=== PATIENT | female | born 1950 | race African-American/Black ===

== ENCOUNTER 2022-06-21 07:24 | Inpatient (IN) | payer OTHER ==
[~2022-06-21] VITALS: Ht 170.2 cm; Wt 130.6 kg
[~2022-06-21 07:24] MED LIST: AMLO5TAB PO; ASPI-1822 PO; BACL10TA4 PO; FURO-572 PO; GABA100C PO; HYDR-1098 PO; LORA10TA19 PO; OLOP5DRO19 LEFT EYE; OLOP5DRO19 RIGHT EYE; PRED20TA5 PO
[2022-06-21 07:43] VITALS: BP 154/72
[2022-06-21] MEDS ORDERED: cefTRIAXone 2,000 MG in DEXTROSE 5% 100 ML IV ONE (07:45)
[2022-06-21] MEDS ORDERED: ACETAMINOPHEN EXTRA STRENGTH 500 MG TAB PO ONE (07:50)
--- NOTE | 2022-06-21 08:00 | NUR ---
PT TAKEN TO RADIOLOGY VIA KRAIG
--- NOTE | 2022-06-21 08:17 | NUR ---
PT BROUGHT BACK VIA KRAIG
--- NOTE | 2022-06-21 08:35 | NUR ---
71YO FEMALE PT BIBA DIALYSIS. PER [facility], 911 WAS CALLED 1HR INTO 4HR DIALYSIS SESSION AFTER PT WAS TACHY AND W/ TEMP OF 101.9. AT ARRIVAL PT AAOX1 TO NAME W/ DELAYED MUMBLED SPEECH- UNKNOWN BASELINE. RECEIVED ON 3L VIA NC AT 96%. CAMILLE WHEEZING NOTED. PORT IN R UPPER CHEST . DENIES PAIN, N/V/D OR SOB. ON NUTTER UP. BED AT LOWEST POSITION, BED RAILS UPX2. HX: HTN, CHF, ESRD, CATH R UPPER CHEST -DIALYSIS (M/W/F) NKA
--- NOTE | 2022-06-21 09:01 | NUR ---
IV INSERTION UNSUCCESSFUL BY [address] QUACH MADE AWARE. ULTRASOUND AT BEDSIDE FOR ULTRASOUND IV
[2022-06-21 09:38] LABS: BASOPHILS % (AUTO) 0.2 % (0.0-2.0); EOSINOPHILS % (AUTO) 0.1 % (0.0-4.0); HEMATOCRIT 30.6 % (36-48); HEMOGLOBIN 9.9 g/dL (12.0-16.0); LYMPHOCYTES # (AUTO) 1.8 K/uL (2.5-16.5); LYMPHOCYTES % (AUTO) 11.7 % (20.5-51.1); MEAN CORPUSCULAR HEMOGLOBIN 31 pg (27-31); MEAN CORPUSCULAR HGB CONC 32 g/dL (33-37); MEAN CORPUSCULAR VOLUME 95.4 fL (80-94); MONOCYTES # (AUTO) 1.4 K/uL (0.8-1.0); MONOCYTES % (AUTO) 9.4 % (1.7-9.3); NEUTROPHILS # (AUTO) 11.8 K/uL (1.8-7.7); NEUTROPHILS % (AUTO) 78.6 % (42.2-75.2); PLATELET COUNT (AUTO) 247 K/uL (140-450); WHITE BLOOD COUNT (AUTO) 15.1 K/uL (4.8-10.8)
[2022-06-21] MEDS ORDERED: cefTRIAXone 2,000 MG VIAL ONE (09:40)
--- NOTE | 2022-06-21 10:00 | NUR ---
# 8 FR Urinary catheter inserted utilizing sterile technique. Immediate return of 20 ml CLOUDY YELLOW urine noted. Urine sample collected and sent to lab. Pt tolerated procedure WELL.
[2022-06-21 10:03] LABS: ACETAMINOPHEN < 0.5 ug/ml (10-30); ALBUMIN 3.3 g/dL (3.4-5.0); ANION GAP 17.3 (8-16); ASPARTATE AMINOTRANSFERASE 23 U/L (15-37); CARBON DIOXIDE 29.6 mmol/L (21-32); CHLORIDE 95 mmol/L (98-107); GLUCOSE 123 mg/dL (74-106); POTASSIUM 3.9 mmol/L (3.5-5.1); SALICYLATE < 2.8 mg/dL (2.8-20.0); SODIUM SERUM 138 mmol/L (136-145); TOTAL BILIRUBIN 0.5 mg/dL (0.0-1.0); UREA NITROGEN, BLOOD 26 mg/dL (7-18)
[2022-06-21 10:04] LABS: CREATININE 4.7 mg/dL (0.6-1.3)
[2022-06-21 10:30] LABS: APPEARANCE,URINE CLOUDY (CLEAR); BILIRUBIN,URINE 1+ (NEGATIVE); BLOOD, URINE 2+ (NEGATIVE); COLOR,URINE AMBER (YELLOW); LEUKOCYTE ESTERASE ,URINE 2+ (NEGATIVE); NITRITE, URINE NEGATIVE (NEGATIVE); PH,URINE 5.5 (5.0-9.0); UGLUCOSE NEGATIVE (NEGATIVE)
--- NOTE | 2022-06-21 10:30 | NUR ---
MADE AWARE OF PT VITALS
[2022-06-21] MEDS ORDERED: ACET-8211 PO (10:32)
[2022-06-21] MEDS ORDERED: IBUPROFEN 600 MG TAB PO ONE (10:35)
[2022-06-21 10:51] LABS: RBC,URINE 20-50 /HPF (0-5); WBC,URINE 16-25 (MOD) /HPF (0-5)
[2022-06-21 10:52] LABS: OTHER CASTS, URINE None Seen /LPF (None Seen)
--- NOTE | 2022-06-21 12:05 | NUR ---
VERBAL ORDERS RECEIVED FROM MD BONE. ORDERS READ BACK, CONFIRMED AND CARRIED OUT.
[2022-06-21] MEDS ORDERED: NACL 0.9% 1,000 ML IV SCH ×2 (12:10→16:25)
[2022-06-21] MEDS ORDERED: VANCOMYCIN PER PHARMACY MC PRN (14:35)
[2022-06-21] MEDS ORDERED: ALBUTEROL HFA MDI 90 MCG/ACTUATION 8 GM INH PRN (14:35)
[2022-06-21] MEDS ORDERED: ALBUTEROL 0.083% 2.5 MG/3 ML NEBU INH PRN (14:45)
[2022-06-21] MEDS ORDERED: ALBUTEROL SULFATE/IPRATROPIU 3 ML SOL IH PRN (15:35)
[2022-06-21] MEDS ORDERED: NOREPINEPHRINE 4 MG/4 ML VIAL IV ONE (15:44)
--- NOTE | 2022-06-21 15:44 | NUR ---
MD BONE MADE AWARE OF PT BP.
[2022-06-21] MEDS: NOREPINEPHRINE 4 MG in DEXTROSE 5% 250 ML IV PRN (15:50)
[2022-06-21] MEDS ORDERED: VANCOMYCIN 1,500 MG in DEXTROSE 5% 500 ML IV SCH (16:00)
[2022-06-21] MEDS ORDERED: VANCOMYCIN 1,500 MG in NACL 0.9% 500 ML IV SCH (16:00)
[2022-06-21] MEDS ORDERED: HYDROcodone/APAP 7.5/325 MG 1 TAB PO PRN (16:25)
[2022-06-21] MEDS ORDERED: ONDANSETRON 4 MG/2 ML VIAL IVP PRN (16:25)
--- NOTE | 2022-06-21 16:45 | NUR ---
NOTED : BP AT 86/52, PT ON LEVAPHED AT 8MCG, PLACED PT ON TRENDE[place]G POSITION. WILL CONTINUE TO MONITOR
[2022-06-21 16:59] LABS: HEMATOCRIT 28.1 % (36-48); HEMOGLOBIN 9.3 g/dL (12.0-16.0); MEAN CORPUSCULAR HEMOGLOBIN 31 pg (27-31); MEAN CORPUSCULAR HGB CONC 33 g/dL (33-37); MEAN CORPUSCULAR VOLUME 92.8 fL (80-94); PLATELET COUNT (AUTO) 236 K/uL (140-450); RED BLOOD CELL COUNT(AUTO) 3.03 MIL/uL (4.20-5.40); RED CELL DISTRIBUTION WIDTH 14.7 % (11.6-13.7)
[2022-06-21 17:02] LABS: WHITE BLOOD COUNT (AUTO) 32.1 K/uL (4.8-10.8)
[2022-06-21] MEDS ORDERED: VANCOMYCIN 1,000 MG VIAL ONE (17:09)
[2022-06-21] MEDS ORDERED: VANCOMYCIN 500 MG VIAL ONE (17:10)
[2022-06-21 17:14] LABS: ANION GAP 14.5 (8-16); CARBON DIOXIDE 29.2 mmol/L (21-32); CHLORIDE 98 mmol/L (98-107); GLUCOSE 123 mg/dL (74-106); POTASSIUM 3.7 mmol/L (3.5-5.1); SODIUM SERUM 138 mmol/L (136-145); UREA NITROGEN, BLOOD 30 mg/dL (7-18)
[2022-06-21 17:19] LABS: PROTHROMBIN TIME 10.7 secs (10.8-13.4)
[2022-06-21 17:25] LABS: LYMPHOCYTES % (MANUAL) 6 % (20-46); METAMYELOCYTES % 1 % (0-0); MONOCYTES % (MANUAL) 1 % (5-12); PROMYELOCYTES % 1 % (0-0)
[2022-06-21 17:27] LABS: CREATININE 5.2 mg/dL (0.6-1.3)
[2022-06-21 17:30] LABS: CHOL/HDL RATIO 3.5 (1-4.5); FREE T4 (FREE THYROXINE) 1.19 ng/dL (0.76-1.46); MAGNESIUM 1.6 mg/dL (1.8-2.4); PHOSPHORUS 3.7 mg/dL (2.5-4.9); THYROID STIMULATING HORMONE 0.6 uIU/mL (0.34-3.74)
[2022-06-21 17:34] LABS: BARBITURATE, URINE NEGATIVE ng/ml (NEG <=200); BENZODIAZEPINE, URINE NEGATIVE ng/mL (NEG <=200); CANNABINOID, URINE NEGATIVE ng/mL (NEG <=50); COCAINE, URINE NEGATIVE ng/mL (NEG <=300); OPIATE, URINE NEGATIVE ng/mL (NEG <=2000); PHENCYCLIDINE SCREEN,URINE NEGATIVE ng/mL (NEG <=25)
[2022-06-21] MEDS: ALBUTEROL SULFATE/IPRATROPIU 3 ML SOL IH SCH (18:00)
--- NOTE | 2022-06-21 19:02 | NUR ---
TX NOT GIVEN. NO WHEEZING, NO C/O SOB, AND PT IN [place]G POSITION FOR THERAPEUTIC REASON
[2022-06-21] MEDS: DOCUSATE SODIUM 100 MG GELCAP PO SCH (21:00)
[2022-06-21] MEDS ORDERED: PIPERACILLIN/TAZOBACTAM 3.375 GM in DEXTROSE 5% 50 ML IV SCH (21:00)
[2022-06-21] MEDS: ZINC SULF 220 MG CAP PO SCH (21:00)
--- NOTE | 2022-06-21 21:44 | NUR ---
PT NEEDS SWALLOW EVAL PRIOR TO PO MEDICATIONS DUE TO LOC.
[2022-06-21] MEDS ORDERED: PIPERACILLIN/TAZOBACTAM 2.25 GM VIAL IV ONE (21:50)
[2022-06-21] MEDS: PIPERACILLIN/TAZOBACTAM 2.25 GM in DEXTROSE 5% 50 ML IV SCH (21:57)
--- NOTE | 2022-06-21 23:35 | NUR ---
PT MOVED TO BED #7
--- NOTE | 2022-06-21 23:40 | NUR ---
INCONTINENT OF LARGE SOFT STOOL. CLEANSED, ANGEL CARE GIVEN, PURWICK CHANGED. PT POSITIONED FOR COMFORT
--- NOTE | 2022-06-22 | NUR ---
REPORT TO SUKH AUSTIN
--- NOTE | 2022-06-22 02:00 | NUR ---
RESTING COMFORTABLY WITH EYES CLOSED, RESPIRATIONS REGULAR AND UNLABORED
[2022-06-22] MEDS: PIPERACILLIN/TAZOBACTAM 2.25 GM in DEXTROSE 5% 50 ML IV SCH ×3 (05:08→21:49)
[2022-06-22] MEDS ORDERED: PIPERACILLIN/TAZOBACTAM 2.25 GM VIAL IV ONE ×3 (05:10→21:41)
--- NOTE | 2022-06-22 06:00 | NUR ---
awake, calling out. ASSISTED WITH POSITIONING FOR COMFORT
--- NOTE | 2022-06-22 07:23 | NUR ---
REPORT TO GEOVANNA HESTER
--- NOTE | 2022-06-22 07:30 | NUR ---
RECEIVED REPORT FROM SUKH AUSTIN AND [facility]
[2022-06-22] MEDS: ALBUTEROL SULFATE/IPRATROPIU 3 ML SOL IH SCH ×3 (07:45→18:32)
--- NOTE | 2022-06-22 07:57 | NUR ---
LAB AT BEDSIDE
[2022-06-22 08:13] LABS: BASOPHILS # (AUTO) 0.1 K/uL (0.00-0.22); BASOPHILS % (AUTO) 0.2 % (0.0-2.0); EOSINOPHILS # (AUTO) 0.1 K/uL (0-0.4); EOSINOPHILS % (AUTO) 0.2 % (0.0-4.0); HEMATOCRIT 31.4 % (36-48); HEMOGLOBIN 10.3 g/dL (12.0-16.0); LYMPHOCYTES # (AUTO) 1.7 K/uL (2.5-16.5); LYMPHOCYTES % (AUTO) 5.9 % (20.5-51.1); MEAN CORPUSCULAR HEMOGLOBIN 31 pg (27-31); MEAN CORPUSCULAR HGB CONC 33 g/dL (33-37); MONOCYTES # (AUTO) 2.4 K/uL (0.8-1.0); MONOCYTES % (AUTO) 8.5 % (1.7-9.3); NEUTROPHILS # (AUTO) 23.9 K/uL (1.8-7.7); NEUTROPHILS % (AUTO) 85.2 % (42.2-75.2); PLATELET COUNT (AUTO) 202 K/uL (140-450); RED BLOOD CELL COUNT(AUTO) 3.34 MIL/uL (4.20-5.40); RED CELL DISTRIBUTION WIDTH 14.9 % (11.6-13.7)
[2022-06-22 08:24] LABS: WHITE BLOOD COUNT (AUTO) 28.1 K/uL (4.8-10.8)
[2022-06-22 08:31] LABS: ANION GAP 18.9 (8-16); CARBON DIOXIDE 22.7 mmol/L (21-32); CHLORIDE 96 mmol/L (98-107); GLUCOSE 121 mg/dL (74-106); POTASSIUM 4.6 mmol/L (3.5-5.1); SODIUM SERUM 133 mmol/L (136-145); UREA NITROGEN, BLOOD 36 mg/dL (7-18)
[2022-06-22 08:32] LABS: CREATININE 5.6 mg/dL (0.6-1.3)
[2022-06-22] MEDS: DOCUSATE SODIUM 100 MG GELCAP PO SCH ×2 (09:00→21:53)
--- NOTE | 2022-06-22 09:13 | NUR ---
PATIENT HAS BEEN SCREENED AND CATEGORIZED MODERATE NUTRITION RISK. PATIENT WILL BE SEEN WITHIN 3-5 DAYS OF ADMISSION. REVIEWED BY BRADEN COTTO RD
[2022-06-22 09:15] LABS: PHOSPHORUS 5.8 mg/dL (2.5-4.9)
[2022-06-22] MEDS: ZINC SULF 220 MG CAP PO SCH ×2 (09:19→21:53)
[2022-06-22] MEDS: PANTOPRAZOLE 40 MG INJ VIAL IVP SCH (09:20)
[2022-06-22] MEDS: ASCORBIC ACID 500 MG TAB PO SCH (09:20)
[2022-06-22] MEDS: VITAMIN D 400 IU TAB PO SCH (09:21)
--- NOTE | 2022-06-22 10:40 | NUR ---
# 18 FR Alejandro catheter with sterile technique. Immediate return of 100 ml CLOUDY urine noted. Bedside drainage bag placed below level of bladder. Urine sample collected and sent to lab. Pt tolerated procedure WELL.
--- NOTE | 2022-06-22 10:42 | NUR ---
PT HAD ONE EPISODE OF LOOSE STOOL
[2022-06-22] MEDS: EPOETIN ALFA-EPBX 4,000 UNITS/ML VIAL IV SCH (11:10)
[2022-06-22] MEDS: SEVELAMER CARBONATE 800 MG TAB PO SCH ×2 (12:00→17:00)
--- NOTE | 2022-06-22 12:15 | NUR ---
pT LAYING IN BED. ABLE TO MAKE NEEDS KNOWN. ALL VSS
[2022-06-22] MEDS: metroNIDAZOLE 500 MG TAB PO SCH ×2 (12:29→17:00)
--- NOTE | 2022-06-22 14:20 | NUR ---
PT LAYING IN BED. TALKING TO DAUGHTER ON PHONE. ABLE TO MAKE NEEDS KNOWN. NO CONFUSION AT THIS TIME
--- NOTE | 2022-06-22 16:47 | NUR ---
PT ASLEEP IN BED AT THIS TIME. ALL BED RAILS UP FOR SAFETY AND BED IN LOWEST POSITION. ALL VSS
--- NOTE | 2022-06-22 17:01 | NUR ---
DC PLANNING PER NOTES, PT ALERT AND ORIENTED X1, THEREFORE, SW OUTREACHED TO TO GATHER COLLATERAL INFORMATION. SPOKE WITH SOPHIA BOLAND WHO REPORTS PT IS IN LONG-TERM CARE WITH FACILITY, ADMISSION DATE; 09/12/21. KYA REPORTS PT'S EMERGENCY CONTACT, GABRIEL, SILVESTRE KAVON ADAMES,SISTER, / [phone]. PT IS REPORTED TO BE A&O X3 AT BASELINE AND IS ABLE TO MAKE NEEDS KNOWN. PT IS REPORTS TO BE PRIMARILY BEDBOUND AND REQUIRES ASSISTANCE WITH ALL ADL;'S THAT STAFF AIDS WITH. PT IS REPORTED TO BE COMPLIANT WITH CARE. KYA REPORTS PT'S SISTER, KAVON IS ACTIVE IN CARE AND IS AWARE PT HAS BEEN ADMITTED TO [facility]. KYA REPORTS PT RECEIVES DIALYSIS TX WITH [facility] ON AT 4:30AM, TRANSPORTATION ARRANGED BY FACILITY, TREATING NEPH. DR. PRABHU WALTER. KYA REPORTS DC PLAN IS FOR PT TO RETURN TO , WHEN MEDICALLY STABLE. Addendum: 06/22/22 at 1703 by Juwan MILLER Amended: Links added.
[2022-06-22] MEDS: NOREPINEPHRINE 4 MG in DEXTROSE 5% 250 ML IV PRN (17:19)
--- NOTE | 2022-06-22 17:29 | NUR ---
PT BP LOW, RESTARTED LEVO
--- NOTE | 2022-06-22 19:40 | NUR ---
ASSUMED CARE OF PT AT THIS TIME. PT UPDATED ON POC. PT IN POSITION OF COMFORT. DENIES ANY PAIN OR NEEDS AT THIS TIME. VSS. AWAITING BED ASSIGNMENT.
--- NOTE | 2022-06-22 20:30 | NUR ---
REPORT CALLED TO BALTAZAR AUSTIN WITH FULL RETURNED VERBAL UNDERSTANDING. PT GOING TO ICU BED 6
--- NOTE | 2022-06-22 20:45 | NUR ---
Patient will be admitted to care of DR. BONE. Admited to ICU. Will go to room 6. Belongings list completed. Report to BALTAZAR AUSTIN.
[2022-06-22 21:00] VITALS: BP 110/60
[2022-06-22 22:00] VITALS: BP 115/65
[2022-06-23] VITALS (10 sets, daily range): BP systolic 104–161; BP diastolic 55–80
[2022-06-23] MEDS ORDERED: PIPERACILLIN/TAZOBACTAM 2.25 GM VIAL IV ONE (05:39)
[2022-06-23] MEDS: PIPERACILLIN/TAZOBACTAM 2.25 GM in DEXTROSE 5% 50 ML IV SCH ×2 (05:45→12:00)
[2022-06-23] MEDS: ALBUTEROL SULFATE/IPRATROPIU 3 ML SOL IH SCH ×3 (06:00→18:00)
[2022-06-23] MEDS ORDERED: VANCOMYCIN PER PHARMACY MC PRN (08:25)
[2022-06-23] MEDS: PANTOPRAZOLE 40 MG INJ VIAL IVP SCH (08:41)
[2022-06-23] MEDS: SEVELAMER CARBONATE 800 MG TAB PO SCH ×3 (08:41→16:56)
[2022-06-23] MEDS: DOCUSATE SODIUM 100 MG GELCAP PO SCH ×2 (08:41→20:12)
[2022-06-23] MEDS: VITAMIN D 400 IU TAB PO SCH (08:41)
[2022-06-23] MEDS: ZINC SULF 220 MG CAP PO SCH ×2 (08:42→20:13)
[2022-06-23] MEDS: ASCORBIC ACID 500 MG TAB PO SCH (08:42)
--- NOTE | 2022-06-23 08:52 | NUR ---
PT. WITH LOW NABEEL SCALE AT MODERATE TO HIGH RISK, CONTINUE TO FOLLOW PRESSURE INJURY PREVENTION INTERVENTIONS. -POSITIONING: TURN AND REPOSITION PATIENT Q 2H OR SOONER USE PILLOWS TO KEEP BONY PROMINENCES FROM DIRECT CONTACT WITH SURFACES USE REPOSITIONING WEDGES TO PROVIDE 30-DEGREE ANGLE FOR SIDE LYING POSITIONS OFFLOADING OR FOAM DRESSING TO ALL TUBING TO PREVENT MEDICAL DEVICES RELATED PRESSURE INJURY -RE-EVALUATING AND MANAGING INCONTINENCE MONITOR SKIN CONDITION DURING POSITION CHANGE DO NOT MASSAGE REDNESS, BONY PROMINENCES FREQUENT ANGEL-CARE AND PROVIDE BARRIER CREAMS PRN IF SOILING MOISTURE CONTROL BY OFFER BED MOYER/URINAL /ABSORBENT PAD TO WICK AND HOLD MOISTURE KEEP SKIN DRY AND PROTECT FROM FRICTION -MANAGE FRICTION/SHEAR/MOBILITY KEEP HOB AT THE LOWEST LEVEL OF ELEVATION NO MORE THAN 30 DEGREE UNLESS OTHERWISE CONTRAINDICATED USE LIFT SHEET OR TRANSFER DEVICE TO MOVE PATIENT AND PREVENT LATERAL SHEER. PROTECT HEELS, ELBOWS BONY PROMINENCES WITH SKIN BERRIES OR FOAM DRESSING IF EXPOSED TO FRICTION OFFLOAD BILATERAL HEELS BY PLACING PILLOWS UNDER CALVES AT ALL TIMES, UNLESS OTHERWISE CONTRAINDICATED -PRESSURE REDISTRIBUTION SURFACE THERAPY MINE ISOFLEX MATTRESS -NUTRITION: PLEASE FOLLOW RD RECOMMENDATIONS AND OFFER NUTRITION SUPPLEMENTS IF ORDERED. PLEASE CONTACT WOUND CARE NURSE FOR ANY QUESTION AND CHANGE OF WOUND CONDITION.
--- NOTE | 2022-06-23 09:00 | NUR ---
SCHEDULED MEDICATIONS DUE GIVEN. WILL CONTINUE TO MONITOR.
[2022-06-23] MEDS: ACETAMINOPHEN 325 MG TAB PO PRN ×2 (09:55→16:55)
--- NOTE | 2022-06-23 09:55 | NUR ---
COMPLAINS OF MILD HEADACHES, TYLENOL PO PRN GIVEN.
[2022-06-23 11:26] LABS: CARBON DIOXIDE 28.4 mmol/L (21-32); CHLORIDE 92 mmol/L (98-107); GLUCOSE 116 mg/dL (74-106); POTASSIUM 4.4 mmol/L (3.5-5.1); SODIUM SERUM 132 mmol/L (136-145); UREA NITROGEN, BLOOD 55 mg/dL (7-18)
[2022-06-23 11:28] LABS: BASOPHILS % (AUTO) 0.1 % (0.0-2.0); HEMATOCRIT 24.6 % (36-48); HEMOGLOBIN 8.2 g/dL (12.0-16.0); LYMPHOCYTES # (AUTO) 1.6 K/uL (2.5-16.5); LYMPHOCYTES % (AUTO) 5.8 % (20.5-51.1); MEAN CORPUSCULAR HEMOGLOBIN 31 pg (27-31); MEAN CORPUSCULAR HGB CONC 33 g/dL (33-37); MEAN CORPUSCULAR VOLUME 91.3 fL (80-94); MONOCYTES # (AUTO) 1.4 K/uL (0.8-1.0); MONOCYTES % (AUTO) 4.8 % (1.7-9.3); NEUTROPHILS # (AUTO) 25.4 K/uL (1.8-7.7); NEUTROPHILS % (AUTO) 89.3 % (42.2-75.2); PLATELET COUNT (AUTO) 240 K/uL (140-450); RED BLOOD CELL COUNT(AUTO) 2.69 MIL/uL (4.20-5.40); RED CELL DISTRIBUTION WIDTH 14.6 % (11.6-13.7)
[2022-06-23 11:30] LABS: MAGNESIUM 2.2 mg/dL (1.8-2.4)
[2022-06-23 11:44] LABS: WHITE BLOOD COUNT (AUTO) 28.5 K/uL (4.8-10.8)
--- NOTE | 2022-06-23 12:00 | NUR ---
SCHEDULED MEDICATIONS DUE GIVEN.
--- NOTE | 2022-06-23 14:17 | NUR ---
PATIENT LYING DOWN IN BED SLEEPING AROUSABLE BY VOICE. NO DISTRESS NOTED. NO BM YET FOR CDIFF SAMPLE. WILL CONTINUE TO MONITOR.
[2022-06-23] MEDS: FLUCONAZOLE 200 MG/NS PREMIX 100 ML IV SCH (17:50)
--- NOTE | 2022-06-23 18:59 | NUR ---
NURSES NOTE PATIENT TRANSFER FROM ICU TO OUR FLOOR NOW , VSS , ON ROOM AIR , SKIN INTACT SALINE LOCKED , LOWER EXTREMITY EDEMA , MISSED HD YESTERDAY, A/OX3 , STILL UNDE5R V OBSERVE .
--- NOTE | 2022-06-23 19:09 | NUR ---
GAVE REPORT TO CARGO AND RAMP SERVICES MANAGER NURSE FOR CONTINUITY OF CARE.
--- NOTE | 2022-06-23 19:29 | NUR ---
REPORT GIVEN TO RUBEN , ALL HIS QUESTION ANSWERED .
--- NOTE | 2022-06-23 20:00 | NUR ---
RECEIVED REPORT FROM DAY RN FOR CONTINUITY OF CARE. PT AWAKE, ALERT AND ORIENTED X 4, ON ROOM AIR. BREATHING EVEN AND UNLABORED. NO S/SX OF DISTRESS NOTED. ALL PRECAUTIONS IN PLACE. CALL LIGHT WITHIN REACH. WILL CONTINUE TO MONITOR.
--- NOTE | 2022-06-23 20:47 | NUR ---
PATIENT AWAKE WATCHING TV, LYING SEMI FOWLERS POSITION. SCHEDULED MEDICATIONS GIVEN. NO SIGNS OF DISTRESS NOTED, WILL CONTINUE TO MONITOR.
[2022-06-24] VITALS: BP 123/80
--- NOTE | 2022-06-24 01:47 | NUR ---
PT ASLEEP. NO S/SX OF DISTRESS NOTED. ALL PRECAUTIONS IN PLACE. CALL LIGHT WITHIN REACH. WILL CONTINUE TO MONITOR.
[2022-06-24 04:00] VITALS: BP 116/66
[2022-06-24] MEDS: ALBUTEROL SULFATE/IPRATROPIU 3 ML SOL IH SCH ×3 (06:45→20:40)
[2022-06-24 06:58] LABS: HEMOGLOBIN 7.7 g/dL (12.0-16.0); MEAN CORPUSCULAR HEMOGLOBIN 30 pg (27-31); MEAN CORPUSCULAR HGB CONC 34 g/dL (33-37); MEAN CORPUSCULAR VOLUME 90.5 fL (80-94); PLATELET COUNT (AUTO) 249 K/uL (140-450); RED BLOOD CELL COUNT(AUTO) 2.54 MIL/uL (4.20-5.40); RED CELL DISTRIBUTION WIDTH 14.8 % (11.6-13.7)
--- NOTE | 2022-06-24 07:05 | NUR ---
PT IS STABLE. NO ACUTE EVENTS THROUGHOUT THE NIGHT. NO S/SX OF DISTRESS AT THIS MOMENT. ALL NEEDS ATTENDED. ALL PRECAUTIONS IN PLACE. CALL LIGHT WITHIN REACH. WILL CONTINUE TO MONITOR.
[2022-06-24 07:18] LABS: ANION GAP 19.4 (8-16); CARBON DIOXIDE 23.9 mmol/L (21-32); CHLORIDE 91 mmol/L (98-107); GLUCOSE 111 mg/dL (74-106); PHOSPHORUS 5.4 mg/dL (2.5-4.9); POTASSIUM 4.3 mmol/L (3.5-5.1); SODIUM SERUM 130 mmol/L (136-145)
[2022-06-24 07:37] LABS: CREATININE 7.1 mg/dL (0.6-1.3); UREA NITROGEN, BLOOD 77 mg/dL (7-18)
[2022-06-24 08:00] VITALS: BP 130/63
[2022-06-24] MEDS: SEVELAMER CARBONATE 800 MG TAB PO SCH ×3 (08:00→17:37)
[2022-06-24] MEDS: ZINC SULF 220 MG CAP PO SCH ×2 (09:00→20:25)
[2022-06-24] MEDS: PANTOPRAZOLE 40 MG INJ VIAL IVP SCH (09:00)
[2022-06-24] MEDS: ASCORBIC ACID 500 MG TAB PO SCH (09:00)
[2022-06-24] MEDS: DOCUSATE SODIUM 100 MG GELCAP PO SCH ×2 (09:00→20:26)
[2022-06-24] MEDS: VITAMIN D 400 IU TAB PO SCH (09:00)
[2022-06-24] MEDS: EPOETIN ALFA-EPBX 4,000 UNITS/ML VIAL IV SCH (09:00)
[2022-06-24 09:13] LABS: WHITE BLOOD COUNT (AUTO) 27.3 K/uL (4.8-10.8)
[2022-06-24 09:14] LABS: LYMPHOCYTES % (MANUAL) 4 % (20-46); MONOCYTES % (MANUAL) 3 % (5-12)
--- NOTE | 2022-06-24 11:10 | NUR ---
AT ROUGHLY 0920, DIALYSIS WAS STARTED. DIALYSIS NURSE SPOKE WITH DR FERGUSON AND AUTHORIZED PT TO GET THE DIALYSIS THROUGH CURRENT PORT.
--- NOTE | 2022-06-24 11:42 | NUR ---
DR FERGUSON AND DR GONZALEZ MADE AWARE OF DISCHARGE FROM RIGHT CHEST PERMA CATH.
[2022-06-24 12:00] VITALS: BP 116/67
[2022-06-24] MEDS ORDERED: VANCOMYCIN 1,000 MG in DEXTROSE 5% 250 ML IV SCH (15:00)
[2022-06-24 16:00] VITALS: BP 122/50
--- NOTE | 2022-06-24 18:43 | NUR ---
PT HD REMOVED AT ROUHGHLY 1330, NO BLEEDING NOTED. PENDING PROCEDURE FOR HD TUNNEL PLACEMENT 06/25/2022. ALL SAFETY MEASURES IN PLACE, CALL WITHIN REACH. WILL CONTINUE TO MONITOR.
--- NOTE | 2022-06-24 19:30 | NUR ---
RECEIVED REPORT FROM DAY SHIFT NURSE. PATIENT IS AWAKE, A&O X4. PT IS ON ROOM AIR. +1 EDEMA LOCATED IN LOWER EXTREMITIES, BUT OVERALL SKIN IS INTACT. PT HAS TWO IV'S IN THE RIGHT FOREARM, GAUGE 22 AND 18, BOTH PATENT, NO SIGNS OF INFECTION/INFILTRATION NOTED. PT PLACED IN HIGH FOWLERS POSITION, BED LOWERED TO LOWEST POINT AND CALL LIGHT WITHIN REACH. WILL CONTINUE TO MONITOR.
[2022-06-24 20:00] VITALS: BP 98/58
--- NOTE | 2022-06-24 20:30 | NUR ---
SCHEDULED MEDICATIONS GIVEN, NO SIGNS OF DISTRESS NOTED, WILL CONTINUE TO MONITOR.
[2022-06-24] MEDS: ACETAMINOPHEN 325 MG TAB PO PRN (21:22)
--- NOTE | 2022-06-24 21:25 | NUR ---
PATIENT REPORTED BACK PAIN ON A SCALE OF 4/10. TYLENOL WAS ADMINISTERED PRN, PER PHYSICIANS ORDER. NO OTHER SIGNS OF PAIN NOTED, WILL CONTINUE TO MONITOR.
[2022-06-25] VITALS: BP 112/52
--- NOTE | 2022-06-25 | NUR ---
PT S ASLEEP. NO SIGNS OR SYMPTOMS OF DISTRESS NOTED. ALL PRECAUTIONS IN PLACE. CALL LIGHT WITHIN REACH. WILL CONTINUE TO MONITOR.
--- NOTE | 2022-06-25 02:48 | NUR ---
AT AROUND 0145, PATIENT BEGAN EXPERIENCING AN UNCONTROLLABLE COUGH. PT EXPLAINED THE COUGH HAS BEEN ON AND OFF THROUGHOUT THE DAY AND NIGHT. REQUESTED AN ORDER FOR ROBITUSSIN TO HELP EASE SYMPTOMS. PT OTHERWISE STABLE. RAISED HOB, ALL SAFETY PRECAUTIONS IN PLACE AND CALL LIGHT WITHIN REACH, WILL CONTINUE TO MONITOR.
[2022-06-25 04:00] VITALS: BP 108/59
[2022-06-25] MEDS: ALBUTEROL SULFATE/IPRATROPIU 3 ML SOL IH SCH ×3 (06:00→20:11)
[2022-06-25 07:00] LABS: HEMATOCRIT 22.8 % (36-48); HEMOGLOBIN 7.6 g/dL (12.0-16.0); MEAN CORPUSCULAR HEMOGLOBIN 30 pg (27-31); MEAN CORPUSCULAR HGB CONC 33 g/dL (33-37); MEAN CORPUSCULAR VOLUME 90.5 fL (80-94); PLATELET COUNT (AUTO) 256 K/uL (140-450); RED BLOOD CELL COUNT(AUTO) 2.52 MIL/uL (4.20-5.40); RED CELL DISTRIBUTION WIDTH 14.7 % (11.6-13.7); WHITE BLOOD COUNT (AUTO) 19.3 K/uL (4.8-10.8)
--- NOTE | 2022-06-25 07:09 | NUR ---
ENDORSED PT TO DAY SHIFT RN FOR CONTINUITY OF CARE. PT IS STABLE.
[2022-06-25 07:19] LABS: ANION GAP 16.6 (8-16); CARBON DIOXIDE 25.9 mmol/L (21-32); CHLORIDE 97 mmol/L (98-107); GLUCOSE 143 mg/dL (74-106); POTASSIUM 3.5 mmol/L (3.5-5.1); SODIUM SERUM 136 mmol/L (136-145); UREA NITROGEN, BLOOD 47 mg/dL (7-18)
--- NOTE | 2022-06-25 07:30 | NUR ---
RECEIVED REPORT FROM US MARKETING DIRECTOR NURSE FOR CONTINUITY OF CARE, POC DISCUSSED. PT IS LAYING IN BED ON HER PHONE, CHEST RISING AND FALLING WITH AN INTERMITTENT COUGH NOTED. PT REPORTS SLEEPING DURING THE NIGHT. ALL SAFETY MEASURES IN PLACE, CALL LIGHT WITHIN REACH. WILL CONTINUE TO MONITOR.
--- NOTE | 2022-06-25 07:30 | NUR ---
PATIENT REFUSED SCHEDULED 0700 BREATHING TREATMENT. EXCLAIMED THEY ARE OK AND WILL NOT NEED IT. EXPLAINED BENEFITS FROM BREATHING TREATMENTS. EXPLAINED IF THE PATIENT NEEDED A BREATHING TREATMENT BEFORE NEXT SCHEDULED BREATHING TREATMENT, 1300, GIVE ME OR THE NURSE CALL.PATIENT AGREED.
[2022-06-25 07:37] LABS: MAGNESIUM 1.9 mg/dL (1.8-2.4); PHOSPHORUS 4.1 mg/dL (2.5-4.9)
[2022-06-25 07:57] LABS: CREATININE 5.1 mg/dL (0.6-1.3)
[2022-06-25 08:00] VITALS: BP 119/80
[2022-06-25] MEDS: SEVELAMER CARBONATE 800 MG TAB PO SCH ×3 (08:00→17:00)
[2022-06-25] MEDS: VITAMIN D 400 IU TAB PO SCH (09:00)
[2022-06-25] MEDS: ZINC SULF 220 MG CAP PO SCH ×2 (09:00→20:36)
[2022-06-25] MEDS: ASCORBIC ACID 500 MG TAB PO SCH (09:00)
[2022-06-25] MEDS: guaiFENesin 600 MG TABER PO SCH ×2 (09:00→20:36)
[2022-06-25] MEDS: DOCUSATE SODIUM 100 MG GELCAP PO SCH ×2 (09:00→20:36)
[2022-06-25] MEDS: PANTOPRAZOLE 40 MG INJ VIAL IVP SCH (09:00)
--- NOTE | 2022-06-25 09:00 | NUR ---
ALL MORNING MEDICATION HELD DUE TO NPO STATUS FOR HD PROCEDURE. PT REFUSED IVP PROTIX. BENEFITS EXPLAINED TO PT. PT ASKED REGARDING REFUSAL FOR BREATHING TREATMENT AND STATES IT CAUSES HER TO COUGH MORE. EDUCATION PROVIDED. VSS. ALL SAFETY MEASURES IN PLACE, CALL LIGHT WITHIN REACH WILL CONTINUE TO MONITOR
[2022-06-25 09:27] LABS: BASOPHILS # (AUTO) 0.1 K/uL (0.00-0.22); BASOPHILS % (AUTO) 0.4 % (0.0-2.0); EOSINOPHILS % (AUTO) 0.1 % (0.0-4.0); LYMPHOCYTES # (AUTO) 2.2 K/uL (2.5-16.5); LYMPHOCYTES % (AUTO) 11.2 % (20.5-51.1); LYMPHOCYTES % (MANUAL) 18 % (20-46); MONOCYTES # (AUTO) 1.7 K/uL (0.8-1.0); MONOCYTES % (AUTO) 8.6 % (1.7-9.3); MONOCYTES % (MANUAL) 4 % (5-12); NEUTROPHILS # (AUTO) 15.4 K/uL (1.8-7.7); NEUTROPHILS % (AUTO) 79.7 % (42.2-75.2); PLATELET COUNT,MANUAL 256 K/uL (150-450)
--- NOTE | 2022-06-25 10:15 | NUR ---
PAGED DR GONZALEZ REGARDING TIME OF HD PROCEDURE. PT SISTER AND PT EXPRESSING THEIR FRUSTRATION REGARDING NO ASSIGNED TIME. INFORMED THEM SOON DR GONZALEZ RESPONDS, RN WILL UPDATE THEM.
[2022-06-25 12:00] VITALS: BP 130/84
--- NOTE | 2022-06-25 12:48 | NUR ---
ROOF FITTER AT BEDSIDE. PT STABLE.
--- NOTE | 2022-06-25 13:53 | NUR ---
RIGHT FOREARM IV REMOVED, CATH IN PLACE. ALL SAFETY MEASURES IN PLACE. CALL LIGHT WITHIN REACH. WILL CONTINUE TO MONITOR.
--- NOTE | 2022-06-25 14:07 | NUR ---
CALLED PTS SISTER TO UPDATE HER ON STILL WAITING TO HEAR FROM DR GONZALEZ. PAGED ATTENDING FOR ANY UPDATES ON PROCEDURE AND DIET ORDER.
--- NOTE | 2022-06-25 14:51 | NUR ---
SPOKE TO DR GONZALEZ, DR GONZALEZ STATED PT CAN HAVE A DIET ORDER, NO URGENT NEED FOR DIALYSIS AT THIS TIME. GUILLERMINA CATHETER WILL BE INSERTED INSTEAD WHEN NEEDED, HOLIDAY FOR A FEW DAYS TO TREND LAB AND RESOLVE INFECTION. PT UPDATED, NEPHRO AT BEDSIDE EXPLAINING AND ANSWERING QUESTIONS. SISTER CALLED AND GIVEN AN UPDATE. LAB CURRENTLY AT BEDSIDE DRAWING BLOOD CULTURES. RAJA SANDWICH PROVIDED TO PT UPON REQUEST.
[2022-06-25 16:00] VITALS: BP 123/78
--- NOTE | 2022-06-25 16:46 | NUR ---
06/25/22 RD INITIAL ASSESSMENT COMPLETED PLEASE REFER TO NUTRITION ASSESSMENT UNDER CARE ACTIVITY FOR ESTIMATED NUTRITIONAL NEEDS. 1. CONTINUE RENAL DIET 2. RECOMMEND NEPRO 1XDAY. 3. MONITOR PO INTAKE, GI, AND LAB VALUES. 4. RD TO FOLLOW-UP 3-5 DAYS, MODERATE RISK REVIEWED BY BRADEN COTTO RD
--- NOTE | 2022-06-25 16:47 | NUR ---
SISTER AT BEDSIDE REPORTING PATIENT CHOKING, PT SAT UP AND ABLE TO STOP COUGHING. VITAL SIGNS TAKEN, 152/86, 109 HEART RATE, 94% O2, 26 RR. PT STATES SHE "TOOK TOO BIG OF A BITE AND IT WENT DOWN THE WRONG TUBE". SUCTION HAS BEEN SET UP AT BEDSIDE, RESP THERAPY CALLED DUE TO PT BEING AGREEABLE TO BREATHING TREATMENT.
[2022-06-25] MEDS: FLUCONAZOLE 200 MG/NS PREMIX 100 ML IV SCH (18:15)
--- NOTE | 2022-06-25 18:20 | NUR ---
KAREN MEDICATION ADMINISTERED PER MD ORDER, PT TOLERATED ADMINISTRATION. IV PATENT AND INTACT WITH NO S/S OF DISTRESS. ALL SAFETY MEASURES IN PLACE, CALL LIGHT WITHIN REACH. WILL CONTINUE TO MONITOR
--- NOTE | 2022-06-25 18:53 | NUR ---
ALL NEEDS HAVE BEEN MET THROUGHOUT THE SHIFT, ALL SAFETY MEASURES IN PLACE. CALL LIGHT WITHIN REACH. PT STABLE
--- NOTE | 2022-06-25 19:30 | NUR ---
RECEIVED REPORT FROM DAY SHIFT RN RAUL FOR CONTINUITY OF CARE. PT IS AWAKE AND ALERT. PT IS ON RA SATING 94%. PT HAS INTERMITTENT COUGH. PT HAS FC DRAINING TO GRAVITY. PT HAS RIGHT FOREARM 18 GAUGE SALINE LOCK. POC DISCUSSED. WILL CONTINUE TO MONITOR THE PT.
[2022-06-25 20:00] VITALS: BP 103/51
[2022-06-25] MEDS: ACETAMINOPHEN 325 MG TAB PO PRN (20:37)
--- NOTE | 2022-06-25 20:40 | NUR ---
SCHEDULE MEDICATIONS GIVEN. NO ADVERSE REACTION NOTED. NO COMPLAINS AT THIS TIME. WILL CONTINUE TO MONITOR THE PT.
[2022-06-26] VITALS: BP 127/68
--- NOTE | 2022-06-26 00:15 | NUR ---
VITAL SIGNS TAKEN AND STABLE. PT DENIES ANY PAIN AND HAS NO COMPLAINS. PT NOT IN ANY RESPIRATORY DISTRESS. PT STILL HAS INTERMITTENT COUGH.
--- NOTE | 2022-06-26 02:35 | NUR ---
PT S ASLEEP. NO SIGNS OR SYMPTOMS OF DISTRESS NOTED. ALL PRECAUTIONS IN PLACE. CALL LIGHT WITHIN REACH. WILL CONTINUE TO MONITOR.
[2022-06-26 04:00] VITALS: BP 131/79
--- NOTE | 2022-06-26 04:15 | NUR ---
VITAL SIGNS TAKEN AND STABLE. PT IS RESTING IN BED. PT IS CALM. DENIES ANY PAIN AND HAS NO COMPLAINS. WILL CONTINUE TO MONITOR THE PT.
[2022-06-26] MEDS: ALBUTEROL SULFATE/IPRATROPIU 3 ML SOL IH SCH ×3 (06:00→18:00)
--- NOTE | 2022-06-26 07:09 | NUR ---
ENDORSED PT TO DAY SHIFT RN TERRI FOR CONTINUITY OF CARE. PT IS STABLE.
--- NOTE | 2022-06-26 07:10 | NUR ---
RECEIVED REPORT FRON V BELT SKIVER NURSE FOR CONTINUITY OF ARE. PT IS STABLE.
[2022-06-26 07:24] LABS: BASOPHILS # (AUTO) 0.1 K/uL (0.00-0.22); BASOPHILS % (AUTO) 0.3 % (0.0-2.0); EOSINOPHILS # (AUTO) 0.4 K/uL (0-0.4); EOSINOPHILS % (AUTO) 2.2 % (0.0-4.0); HEMATOCRIT 23.2 % (36-48); HEMOGLOBIN 7.8 g/dL (12.0-16.0); LYMPHOCYTES # (AUTO) 3.7 K/uL (2.5-16.5); LYMPHOCYTES % (AUTO) 20.9 % (20.5-51.1); MEAN CORPUSCULAR HEMOGLOBIN 31 pg (27-31); MEAN CORPUSCULAR HGB CONC 34 g/dL (33-37); MEAN CORPUSCULAR VOLUME 91.4 fL (80-94); MONOCYTES # (AUTO) 2.3 K/uL (0.8-1.0); MONOCYTES % (AUTO) 12.7 % (1.7-9.3); NEUTROPHILS # (AUTO) 11.4 K/uL (1.8-7.7); NEUTROPHILS % (AUTO) 63.9 % (42.2-75.2); PLATELET COUNT (AUTO) 269 K/uL (140-450); RED BLOOD CELL COUNT(AUTO) 2.54 MIL/uL (4.20-5.40); RED CELL DISTRIBUTION WIDTH 15.2 % (11.6-13.7); WHITE BLOOD COUNT (AUTO) 17.9 K/uL (4.8-10.8)
--- NOTE | 2022-06-26 07:30 | NUR ---
BREATHING TREATMENT ON HOLD. PT WAS SLEEPING.
[2022-06-26 07:36] LABS: ANION GAP 16.2 (8-16); CARBON DIOXIDE 26.4 mmol/L (21-32); CHLORIDE 97 mmol/L (98-107); GLUCOSE 119 mg/dL (74-106); POTASSIUM 3.6 mmol/L (3.5-5.1); SODIUM SERUM 136 mmol/L (136-145); UREA NITROGEN, BLOOD 60 mg/dL (7-18)
[2022-06-26 07:51] LABS: CREATININE 5.9 mg/dL (0.6-1.3)
[2022-06-26 08:00] VITALS: BP 137/73
[2022-06-26 08:31] LABS: MAGNESIUM 1.6 mg/dL (1.8-2.4); PHOSPHORUS 4.4 mg/dL (2.5-4.9)
[2022-06-26] MEDS: SEVELAMER CARBONATE 800 MG TAB PO SCH ×3 (09:00→17:10)
[2022-06-26] MEDS ORDERED: FUROSEMIDE 40 MG TAB PO SCH (09:00)
[2022-06-26] MEDS: guaiFENesin 600 MG TABER PO SCH ×2 (09:01→20:14)
[2022-06-26] MEDS: PANTOPRAZOLE 40 MG INJ VIAL IVP SCH (09:01)
[2022-06-26] MEDS: EPOETIN ALFA-EPBX 4,000 UNITS/ML VIAL IV SCH (09:01)
[2022-06-26] MEDS: ZINC SULF 220 MG CAP PO SCH ×2 (09:02→20:16)
[2022-06-26] MEDS: DOCUSATE SODIUM 100 MG GELCAP PO SCH ×2 (09:02→20:16)
[2022-06-26] MEDS: VITAMIN D 400 IU TAB PO SCH (09:03)
[2022-06-26] MEDS: ASCORBIC ACID 500 MG TAB PO SCH (09:04)
[2022-06-26 12:00] VITALS: BP 123/57
[2022-06-26] MEDS ORDERED: MAG SULF 2000 MG/WATER PREMIX 50 ML IV PRN (12:20)
[2022-06-26 16:00] VITALS: BP 132/72
[2022-06-26] MEDS ORDERED: diphenhydrAMINE 50 MG/ML VIAL IVP PRN (17:20)
--- NOTE | 2022-06-26 17:51 | NUR ---
PT REPORTS BREATHING HAS BECOME EASIER AND THAT LUNGS FEEL MORE OPEN. NOT REALLY WORKING WITH THE IS. I HAD HER DO IT 8 TIMES. SHE IS NOT REALLY ABLE TO HOLD BREATH AT THE END AND HER MAX READING WAS 1000. I REMINDED HER THAT SHE NEEDS TO DO THIS 8-10 TIMES PER HOUR. I WENT BACK 2 HOURS LATER AND SHE HAD ONLY DONE IT TWICE. i REALLY EXPLAINED THE REASON THIS IS SO IMPORTANT. SHE IS COUGHING BUT IT IS NONPREDUCTIVE. TH IS WILL HELP LOOSEN AND MOVE THE SECRETIONS. sHE WAS MORE AMENABLE TO PERFORM THE TASK.
--- NOTE | 2022-06-26 19:10 | NUR ---
ENDORSED T TO FLANGE MACHINE OPERATOR FOR CONTINUITY OF CARE. PT IS STABLE.
--- NOTE | 2022-06-26 19:30 | NUR ---
RECEIVED REPORT FROM DAY SHIFT GEOVANNA MURRAY FOR CONTINUITY OF CARE. PT IS AWAKE AND ALERT. PT IS ON RA SATING 93%. . PT HAS FC DRAINING TO GRAVITY. PT HAS RIGHT FOREARM 122 GAUGE ON LEFT FOREARM SALINE LOCK. POC DISCUSSED. WILL CONTINUE TO MONITOR THE PT.
[2022-06-26 20:00] VITALS: BP 144/70
[2022-06-26] MEDS: ACETAMINOPHEN 325 MG TAB PO PRN (20:16)
--- NOTE | 2022-06-26 20:19 | NUR ---
SCHEDULE MEDICATION GIVEN. NO ADVERSE REACTION NOTED. WILL CONTINUE TO MONITOR THE PT.
[2022-06-27] VITALS: BP 136/72
--- NOTE | 2022-06-27 00:05 | NUR ---
OBSERVED PT. PT IS SLEEPING COMFORTABLY IN BED. PT NOT IN ANY ACUTE DISTRESS. BREATHING EVEN AND UNLABORED. VITAL SIGNS STABLE. IVF RUNNING PER MD ORDER. SAFETY PRECAUTIONS TAKEN. WILL CONTINUE TO MONITOR
[2022-06-27 04:00] VITALS: BP 142/77
--- NOTE | 2022-06-27 04:05 | NUR ---
VITAL SIGNS TAKEN AND STABLE. PT NOT IN ANY RESPIRATORY DISTRESS. PT HAS NO COMPLAINS AT THIS TIME. BED AT THE LOWEST POSITION. HEAD OF THE BED RAISED. WILL CONTINUE TO MONITOR THE PT.
[2022-06-27] MEDS: ALBUTEROL SULFATE/IPRATROPIU 3 ML SOL IH SCH ×3 (06:00→20:45)
--- NOTE | 2022-06-27 07:05 | NUR ---
RECEIVED REPORT FRON TRIMMER BUFFING WHEEL NURSE FOR CONTINUITY OF ARE. PT IS STABLE.
--- NOTE | 2022-06-27 07:06 | NUR ---
ENDORSED PT TO DAY SHIFT RN FOR CONTINUITY OF CARE. PT IS STABLE.
[2022-06-27 08:00] VITALS: BP 121/57
[2022-06-27] MEDS: SEVELAMER CARBONATE 800 MG TAB PO SCH ×3 (08:00→16:52)
[2022-06-27 09:01] LABS: BASOPHILS % (AUTO) 0.2 % (0.0-2.0); HEMATOCRIT 24.3 % (36-48); LYMPHOCYTES # (AUTO) 2.5 K/uL (2.5-16.5); LYMPHOCYTES % (AUTO) 11.5 % (20.5-51.1); MEAN CORPUSCULAR HEMOGLOBIN 30 pg (27-31); MEAN CORPUSCULAR HGB CONC 33 g/dL (33-37); MEAN CORPUSCULAR VOLUME 91.6 fL (80-94); MONOCYTES % (AUTO) 4.5 % (1.7-9.3); NEUTROPHILS # (AUTO) 18.5 K/uL (1.8-7.7); NEUTROPHILS % (AUTO) 83.8 % (42.2-75.2); PLATELET COUNT (AUTO) 291 K/uL (140-450); RED BLOOD CELL COUNT(AUTO) 2.65 MIL/uL (4.20-5.40); RED CELL DISTRIBUTION WIDTH 15.8 % (11.6-13.7); WHITE BLOOD COUNT (AUTO) 22.1 K/uL (4.8-10.8)
[2022-06-27 09:10] LABS: ANION GAP 19.9 (8-16); CARBON DIOXIDE 22.3 mmol/L (21-32); CHLORIDE 97 mmol/L (98-107); GLUCOSE 160 mg/dL (74-106); POTASSIUM 4.2 mmol/L (3.5-5.1); SODIUM SERUM 135 mmol/L (136-145)
[2022-06-27 09:14] LABS: UREA NITROGEN, BLOOD 85 mg/dL (7-18)
[2022-06-27 09:15] LABS: CREATININE 5.6 mg/dL (0.6-1.3)
[2022-06-27] MEDS: PANTOPRAZOLE 40 MG INJ VIAL IVP SCH (09:40)
[2022-06-27] MEDS: DOCUSATE SODIUM 100 MG GELCAP PO SCH ×2 (09:41→21:14)
[2022-06-27] MEDS: guaiFENesin 600 MG TABER PO SCH ×2 (09:41→21:14)
[2022-06-27] MEDS: VITAMIN D 400 IU TAB PO SCH (09:41)
[2022-06-27] MEDS: ASCORBIC ACID 500 MG TAB PO SCH (09:41)
[2022-06-27 12:00] VITALS: BP 152/67
[2022-06-27 16:00] VITALS: BP 134/76
[2022-06-27] MEDS: FLUCONAZOLE 200 MG/NS PREMIX 100 ML IV SCH (18:46)
--- NOTE | 2022-06-27 19:35 | NUR ---
ENDORSED PT TO TOOL GRINDER FOR CONTINUITY OF CARE. PT STABLE.
--- NOTE | 2022-06-27 19:35 | NUR ---
RECEIVED ENDORSEMENT FROM DAY SHIFT NURSE. PT IS AWAKE , ALERT AND VERBALLY RESPONSIVE. PT NON AMBULATORY. SHE IS AT ROOM AIR. NPO AT THIS TIME DUE TO DIALYSIS SHUNT PLACEMENT TOMORROW. IV SITE IS ON LEFT FOREARM 22G AND IS SALINE LOCK.
[2022-06-27 20:00] VITALS: BP 150/76
--- NOTE | 2022-06-27 21:00 | NUR ---
PT IS AWAKE AND WATCH TV, SHE IS STABLE, DENIES OF PAIN OR DISCOMFORT. NO SOB OR DISTRESS.
[2022-06-28] VITALS: BP 150/76
--- NOTE | 2022-06-28 00:20 | NUR ---
PT NOTED TO BE SLEEPY.
--- NOTE | 2022-06-28 03:30 | NUR ---
PT IS SLEEPING, NO SOB OR DISTRESS.
[2022-06-28 04:00] VITALS: BP 113/71
--- NOTE | 2022-06-28 07:25 | NUR ---
PT IS STABLE. ENDORSED TO DAY SHIFT NURSE FOR CONTINUITY OF CARE.
[2022-06-28 08:00] VITALS: BP 143/50
[2022-06-28] MEDS: SEVELAMER CARBONATE 800 MG TAB PO SCH ×3 (08:00→17:00)
[2022-06-28] MEDS: ALBUTEROL SULFATE/IPRATROPIU 3 ML SOL IH SCH ×2 (08:29→12:00)
[2022-06-28 09:27] LABS: ANION GAP 20.3 (8-16); CARBON DIOXIDE 23.6 mmol/L (21-32); CHLORIDE 94 mmol/L (98-107); GLUCOSE 112 mg/dL (74-106); POTASSIUM 3.9 mmol/L (3.5-5.1); SODIUM SERUM 134 mmol/L (136-145)
[2022-06-28 09:30] LABS: UREA NITROGEN, BLOOD 97 mg/dL (7-18)
[2022-06-28 09:31] LABS: CREATININE 5.4 mg/dL (0.6-1.3)
[2022-06-28 09:37] LABS: HEMATOCRIT 24.3 % (36-48); MEAN CORPUSCULAR HEMOGLOBIN 30 pg (27-31); MEAN CORPUSCULAR HGB CONC 33 g/dL (33-37); MEAN CORPUSCULAR VOLUME 90.9 fL (80-94); PLATELET COUNT (AUTO) 344 K/uL (140-450); RED BLOOD CELL COUNT(AUTO) 2.67 MIL/uL (4.20-5.40); RED CELL DISTRIBUTION WIDTH 15.7 % (11.6-13.7)
[2022-06-28] MEDS: guaiFENesin 600 MG TABER PO SCH ×2 (09:50→21:46)
[2022-06-28] MEDS: DOCUSATE SODIUM 100 MG GELCAP PO SCH ×2 (09:51→21:45)
[2022-06-28] MEDS: PANTOPRAZOLE 40 MG INJ VIAL IVP SCH (09:52)
[2022-06-28 10:18] LABS: LYMPHOCYTES % (MANUAL) 12 % (20-46); MONOCYTES % (MANUAL) 9 % (5-12); WHITE BLOOD COUNT (AUTO) 25.1 K/uL (4.8-10.8)
[2022-06-28 12:00] VITALS: BP 158/77
[2022-06-28] MEDS ORDERED: LIDOCAINE MPF 1% 10 ML ONE (13:34)
[2022-06-28] MEDS ORDERED: BUPIVACAINE-MPF/EPI 0.25% 10 ML VIAL INJ ONE (13:34)
--- NOTE | 2022-06-28 13:57 | NUR ---
PATIENT OUT OF ROOM - SURGERY WATERWAY TRAFFIC CHECKER TO ATTEMPT HHN THERAPY AT A LATER TIME
[2022-06-28] MEDS ORDERED: PROPOFOL 200 MG/20 ML VIAL IV ONE ×2 (14:03→14:15)
[2022-06-28] MEDS ORDERED: HYDROmorphone 1 MG/ML AMP IVP PRN (14:30)
[2022-06-28] MEDS ORDERED: hydrALAZINE 20 MG/ML VIAL IVP PRN (14:31)
--- NOTE | 2022-06-28 14:55 | NUR ---
RECEIVED PATIENT IN BED RESTING WELL. PATIENT REMINDED NOT TO EAT OR DRINK BEFORE HER DIALYSIS ACCESS PLACEMENT AND PATIENT VERBALIZED UNDER STANDING. PATIENT DENIENED ANY PAIN AT THIS TIME . WILL MONITOR.
--- NOTE | 2022-06-28 14:58 | NUR ---
PATIENT VIA BED AN HOUR AGO LEFT THE AREA VIA BED IN A STABLE CONDITION TO OR FOR DIALYSIS ACCESS PLACEMENT.
--- NOTE | 2022-06-28 15:29 | NUR ---
PATIENT JUST CAME BACK FROM OR WITH DIALYSIS CATHETER PLACED AT THE LEFT EJ. RADIOLOGIST CALLED TO SAY THAT THE CATHETER DON'T SEEM TO BE IN PLACE AND THAT A CT CHEST SHOULD BE ORDERED TO CONFIRM PLACEMENT OF THE HEMODIALYSIS CATHETER PLACED AND THAT THE PRIMARY CARE DOCTOR SHOULD BE NOTIFIED. Addendum: 06/28/22 at 1536 by Agency Nurse GEOVANNA Medina RN DR. VETO YI WAS THE RADIOLOGIST THAT CALLED AND SAID THAT THE NEWLY INSERTED DIALYSIS CATHETER LOOKED ABNORMAL ON THE CHEST X-RAY AND RECOMMENDS CT CHEST FOR THE PATIENT IN ORDER TO CONFIRM PROPER PLACEMENT OF THE DIALYSIS CATHETER.
[2022-06-28 16:00] VITALS: BP 153/82
--- NOTE | 2022-06-28 17:03 | NUR ---
PATIENT OUT OF ROOM - RADIOLOGY SHEET MANUFACTURING SUPERVISOR TO ENDORSE TO NOC SHIFT
--- NOTE | 2022-06-28 19:10 | NUR ---
PATIENT VIA BED, LEFT THE AREA IN A STABLE CONDITION TO RADIOLOGY DEPARTMENT FOR ORDERED CT CHEST TO VERIFY CATHETER PLACEMENT AND BACK . PATIENT MADE COMFORTABLE IN ROOM AND DINNER WAS SERVED PATIENT. RESULT OF THE CT STILL PENDING. INDUSTRIAL TRUCK OPERATOR STAFF TO FOLLOW UP. PATIENT RESTING WELL IN BED. NO CHANGE IN CONDITION.
[2022-06-28 20:00] VITALS: BP 153/82
--- NOTE | 2022-06-28 20:10 | NUR ---
RECEIVED PT ON BED, SITTING UP RELAX AND ABLE TO VERBALIZED NEEDS. DIALYSIS SITE PROCEDURE DONE TODAY ON LEFT IJ. PT IS ON STABLE CONDITION. CONTINUE MONITORING ON CONDITION. NO CHANGE OF CONDITION AT THIS TIME.
[2022-06-29] VITALS: BP 151/76
[2022-06-29 04:00] VITALS: BP 127/66
--- NOTE | 2022-06-29 05:30 | NUR ---
RENDERED PERSONAL HYGIENE AND CHANGE DIAPER. PT BM X 1 OF MODERATE AND SOFT STOOL. PT DENIES OF PAIN OR DISCOMFORT.
--- NOTE | 2022-06-29 06:38 | NUR ---
PT IS ON STABLE CONDITION. DIALYSIS SITE ON LEFT IJ INTACT, WRAPPED WITH CLEAN DRESSING AND DRY. PT TOLERATES WELL AND DENIES OF ANY PAIN OR DISCOMFORT. WILL ENDORSE TO DAY SHIFT NURSE FOR CONTINUITY OF CARE.
[2022-06-29 08:00] VITALS: BP 179/91
[2022-06-29] MEDS: SEVELAMER CARBONATE 800 MG TAB PO SCH ×3 (08:00→17:00)
[2022-06-29] MEDS: guaiFENesin 600 MG TABER PO SCH ×2 (09:28→21:53)
[2022-06-29] MEDS: DOCUSATE SODIUM 100 MG GELCAP PO SCH ×2 (09:28→21:53)
[2022-06-29] MEDS: PANTOPRAZOLE 40 MG INJ VIAL IVP SCH (09:28)
[2022-06-29] MEDS: EPOETIN ALFA-EPBX 4,000 UNITS/ML VIAL IV SCH (09:42)
[2022-06-29 12:00] VITALS: BP 141/79
[2022-06-29] MEDS ORDERED: VANCOMYCIN PER PHARMACY MC PRN (12:35)
[2022-06-29] MEDS ORDERED: ALTEPLASE 2 MG VIAL MC SCH (15:30)
--- NOTE | 2022-06-29 15:45 | NUR ---
HEMODIALYSIS STARTED AND LASTED FOR 45 MINUTES ONLY BECAUSE THE DIALYSIS ACCESS WAS NOT WORKING PER DIALYSIS NURSE.. brick and block mason AWARE AND ORDERED ACTVASE. sAME WAS GIVEN BY THE DIALYSIS NURSE. hEMODIALYSIS NURSE PULLED OUT 300CC OUT ONLY BEFORE THE ACTIVASE. tHE ACTIVASE IS EXPECTED TO BE IN THE CATHETER FOR ABOUT 1-3 HOURS. tHE DIALYSIS NURSE WILL HAVE TO COMS BACK LATER OR SOME OTHER PERSON FROM HER GROUP WILL BE HERE TO CHECK AND SEE IF THE CATHETER IS PATENT. PATIENT RESTING WELL IN BED. WILL CONTINUE TO MONITOR.
[2022-06-29 16:00] VITALS: BP 148/73
[2022-06-29] MEDS: ALBUTEROL SULFATE/IPRATROPIU 3 ML SOL IH SCH ×3 (17:47→18:00)
[2022-06-29] MEDS: FLUCONAZOLE 200 MG/NS PREMIX 100 ML IV SCH (18:23)
[2022-06-29 20:00] VITALS: BP 114/66
--- NOTE | 2022-06-29 20:04 | NUR ---
RECEIVED ENDORSEMENT FROM [facility] RN (REGISTRY), PATIENT WAS STABLE DURING SHIFT REPORT. PATIENT WAS NOTED AWAKE AND ORIENTED ON ROOM AIR. PATIENT WAS AWARE OF THE DIALYSIS HAVING DIFFICULTY WITH HER LEFT JUGULAR GUILLERMINA CATH. NURSING NOTED ON LEFT LATERAL FORE ARM IV WAS INFILTRATED NEW IV WILL BE STARTED LATER. HEAD OF WAS RAISED FOR RESPIRATORY PROMOTED BREATHING WITHOUT DISTRESS. NO S/S OF PAIN/DISCOMFORT AT THIS TIME. PATIENT LANGUAGE OF CHOICE IS ESTONIAN. PATIENT WAS KEPT CLEAN AND DRY AT THIS TIME. CALL LIGHT WITHIN REACH BED AT THE LOWEST LEVEL FOR SAFETY SIDE RAILS UP X 2 FOR ADJUSTMENTS AND SAFETY. [id number]
--- NOTE | 2022-06-29 20:36 | NUR ---
PATIENT'S CONDITION REMAIN THE SAME. REPORT WAS GIVEN TO THE ON COMING STAFF FOR A CONTINOUS EXPERT CARE.
--- NOTE | 2022-06-29 23:35 | NUR ---
PATIENT'S 02 SATURATION WAS SITTING AT 90% WHEN 2000 VITALS WERE TAKEN. PATIENT RECEIVED BREATHING TREATMENT WITH THE RESPIRATORY THERAPIST AT APPROXIMATELY 2130. NO SIGNS OF DISTRESS NOTED AT THIS TIME, WILL CONTINUE TO MONITOR.
--- NOTE | 2022-06-29 23:37 | NUR ---
PATIENT BEGAN DIALYSIS TREATMENT APPROXIMATELY 2134 AFTER BREATHING TREATMENT WAS COMPLETE. SCHEDULED MEDICATIONS OF COLACE AND MUCINEX WERE ADMINISTERED AND NO SIGNS OF DISTRESS WERE NOTED. DIALYSIS NURSE REQUESTED AN ORDER FOR 10,000 UNITS OF HEPARIN. CHARGE NURSE PLACED ORDER, MEDICATION WAS GIVEN. WILL CONTINUE TO MONITOR.
[2022-06-30] VITALS: BP 119/67
--- NOTE | 2022-06-30 00:33 | NUR ---
DIALYSIS WAS COMPLETED 2 LITERS OUTPUT. PATIENT WAS STABLE AND READY FOR SLEEP. NURSING WILL CONTINUE TO MONITOR. [email or web address]
--- NOTE | 2022-06-30 02:48 | NUR ---
PATIENT ASLEEP IN BED, SEMI FOWLERS POSITION. NO SIGNS OF DISTRESS OR SHORTNESS OF BREATH. WILL CONTINUE TO MONITOR.
[2022-06-30 04:00] VITALS: BP 114/67
--- NOTE | 2022-06-30 07:19 | NUR ---
ENDORSED PATIENT TO ALEC [place], PATIENT WAS STABLE DURING SHIFT REPORT. [id number] Addendum: 06/30/22 at 0724 by Dana Gonzáles LVN ENDORSED PATIENT TO LESLY [place], PATIENT WAS STABLE DURING SHIFT REPORT. [email or web address]
--- NOTE | 2022-06-30 07:20 | NUR ---
RECEIVED REPORT FROM ASSET PROTECTION MANAGER NURSE. PATIENT LYING DOWN IN BED WATCHING TV. NO DISTRESS NOTED. ON ROOM AIR, LEFT GUILLERMINA CATH IN PLACE. SILVA CATH IN PLACE, SKIN INTACT. IV SITE INTACT, PATENT, ON SALINE LOCK. REVIEWED PLAN OF CARE WITH PATIENT. VERBALIZED UNDERSTANDING. SAFETY MEASURES IN PLACE, CALL LIGHT WITHIN REACH. WILL CONTINUE TO MONITOR.
[2022-06-30 07:28] LABS: BASOPHILS % (AUTO) 0.1 % (0.0-2.0); EOSINOPHILS # (AUTO) 0.1 K/uL (0-0.4); EOSINOPHILS % (AUTO) 0.8 % (0.0-4.0); HEMATOCRIT 26.2 % (36-48); HEMOGLOBIN 8.5 g/dL (12.0-16.0); LYMPHOCYTES # (AUTO) 3.6 K/uL (2.5-16.5); MEAN CORPUSCULAR HEMOGLOBIN 30 pg (27-31); MEAN CORPUSCULAR HGB CONC 33 g/dL (33-37); MONOCYTES % (AUTO) 11.3 % (1.7-9.3); NEUTROPHILS # (AUTO) 12.2 K/uL (1.8-7.7); NEUTROPHILS % (AUTO) 67.8 % (42.2-75.2); PLATELET COUNT (AUTO) 273 K/uL (140-450); RED BLOOD CELL COUNT(AUTO) 2.82 MIL/uL (4.20-5.40); RED CELL DISTRIBUTION WIDTH 16.1 % (11.6-13.7)
[2022-06-30] MEDS: ALBUTEROL SULFATE/IPRATROPIU 3 ML SOL IH SCH ×3 (07:43→19:59)
[2022-06-30 08:00] VITALS: BP 128/70
[2022-06-30] MEDS: PANTOPRAZOLE 40 MG INJ VIAL IVP SCH (08:20)
[2022-06-30] MEDS: SEVELAMER CARBONATE 800 MG TAB PO SCH ×3 (08:20→17:00)
[2022-06-30] MEDS: DOCUSATE SODIUM 100 MG GELCAP PO SCH ×2 (08:21→20:27)
[2022-06-30] MEDS: guaiFENesin 600 MG TABER PO SCH ×2 (08:21→20:28)
--- NOTE | 2022-06-30 08:28 | NUR ---
SCHEDULED MEDICATIONS DUE GIVEN. WILL CONTINUE TO MONITOR.
[2022-06-30 09:13] LABS: ANION GAP 14.5 (8-16); CARBON DIOXIDE 27.1 mmol/L (21-32); CHLORIDE 102 mmol/L (98-107); CREATININE 2.7 mg/dL (0.6-1.3); GLUCOSE 82 mg/dL (74-106); POTASSIUM 3.6 mmol/L (3.5-5.1); SODIUM SERUM 140 mmol/L (136-145); UREA NITROGEN, BLOOD 56 mg/dL (7-18)
[2022-06-30 09:39] LABS: MAGNESIUM 2.1 mg/dL (1.8-2.4); PHOSPHORUS 3.8 mg/dL (2.5-4.9)
[2022-06-30] MEDS ORDERED: VANCOMYCIN 1,500 MG in DEXTROSE 5% 500 ML IV SCH (11:00)
[2022-06-30 12:00] VITALS: BP 126/69
--- NOTE | 2022-06-30 12:30 | NUR ---
SCHEDULED MEDICATIONS DUE GIVEN. WILL CONTINUE TO MONITOR.
[2022-06-30 16:00] VITALS: BP 102/57
--- NOTE | 2022-06-30 16:33 | NUR ---
06/30/22 RD FOLLOW UP COMPLETED PLEASE REFER TO NUTRITION ASSESSMENT UNDER CARE ACTIVITY FOR ESTIMATED NUTRITIONAL NEEDS. 1. CONTINUE RENAL DIET. 2. MONITOR PO INTAKE, LAB VALUES, AND GI. 3. RD TO FOLLOW-UP 3-5 DAYS, MODERATE RISK REVIEWED BY BRADEN COTTO RD
--- NOTE | 2022-06-30 17:30 | NUR ---
SCHEDULED MEDICATIONS DUE GIVEN. WILL CONTINUE TO MONITOR.
--- NOTE | 2022-06-30 19:12 | NUR ---
GAVE REPORT TO TOOL RADIAL DRILL PRESS SET UP OPERATOR NURSE FOR CONTINUITY OF CARE. PATIENT IN STABLE. CONDITION.
--- NOTE | 2022-06-30 19:19 | NUR ---
SCHEDULED MEDICATIONS DUE GIVEN. WILL CONTINUE TO MONITOR. Addendum: 06/30/22 at 1921 by Dionte Bettencourt RN DISREGARD NOTE ABOVE, ERROR. GAVE REPORT TO CABLE PLACER NURSE FOR CONTINUITY OF CARE.
--- NOTE | 2022-06-30 19:25 | NUR ---
RECEIVED PATIENT FROM MAYA FAGAN FOR CONTINUITY OF CARE. PT IS STABLE
[2022-06-30 20:00] VITALS: BP 122/70
[2022-07-01] VITALS: BP 110/65
--- NOTE | 2022-07-01 | NUR ---
PATIENT ASLEEP, NO S/SX OF DISTRESS NOTED
[2022-07-01 04:00] VITALS: BP 113/68
[2022-07-01 07:12] LABS: BASOPHILS % (AUTO) 0.2 % (0.0-2.0); EOSINOPHILS # (AUTO) 0.3 K/uL (0-0.4); EOSINOPHILS % (AUTO) 1.4 % (0.0-4.0); HEMATOCRIT 24.6 % (36-48); HEMOGLOBIN 7.9 g/dL (12.0-16.0); LYMPHOCYTES # (AUTO) 4.1 K/uL (2.5-16.5); LYMPHOCYTES % (AUTO) 21.7 % (20.5-51.1); MEAN CORPUSCULAR HEMOGLOBIN 30 pg (27-31); MEAN CORPUSCULAR HGB CONC 32 g/dL (33-37); MEAN CORPUSCULAR VOLUME 94.1 fL (80-94); MONOCYTES # (AUTO) 1.1 K/uL (0.8-1.0); MONOCYTES % (AUTO) 5.9 % (1.7-9.3); NEUTROPHILS # (AUTO) 13.5 K/uL (1.8-7.7); NEUTROPHILS % (AUTO) 70.8 % (42.2-75.2); PLATELET COUNT (AUTO) 250 K/uL (140-450); RED BLOOD CELL COUNT(AUTO) 2.62 MIL/uL (4.20-5.40); RED CELL DISTRIBUTION WIDTH 16.7 % (11.6-13.7)
[2022-07-01 07:17] LABS: ANION GAP 14.6 (8-16); CARBON DIOXIDE 27.2 mmol/L (21-32); CHLORIDE 99 mmol/L (98-107); CREATININE 3.6 mg/dL (0.6-1.3); GLUCOSE 107 mg/dL (74-106); POTASSIUM 3.8 mmol/L (3.5-5.1); SODIUM SERUM 137 mmol/L (136-145)
--- NOTE | 2022-07-01 07:20 | NUR ---
RECEIVED REPORT FROM SUPERVISOR CLAM BED NURSE GENIE FOR CONTINUITY OF CARE. PT STABLE AT THIS TIME.
[2022-07-01 07:21] LABS: PHOSPHORUS 5.8 mg/dL (2.5-4.9)
[2022-07-01 07:25] LABS: UREA NITROGEN, BLOOD 75 mg/dL (7-18)
[2022-07-01 08:00] VITALS: BP 99/65
[2022-07-01] MEDS: ALBUTEROL SULFATE/IPRATROPIU 3 ML SOL IH SCH ×3 (08:31→20:16)
[2022-07-01] MEDS: ATORVASTATIN 20 MG TAB PO SCH (09:00)
[2022-07-01] MEDS ORDERED: ATOR20TA40 PO (09:24)
[2022-07-01] MEDS ORDERED: Vancomycin Per Pharmacy MC (09:24)
[2022-07-01] MEDS: DOCUSATE SODIUM 100 MG GELCAP PO SCH ×2 (09:26→21:48)
[2022-07-01] MEDS: guaiFENesin 600 MG TABER PO SCH ×2 (09:26→21:49)
[2022-07-01] MEDS: SEVELAMER CARBONATE 800 MG TAB PO SCH ×3 (09:26→16:52)
[2022-07-01] MEDS: ECOTRIN 81 MG TABEC PO SCH (09:26)
[2022-07-01] MEDS: EPOETIN ALFA-EPBX 4,000 UNITS/ML VIAL IV SCH (09:26)
[2022-07-01] MEDS: PANTOPRAZOLE 40 MG INJ VIAL IVP SCH (09:26)
[2022-07-01 12:00] VITALS: BP 115/67
[2022-07-01 16:00] VITALS: BP 111/63
[2022-07-01] MEDS: ACETAMINOPHEN 325 MG TAB PO PRN (16:52)
--- NOTE | 2022-07-01 19:11 | NUR ---
ENDORSED PT TO DEVELOPING MACHINE OPERATOR NURSE GENIE FOR CONTINUITY OF CARE. PT STABLE AT THIS TIME.
--- NOTE | 2022-07-01 19:20 | NUR ---
RECEIVED PATIENT FROM AM NURSE FOR CONTINUITY OF CARE. PT IS STABLE
[2022-07-01 20:00] VITALS: BP 127/65
--- NOTE | 2022-07-02 01:21 | NUR ---
PATIENT IS ASLEEP, S/P DIALYSIS, NO DISTRESS NOTED
[2022-07-02 04:00] VITALS: BP 132/69
[2022-07-02] MEDS: ALBUTEROL SULFATE/IPRATROPIU 3 ML SOL IH SCH ×3 (07:00→20:41)
--- NOTE | 2022-07-02 07:00 | NUR ---
PT REFUSED MED NO DISTRESS NOTED. WILL CONTINUE TO MONITOR.
[2022-07-02 07:08] LABS: ANION GAP 13.3 (8-16); CARBON DIOXIDE 27.3 mmol/L (21-32); CHLORIDE 103 mmol/L (98-107); GLUCOSE 109 mg/dL (74-106); POTASSIUM 3.6 mmol/L (3.5-5.1); SODIUM SERUM 140 mmol/L (136-145); UREA NITROGEN, BLOOD 59 mg/dL (7-18)
[2022-07-02 07:22] LABS: BASOPHILS % (AUTO) 0.3 % (0.0-2.0); EOSINOPHILS # (AUTO) 0.3 K/uL (0-0.4); EOSINOPHILS % (AUTO) 1.9 % (0.0-4.0); HEMATOCRIT 23.2 % (36-48); HEMOGLOBIN 7.5 g/dL (12.0-16.0); LYMPHOCYTES # (AUTO) 3.2 K/uL (2.5-16.5); LYMPHOCYTES % (AUTO) 20.2 % (20.5-51.1); MEAN CORPUSCULAR HEMOGLOBIN 30 pg (27-31); MEAN CORPUSCULAR HGB CONC 32 g/dL (33-37); MEAN CORPUSCULAR VOLUME 93.8 fL (80-94); MONOCYTES # (AUTO) 0.8 K/uL (0.8-1.0); MONOCYTES % (AUTO) 5.3 % (1.7-9.3); NEUTROPHILS # (AUTO) 11.4 K/uL (1.8-7.7); NEUTROPHILS % (AUTO) 72.3 % (42.2-75.2); PLATELET COUNT (AUTO) 163 K/uL (140-450); RED BLOOD CELL COUNT(AUTO) 2.47 MIL/uL (4.20-5.40); RED CELL DISTRIBUTION WIDTH 16.7 % (11.6-13.7); WHITE BLOOD COUNT (AUTO) 15.8 K/uL (4.8-10.8)
--- NOTE | 2022-07-02 07:26 | NUR ---
RECEIVED REPORT FORM ROADMASTER NURSE GENIE FOR CONTINUITY OF CARE. PT AWAKE IN BED. RESPIRATIONS EVEN AND UNLABORED ON RA. NO DISTRESS NOTED. DIALYSIS SITE LIJ, INTACT. SILVA CATHETER, INTACT AND DRAINING WELL. IV SITE ON RFA, CLOGGED. REMOVED IV CATHETER TIP INTACT. WILL ATTEMPT TO INSERT A NEW IV LINE. CALL LIGHT WITHIN REACH. SAFETY PRECAUTIONS IN PLACE.
[2022-07-02 07:52] LABS: PHOSPHORUS 4.4 mg/dL (2.5-4.9)
[2022-07-02 08:00] VITALS: BP 135/70
--- NOTE | 2022-07-02 08:00 | NUR ---
Patient's Plan of Care was discussed and reviewed with JORGE: YOSEF
[2022-07-02] MEDS: ECOTRIN 81 MG TABEC PO SCH (09:37)
[2022-07-02] MEDS: DOCUSATE SODIUM 100 MG GELCAP PO SCH ×2 (09:37→20:16)
[2022-07-02] MEDS: SEVELAMER CARBONATE 800 MG TAB PO SCH ×3 (09:37→17:25)
[2022-07-02] MEDS: ATORVASTATIN 20 MG TAB PO SCH (09:38)
[2022-07-02] MEDS: guaiFENesin 600 MG TABER PO SCH ×2 (09:38→20:16)
--- NOTE | 2022-07-02 09:41 | NUR ---
SCHEDULED MEDICATIONS GIVEN. TOLERATING WELL.
[2022-07-02] MEDS: PANTOPRAZOLE 40 MG INJ VIAL IVP SCH (11:23)
--- NOTE | 2022-07-02 15:00 | NUR ---
DIALYSIS FOR TOMORROW CONFIRMED WITH DR. BOOTH, PER DIALYSIS NURSE JABARI.
[2022-07-02 16:00] VITALS: BP 116/65
--- NOTE | 2022-07-02 18:31 | NUR ---
ASSISTED FUR MACHINE OPERATOR FOR AFTERNOON CARE. PT TOLERATED WELL. PT REMAINED CLEAN AND DRY.
--- NOTE | 2022-07-02 19:10 | NUR ---
BEDSIDE REPORT GIVEN TO NIGHT NURSE ROBE FOR CONTINUITY OF CARE. REMAINS STABLE.
[2022-07-02 20:00] VITALS: BP 133/68
--- NOTE | 2022-07-03 00:14 | NUR ---
PATIENT IS ASLEEP. NO S/SX OF PAIN NOR DISCOMFORT. CALL LIGHT IN REACH.
--- NOTE | 2022-07-03 02:07 | NUR ---
PATIENT IS AWAKE, CURRENTLY ON HER PHONE. DENIES PAIN, PER PT SHE IS COMFORTABLE. CALL LIGHT IN REACH.
--- NOTE | 2022-07-03 02:12 | NUR ---
ROUNDING DONE. PT ASLEEP. BREATHING EVEN AND UNLABORED. CALL LIGHT IN REACH.
[2022-07-03 04:00] VITALS: BP 130/69
--- NOTE | 2022-07-03 04:45 | NUR ---
PATIENT HAD A MODERATE AMOUNT OF SOFT FORMED BROWN STOOL, PERINEAL CARE RENDERED. MADE COMFORTABLE IN BED. HEAD OF THE BED ELEVATED. CALL LIGHT PLACED WITHIN REACH.
--- NOTE | 2022-07-03 06:33 | NUR ---
PATIENT IS ASLEEP. ALL NEEDS ATTENDED TO. NO DISTRESS NOTED. SAFETY PRECAUTIONS MAINTIANED DURING THE SHIFT, CALL LIGHT REMAINS WITHIN REACH.
[2022-07-03 07:07] LABS: ANION GAP 13.5 (8-16); CARBON DIOXIDE 26.4 mmol/L (21-32); CHLORIDE 105 mmol/L (98-107); CREATININE 3.2 mg/dL (0.6-1.3); GLUCOSE 119 mg/dL (74-106); POTASSIUM 3.9 mmol/L (3.5-5.1); SODIUM SERUM 141 mmol/L (136-145)
[2022-07-03 07:10] LABS: MAGNESIUM 1.9 mg/dL (1.8-2.4); PHOSPHORUS 4.4 mg/dL (2.5-4.9)
[2022-07-03 07:12] LABS: BASOPHILS # (AUTO) 0.1 K/uL (0.00-0.22); BASOPHILS % (AUTO) 0.7 % (0.0-2.0); EOSINOPHILS # (AUTO) 0.3 K/uL (0-0.4); EOSINOPHILS % (AUTO) 1.8 % (0.0-4.0); HEMATOCRIT 24.3 % (36-48); HEMOGLOBIN 7.9 g/dL (12.0-16.0); LYMPHOCYTES # (AUTO) 3.1 K/uL (2.5-16.5); LYMPHOCYTES % (AUTO) 18.7 % (20.5-51.1); MEAN CORPUSCULAR HEMOGLOBIN 30 pg (27-31); MEAN CORPUSCULAR HGB CONC 33 g/dL (33-37); MONOCYTES # (AUTO) 0.8 K/uL (0.8-1.0); MONOCYTES % (AUTO) 4.6 % (1.7-9.3); NEUTROPHILS # (AUTO) 12.3 K/uL (1.8-7.7); NEUTROPHILS % (AUTO) 74.2 % (42.2-75.2); PLATELET COUNT (AUTO) 180 K/uL (140-450); RED BLOOD CELL COUNT(AUTO) 2.61 MIL/uL (4.20-5.40); RED CELL DISTRIBUTION WIDTH 16.5 % (11.6-13.7); WHITE BLOOD COUNT (AUTO) 16.6 K/uL (4.8-10.8)
--- NOTE | 2022-07-03 07:19 | NUR ---
RECEIVED REPORT FROM INTERACTIVE MEDIA SPECIALIST NURSE ROBE FOR CONTINUITY OF CARE. PT SLEEPING, EASILY AROUSABLE BY VERBAL STIMULI. RESPIRATIONS EVEN AND UNLABORED ON RA. LIJ, INTACT. SILVA CATHETER DRAINING TO GRAVITY. PT FOR HD TODAY. CALL LIGHT WITHIN REACH. SAFETY PRECAUTIONS IN PLACE.
[2022-07-03] MEDS: ALBUTEROL SULFATE/IPRATROPIU 3 ML SOL IH SCH ×3 (07:32→20:29)
[2022-07-03 07:44] LABS: UREA NITROGEN, BLOOD 65 mg/dL (7-18)
[2022-07-03 08:00] VITALS: BP 160/79
[2022-07-03] MEDS: EPOETIN ALFA-EPBX 4,000 UNITS/ML VIAL IV SCH (09:00)
[2022-07-03] MEDS: ECOTRIN 81 MG TABEC PO SCH (09:37)
[2022-07-03] MEDS: ATORVASTATIN 20 MG TAB PO SCH (09:38)
[2022-07-03] MEDS: DOCUSATE SODIUM 100 MG GELCAP PO SCH ×2 (09:38→20:42)
[2022-07-03] MEDS: guaiFENesin 600 MG TABER PO SCH ×2 (09:38→20:42)
[2022-07-03] MEDS: SEVELAMER CARBONATE 800 MG TAB PO SCH ×3 (09:40→17:01)
[2022-07-03] MEDS: PANTOPRAZOLE 40 MG INJ VIAL IVP SCH (09:44)
--- NOTE | 2022-07-03 09:45 | NUR ---
ADMINISTERED DUE MEDS. GEOVANNA CARTER ADMINISTERED IV MED. PT TOLERATED WELL.
--- NOTE | 2022-07-03 10:36 | NUR ---
STARTED HEMODIALYSIS. PT IN STABLE CONDITION.
--- NOTE | 2022-07-03 13:36 | NUR ---
HD DONE. 2.5L OUT PER DIALYSIS NURSE.
--- NOTE | 2022-07-03 13:50 | NUR ---
5000U HEPARIN GIVEN TO DIALYSIS NURSE FOR ADMINISTRATION. USED FOR HD. Addendum: 07/03/22 at 1703 by Tejas Christie LVN GIVEN TO DIALYSIS NURSE 1250.
--- NOTE | 2022-07-03 14:00 | NUR ---
PATIENT WITH LUNCH TRAY AT THIS TIME HEMODIALYSIS IN PROGRESS NO DISTRESS NOTED BOAT BUILDER AND REPAIRER TO ATTEMPT HHN THERAPY AT A LATER TIME
[2022-07-03 16:00] VITALS: BP 131/67
--- NOTE | 2022-07-03 17:03 | NUR ---
PT SITTING IN BED, WATCHING TV. ADMINISTERED DUE MED. PT NO C/O OF PAIN, SOB. PT STATED "I FEEL GOOD", WHEN ASKED HOW IS SHE FEELING.
--- NOTE | 2022-07-03 19:11 | NUR ---
ENDORSED PT TO WORKSITE WELLNESS PRACTITIONER NURSE ROBE FOR CONTINUITY OF CARE. ALL NEEDS MET THROUGHOUT SHIFT. PT IS IN STABLE CONDITION.
--- NOTE | 2022-07-03 19:15 | NUR ---
RECEIVED PATIENT IN BED AWAKE, ALERT AND ORIENTED. DENIES PAIN AT THIS TIME. NO ACUTE RESPIRATORY DISTRESS NOTED. SKIN WARM AND DRY TO TOUCH. BED IN THE LOWEST AND LOCKED POSITION FOR SAFETY, CALL LIGHT IN REACH, ENCOURAGED TO CALL IF ASSISTANCE IS NEEDED, PT VERBALLY ACKNOWLEDGED.
--- NOTE | 2022-07-04 00:04 | NUR ---
PATIENT WATCHING TV AT THIS TIME. PER PT SHE IS COMFORTABLE IN BED. CALL LIGHT REMAINED WITHIN REACH.
[2022-07-04 04:00] VITALS: BP 105/67
--- NOTE | 2022-07-04 04:09 | NUR ---
PATIENT IS AWAKE, WATCHING TV. OFFERED PT TO BE CLEANED, PT REFUSED, PER PT: "I AM CLEAN AND COMFORTABLE.". CALL LIGHT IN REACH, ENCOURAGED TO CALL IF ASSISTANCE IS NEEDED, PT VERBALLY AGREED.
--- NOTE | 2022-07-04 06:43 | NUR ---
PATIENT IS ASLEEP. ALL NEEDS ATTENDED TO. NO DISTRESS NOTED. SAFETY PRECAUTIONS MAINTAINED DURING THE SHIFT, CALL LIGHT REMAINS WITHIN REACH.
[2022-07-04] MEDS: ALBUTEROL SULFATE/IPRATROPIU 3 ML SOL IH SCH ×3 (07:20→18:00)
[2022-07-04 07:28] LABS: BASOPHILS # (AUTO) 0.1 K/uL (0.00-0.22); BASOPHILS % (AUTO) 0.9 % (0.0-2.0); EOSINOPHILS # (AUTO) 0.2 K/uL (0-0.4); EOSINOPHILS % (AUTO) 1.8 % (0.0-4.0); HEMATOCRIT 23.2 % (36-48); HEMOGLOBIN 7.5 g/dL (12.0-16.0); LYMPHOCYTES # (AUTO) 2.8 K/uL (2.5-16.5); LYMPHOCYTES % (AUTO) 20.6 % (20.5-51.1); MEAN CORPUSCULAR HEMOGLOBIN 30 pg (27-31); MEAN CORPUSCULAR HGB CONC 32 g/dL (33-37); MEAN CORPUSCULAR VOLUME 94.7 fL (80-94); MONOCYTES # (AUTO) 0.9 K/uL (0.8-1.0); MONOCYTES % (AUTO) 6.7 % (1.7-9.3); NEUTROPHILS # (AUTO) 9.4 K/uL (1.8-7.7); PLATELET COUNT (AUTO) 162 K/uL (140-450); RED BLOOD CELL COUNT(AUTO) 2.45 MIL/uL (4.20-5.40); RED CELL DISTRIBUTION WIDTH 16.8 % (11.6-13.7); WHITE BLOOD COUNT (AUTO) 13.4 K/uL (4.8-10.8)
[2022-07-04 07:29] LABS: ANION GAP 12.1 (8-16); CARBON DIOXIDE 29.7 mmol/L (21-32); CHLORIDE 103 mmol/L (98-107); CREATININE 2.9 mg/dL (0.6-1.3); GLUCOSE 115 mg/dL (74-106); POTASSIUM 3.8 mmol/L (3.5-5.1); SODIUM SERUM 141 mmol/L (136-145); UREA NITROGEN, BLOOD 47 mg/dL (7-18)
[2022-07-04 07:35] LABS: MAGNESIUM 1.8 mg/dL (1.8-2.4); PHOSPHORUS 4.1 mg/dL (2.5-4.9)
[2022-07-04 08:00] VITALS: BP 131/82
[2022-07-04] MEDS: PANTOPRAZOLE 40 MG INJ VIAL IVP SCH (09:01)
[2022-07-04] MEDS: ECOTRIN 81 MG TABEC PO SCH (09:01)
[2022-07-04] MEDS: guaiFENesin 600 MG TABER PO SCH ×2 (09:01→20:47)
[2022-07-04] MEDS: SEVELAMER CARBONATE 800 MG TAB PO SCH ×3 (09:01→17:04)
[2022-07-04] MEDS: DOCUSATE SODIUM 100 MG GELCAP PO SCH ×2 (09:01→20:47)
[2022-07-04] MEDS: ATORVASTATIN 20 MG TAB PO SCH (09:02)
[2022-07-04] MEDS ORDERED: VANCOMYCIN 1,500 MG in DEXTROSE 5% 500 ML IV SCH (14:00)
[2022-07-04 16:00] VITALS: BP 115/70
--- NOTE | 2022-07-04 16:06 | NUR ---
07/04/22 RD FOLLOW UP COMPLETED PLEASE REFER TO NUTRITION ASSESSMENT UNDER CARE ACTIVITY FOR ESTIMATED NUTRITIONAL NEEDS. 1. CONTINUE RENAL DIET TOLERATED 2. RD WILL CONTINUE TO MONITOR PO INTAKE, GI SYMPTOMS, AND NUTRITION RELATED LAB VALUES 3. RD TO FOLLOW-UP 7 DAYS, LOW RISK D/T PT TOLERATING CURRENT DIET AND ABOUT 80% PO INTAKE REVIEWED BY BRADEN COTTO RD
--- NOTE | 2022-07-04 19:18 | NUR ---
RECEIVED REPORT FROM DAY SHIFT NURSE THOR FOR CONTINUITY OF CARE. PT AWAKE, SITTING IN BED, WATCHING TV. RESPIRATIONS EVEN AND UNLABORED ON RA. LIJ, INTACT. SILVA CATHETER DRAINING TO GRAVITY. CALL LIGHT WITHIN REACH. SAFETY PRECAUTIONS IN PLACE. Addendum: 07/05/22 at 0219 by Tejas Christie LVN RECEIVED PT WITH NO IV SITE. ENDORSED BY AM NURSE THAT AWARE, NO NEED FOR PICC OR MIDLINE PER DR DUNN.
[2022-07-04] MEDS ORDERED: ALBUTEROL 0.083% 2.5 MG/3 ML NEBU INH ONE (19:33)
[2022-07-04] MEDS ORDERED: IPRATROPIUM 0.02% 0.5 MG/2.5 ML NEBU INH ONE (19:33)
[2022-07-04 20:00] VITALS: BP 114/72
--- NOTE | 2022-07-04 20:49 | NUR ---
ADMINISTERED DUE MEDS. PT TOLERATED WELL.
[2022-07-04] MEDS ORDERED: ALBUTEROL 0.083% 2.5 MG/3 ML NEBU INH PRN (21:00)
--- NOTE | 2022-07-04 21:48 | NUR ---
PER DR GONZALEZ, PLACEMENT OF TUNNELED HD PERMACATH MOST LIKELY ON , 07/06. DR SHIRLEY ORDERED TO RESUME RENAL DIET.
[2022-07-04] MEDS: ACETAMINOPHEN 325 MG TAB PO PRN (22:23)
[2022-07-05 04:00] VITALS: BP 142/83
--- NOTE | 2022-07-05 04:48 | NUR ---
PT SLEEPING. NO DISTRESS NOTED. SAFETY PRECAUTIONS IN PLACE.
[2022-07-05] MEDS ORDERED: ALBUTEROL 0.083% 2.5 MG/3 ML NEBU INH SCH (07:00)
--- NOTE | 2022-07-05 07:30 | NUR ---
ENDORSED PT TO DAY SHIFT NURSE GERARDO FOR CONTINUITY OF CARE. ALL NEEDS MET THROUGHOUT SHIFT. PT IS IN STABLE CONDITION.
[2022-07-05] MEDS: IPRATROPIUM 0.02% 0.5 MG/2.5 ML NEBU INH SCH ×3 (07:49→18:53)
[2022-07-05] MEDS: ALBUTEROL 0.083% 2.5 MG/3 ML NEBU INH SCH ×3 (07:51→18:53)
[2022-07-05 08:00] VITALS: BP 146/67
--- NOTE | 2022-07-05 08:00 | NUR ---
Patient's Plan of Care was discussed and reviewed with JORGE: YOSEF
[2022-07-05] MEDS: DOCUSATE SODIUM 100 MG GELCAP PO SCH ×2 (09:14→21:09)
[2022-07-05] MEDS: ECOTRIN 81 MG TABEC PO SCH (09:14)
[2022-07-05] MEDS: ATORVASTATIN 20 MG TAB PO SCH (09:15)
[2022-07-05] MEDS: SEVELAMER CARBONATE 800 MG TAB PO SCH ×3 (09:15→19:20)
[2022-07-05] MEDS: guaiFENesin 600 MG TABER PO SCH ×2 (09:16→21:09)
[2022-07-05 09:49] LABS: BASOPHILS # (AUTO) 0.1 K/uL (0.00-0.22); BASOPHILS % (AUTO) 0.6 % (0.0-2.0); HEMOGLOBIN 7.5 g/dL (12.0-16.0); LYMPHOCYTES # (AUTO) 3.7 K/uL (2.5-16.5); MEAN CORPUSCULAR HEMOGLOBIN 30 pg (27-31); MEAN CORPUSCULAR HGB CONC 32 g/dL (33-37); PLATELET COUNT (AUTO) 191 K/uL (140-450); RED CELL DISTRIBUTION WIDTH 16.8 % (11.6-13.7)
[2022-07-05 09:58] LABS: EOSINOPHILS # (AUTO) 0.2 K/uL (0-0.4); EOSINOPHILS % (AUTO) 1.7 % (0.0-4.0); HEMATOCRIT 23.6 % (36-48); LYMPHOCYTES % (AUTO) 26.3 % (20.5-51.1); MEAN CORPUSCULAR VOLUME 94.9 fL (80-94); MONOCYTES # (AUTO) 0.8 K/uL (0.8-1.0); MONOCYTES % (AUTO) 5.9 % (1.7-9.3); NEUTROPHILS # (AUTO) 9.2 K/uL (1.8-7.7); NEUTROPHILS % (AUTO) 65.5 % (42.2-75.2); RED BLOOD CELL COUNT(AUTO) 2.49 MIL/uL (4.20-5.40); WHITE BLOOD COUNT (AUTO) 14.1 K/uL (4.8-10.8)
[2022-07-05 10:05] LABS: ANION GAP 13.2 (8-16); CARBON DIOXIDE 28.5 mmol/L (21-32); CHLORIDE 104 mmol/L (98-107); CREATININE 3.7 mg/dL (0.6-1.3); GLUCOSE 139 mg/dL (74-106); POTASSIUM 3.7 mmol/L (3.5-5.1); SODIUM SERUM 142 mmol/L (136-145)
[2022-07-05 10:10] LABS: UREA NITROGEN, BLOOD 61 mg/dL (7-18)
[2022-07-05 16:00] VITALS: BP 98/53
--- NOTE | 2022-07-05 19:30 | NUR ---
RECEIVED REPORT FROM DAY SHIFT NURSE GERARDO FOR CONTINUITY OF CARE. PT IN BED, WATCHING TV WITH NO DISTRESS NOTED. INITIAL ASSESSMENT DONE. PT NO IV LINE, MD AWARE. LIJ INTACT. SILVA CATHETER IN PLACE DRAINING TO GRAVITY. DIALYSIS SCHEDULED IVON. PLACEMENT OF TUNNELED HD PERMACATH IVON. PT NPO AFTER MD. PT AWARE. NPO SIGN IN PLACE. CALL LIGHT WITHIN REACH. SAFETY PRECAUTIONS IN PLACE.
[2022-07-05 20:00] VITALS: BP 109/54
--- NOTE | 2022-07-05 21:09 | NUR ---
ADMINISTERED DUE MEDS. PT TOLERATED WELL.
--- NOTE | 2022-07-05 22:56 | NUR ---
CONSENT FORM FOR BLOOD TRANSFUSION NOT SIGNED. DR GONZALEZ MADE AWARE. AWAITING FOR RESPONSE.
[2022-07-06] MEDS: ACETAMINOPHEN 325 MG TAB PO PRN ×2 (01:20→23:32)
--- NOTE | 2022-07-06 03:50 | NUR ---
DID ROUNDS. PT SLEEPING. BREATHING EVEN AND UNLABORED. NO DISTRESS NOTED. SAFETY PRECAUTIONS IN PLACE.
[2022-07-06 04:00] VITALS: BP 112/60
[2022-07-06 05:40] LABS: BASOPHILS # (AUTO) 0.1 K/uL (0.00-0.22); BASOPHILS % (AUTO) 0.9 % (0.0-2.0); EOSINOPHILS # (AUTO) 0.3 K/uL (0-0.4); EOSINOPHILS % (AUTO) 2.7 % (0.0-4.0); HEMATOCRIT 21.1 % (36-48); LYMPHOCYTES # (AUTO) 2.6 K/uL (2.5-16.5); LYMPHOCYTES % (AUTO) 22.4 % (20.5-51.1); MEAN CORPUSCULAR HEMOGLOBIN 30 pg (27-31); MEAN CORPUSCULAR HGB CONC 33 g/dL (33-37); MEAN CORPUSCULAR VOLUME 92.4 fL (80-94); MONOCYTES # (AUTO) 0.7 K/uL (0.8-1.0); MONOCYTES % (AUTO) 6.3 % (1.7-9.3); NEUTROPHILS # (AUTO) 7.9 K/uL (1.8-7.7); NEUTROPHILS % (AUTO) 67.7 % (42.2-75.2); PLATELET COUNT (AUTO) 193 K/uL (140-450); RED BLOOD CELL COUNT(AUTO) 2.28 MIL/uL (4.20-5.40); RED CELL DISTRIBUTION WIDTH 16.6 % (11.6-13.7); WHITE BLOOD COUNT (AUTO) 11.7 K/uL (4.8-10.8)
[2022-07-06 05:49] LABS: ANION GAP 13.6 (8-16); CARBON DIOXIDE 27.3 mmol/L (21-32); CHLORIDE 103 mmol/L (98-107); GLUCOSE 115 mg/dL (74-106); POTASSIUM 3.9 mmol/L (3.5-5.1); SODIUM SERUM 140 mmol/L (136-145)
--- NOTE | 2022-07-06 06:10 | NUR ---
RECEIVED CRITICAL LAB VALUE FROM LAB. HEMOGLOBIN 6.9; HEMATOCRIT 21.1. DR GONZALEZ MADE AWARE, PROCEDURE WAS CANCELLED.
[2022-07-06 06:12] LABS: HEMOGLOBIN 6.9 g/dL (12.0-16.0)
--- NOTE | 2022-07-06 06:30 | NUR ---
INFORMED DR SHIRLEY OF THE CRITICAL LAB VALUE. RECEIVED ORDER TO TRANSFUSE 1 PRBC.
[2022-07-06 06:50] LABS: UREA NITROGEN, BLOOD 70 mg/dL (7-18)
--- NOTE | 2022-07-06 06:52 | NUR ---
RECEIVED CRITICAL LAB. BUN 70. FOR HD DIALYSIS TODAY, FOLLOWED UP TIME OF HD WITH DIALYSIS NURSE, AWAITING FOR RESPONSE. AWARE.
--- NOTE | 2022-07-06 07:26 | NUR ---
ENDORSED PT TO DAY SHIFT NURSE MAURI FOR CONTINUITY OF CARE. ALL NEEDS MET THROUGHOUT SHIFT. PT IS IN STABLE CONDITION.
[2022-07-06] MEDS: SEVELAMER CARBONATE 800 MG TAB PO SCH ×3 (08:00→18:34)
[2022-07-06] MEDS: IPRATROPIUM 0.02% 0.5 MG/2.5 ML NEBU INH SCH ×3 (08:15→19:00)
[2022-07-06] MEDS: ALBUTEROL 0.083% 2.5 MG/3 ML NEBU INH SCH ×3 (08:16→19:00)
[2022-07-06 08:27] VITALS: BP 108/69
[2022-07-06] MEDS: DOCUSATE SODIUM 100 MG GELCAP PO SCH ×2 (09:00→21:52)
[2022-07-06] MEDS: guaiFENesin 600 MG TABER PO SCH ×2 (09:00→21:52)
[2022-07-06] MEDS: PANTOPRAZOLE 40 MG TABEC PO SCH (09:00)
[2022-07-06] MEDS: ATORVASTATIN 20 MG TAB PO SCH (09:00)
[2022-07-06 11:30] VITALS: BP 134/74
[2022-07-06 16:00] VITALS: BP 122/66
[2022-07-06] MEDS: EPOETIN ALFA-EPBX 4,000 UNITS/ML VIAL IV SCH (18:34)
[2022-07-06 22:54] LABS: HEMATOCRIT 25.5 % (36-48); HEMOGLOBIN 8.3 g/dL (12.0-16.0)
--- NOTE | 2022-07-07 01:08 | NUR ---
PATIENT STABLE SLEEPING AT THIS TIME VITALS SIGNS IN NORMAL LIMITS NOT PAIN AT THIS TIME
--- NOTE | 2022-07-07 06:27 | NUR ---
PATIENT STABLE NOT COMPLAINING OF PAIN AT THIS TIME VITAL SIGNS IN NORMAL LIMITS
[2022-07-07] MEDS: IPRATROPIUM 0.02% 0.5 MG/2.5 ML NEBU INH SCH ×3 (07:06→19:30)
[2022-07-07] MEDS: ALBUTEROL 0.083% 2.5 MG/3 ML NEBU INH SCH ×3 (07:06→19:30)
[2022-07-07 07:22] LABS: ANION GAP 13.7 (8-16); CARBON DIOXIDE 26.3 mmol/L (21-32); CHLORIDE 105 mmol/L (98-107); CREATININE 3.4 mg/dL (0.6-1.3); GLUCOSE 107 mg/dL (74-106); SODIUM SERUM 141 mmol/L (136-145); UREA NITROGEN, BLOOD 59 mg/dL (7-18)
[2022-07-07 07:32] LABS: BASOPHILS # (AUTO) 0.1 K/uL (0.00-0.22); BASOPHILS % (AUTO) 0.7 % (0.0-2.0); EOSINOPHILS # (AUTO) 0.3 K/uL (0-0.4); EOSINOPHILS % (AUTO) 2.3 % (0.0-4.0); HEMATOCRIT 25.1 % (36-48); HEMOGLOBIN 8.1 g/dL (12.0-16.0); LYMPHOCYTES # (AUTO) 2.4 K/uL (2.5-16.5); LYMPHOCYTES % (AUTO) 21.2 % (20.5-51.1); MEAN CORPUSCULAR HEMOGLOBIN 30 pg (27-31); MEAN CORPUSCULAR HGB CONC 32 g/dL (33-37); MEAN CORPUSCULAR VOLUME 93.8 fL (80-94); MONOCYTES # (AUTO) 0.9 K/uL (0.8-1.0); MONOCYTES % (AUTO) 7.9 % (1.7-9.3); NEUTROPHILS # (AUTO) 7.6 K/uL (1.8-7.7); NEUTROPHILS % (AUTO) 67.9 % (42.2-75.2); PLATELET COUNT (AUTO) 187 K/uL (140-450); RED BLOOD CELL COUNT(AUTO) 2.68 MIL/uL (4.20-5.40); RED CELL DISTRIBUTION WIDTH 16.2 % (11.6-13.7); WHITE BLOOD COUNT (AUTO) 11.2 K/uL (4.8-10.8)
--- NOTE | 2022-07-07 07:32 | NUR ---
NO ENDORSEMENT REPORT GIVEN BY REGISTRY NURSE, REE. PT IN BED RESTING AT THIS TIME. RESPIRATIONS ARE EVEN AND UNLABORED. NO SIGNS OF DISTRESS NOTED. NO COMPLAINTS OF PAIN OR DISCOMFORT AT THIS TIME. CALL LIGHT WITHIN REACH. ALL SAFETY MEASURES IN PLACE. WILL CONTINUE TO MONITOR.
[2022-07-07 08:00] VITALS: BP 114/65
[2022-07-07] MEDS: SEVELAMER CARBONATE 800 MG TAB PO SCH ×3 (08:47→17:12)
[2022-07-07] MEDS: PANTOPRAZOLE 40 MG TABEC PO SCH (09:06)
[2022-07-07] MEDS: DOCUSATE SODIUM 100 MG GELCAP PO SCH ×2 (09:06→20:39)
[2022-07-07] MEDS: guaiFENesin 600 MG TABER PO SCH ×2 (09:07→20:39)
[2022-07-07] MEDS: ATORVASTATIN 20 MG TAB PO SCH (09:07)
[2022-07-07] MEDS ORDERED: VANCOMYCIN 1,500 MG in NACL 0.9% 500 ML IV SCH (10:00)
--- NOTE | 2022-07-07 10:19 | NUR ---
DR. GONZALEZ CALLED, PER , WILL DO TUNNELED CATHETER PLACEMENT TOMORROW. OKAY TO FEED TODAY. NPO MIDNIGHT
--- NOTE | 2022-07-07 11:26 | NUR ---
SPOKE WITH PT SISTER/POA. GAVE UPDATE. ANSWERED ALL QUESTIONS.
--- NOTE | 2022-07-07 14:56 | NUR ---
ASSISTED WITH CHANGING AND REPOSITIONING PT. PT TOLERATED WELL.
[2022-07-07 16:00] VITALS: BP 119/68
--- NOTE | 2022-07-07 16:39 | NUR ---
WENT TO DO ROUNDS ON PT. PT SLEEPING AT THIS TIME. RESPIRATIONS ARE EVEN AND UNLABORED ON ROOM AIR. NO SIGNS OF DISTRESS NOTED.
--- NOTE | 2022-07-07 19:08 | NUR ---
ENDORSED PT TO REGISTERED NURSE BEHAVIORAL HEALTH NURSE, RONNY, FOR CONTINUITY OF CARE. PT IS STABLE.
--- NOTE | 2022-07-07 19:30 | NUR ---
RECEIVED REPORT FROM DAY SHIFT NURSE MILDRED FOR CONTINUITY OF CARE. PATIENT IS A&O X3. PATIENT IS ON ROOM AIR, BREATHING IS NORMAL WITH SYMMETRICAL RISE AND FALL OF CHEST. IV IS A L HAND 22G; NO FLUIDS RUNNING (SALINE LOCKED). PATIENT HAS L GUILLERMINA CATH FOR DIALYSIS; WAS INFORMED BY DAY SHIFT NURSE PATIENT HAD DIALYSIS YESTERDAY BUT DIALYSIS WAS NOT COMPLETED DUE TO PATIENT HAVING ANXIETY. PATIENT IS SCHEDULED TO HAVE SURGERY TO REPLACE GUILLERMINA CATH TOMORROW. PATIENT IS AWAKE IN BED, LYING SEMI-FOWLERS POSITION. WILL CONTINUE TO OBSERVE PATIENT.
[2022-07-07 20:00] VITALS: BP 113/50
--- NOTE | 2022-07-08 | NUR ---
DIALYSIS NURSE JABARI CALLED AT 2346 TO INQUIRE ABOUT PATIENT HAVING DIALYSIS TOMORROW AND WHEN THEIR SURGERY WAS. LOOKED UP THE INFO AND INFORMED DIALYSIS NURSE THAT SURGERY WAS SCHEDULED FOR 1345. DIALYSIS NURSE ASKED ABOUT PREVIOUS DIALYSIS; I INFORMED NURSE THAT I WAS TOLD THAT DIALYSIS WAS STARTED ON THE PREVIOUS DAY, BUT NOT COMPLETED BECAUSE PATIENT STARTED HAVING ANXIETY. NURSE BARBOZA SAID SHE WOULD CALL BACK IN THE MORNING TO SEE IF DIALYSIS CAN BE DONE GIVEN PATIENT'S PROCEDURE.
[2022-07-08 04:00] VITALS: BP 142/71
[2022-07-08 06:46] LABS: ANION GAP 13.9 (8-16); CARBON DIOXIDE 25.1 mmol/L (21-32); CHLORIDE 106 mmol/L (98-107); CREATININE 3.4 mg/dL (0.6-1.3); GLUCOSE 105 mg/dL (74-106); SODIUM SERUM 141 mmol/L (136-145)
[2022-07-08 07:17] LABS: UREA NITROGEN, BLOOD 66 mg/dL (7-18)
[2022-07-08 07:19] LABS: BASOPHILS # (AUTO) 0.1 K/uL (0.00-0.22); BASOPHILS % (AUTO) 0.7 % (0.0-2.0); EOSINOPHILS # (AUTO) 0.3 K/uL (0-0.4); EOSINOPHILS % (AUTO) 2.8 % (0.0-4.0); HEMATOCRIT 24.9 % (36-48); HEMOGLOBIN 8.2 g/dL (12.0-16.0); LYMPHOCYTES # (AUTO) 1.9 K/uL (2.5-16.5); LYMPHOCYTES % (AUTO) 18.2 % (20.5-51.1); MEAN CORPUSCULAR HEMOGLOBIN 31 pg (27-31); MEAN CORPUSCULAR HGB CONC 33 g/dL (33-37); MEAN CORPUSCULAR VOLUME 94.2 fL (80-94); MONOCYTES # (AUTO) 0.9 K/uL (0.8-1.0); NEUTROPHILS # (AUTO) 7.2 K/uL (1.8-7.7); NEUTROPHILS % (AUTO) 69.3 % (42.2-75.2); PLATELET COUNT (AUTO) 187 K/uL (140-450); RED BLOOD CELL COUNT(AUTO) 2.65 MIL/uL (4.20-5.40); RED CELL DISTRIBUTION WIDTH 15.9 % (11.6-13.7); WHITE BLOOD COUNT (AUTO) 10.4 K/uL (4.8-10.8)
--- NOTE | 2022-07-08 07:20 | NUR ---
RECEIVED BEDSIDE REPORT BY RONNY FOR CONTINUITY OF CARE. INITIAL ASSESSMENT DONE. IVF SITE INTACT. NO C/O PAIN. CALL LIGHT KEPT WITHIN REACH.
[2022-07-08] MEDS: ALBUTEROL 0.083% 2.5 MG/3 ML NEBU INH SCH ×2 (07:39→13:00)
[2022-07-08] MEDS: IPRATROPIUM 0.02% 0.5 MG/2.5 ML NEBU INH SCH ×2 (07:39→13:00)
--- NOTE | 2022-07-08 07:41 | NUR ---
ENDORSED TO DAY SHIFT NURSE JESÚS FOR CONTINUITY OF CARE. PATIENT IS STABLE.
--- NOTE | 2022-07-08 07:44 | NUR ---
RECEIVED CRITICAL LAB VALUE FROM LAB SPOKE TO KACIE. BUN 66. DR. SHIRLEY NOTIFIED WITH NO NEW ORDER.
[2022-07-08 08:00] VITALS: BP 144/62
[2022-07-08] MEDS: SEVELAMER CARBONATE 800 MG TAB PO SCH ×2 (08:00→14:41)
--- NOTE | 2022-07-08 08:00 | NUR ---
REVIEWED AND DISCUSSED PT PLAN OF CARE WITH JORGE ESPINOSA. PT IN STABLE CONDITION.
[2022-07-08] MEDS: EPOETIN ALFA-EPBX 4,000 UNITS/ML VIAL IV SCH (09:00)
[2022-07-08] MEDS: ATORVASTATIN 20 MG TAB PO SCH (09:00)
[2022-07-08] MEDS: guaiFENesin 600 MG TABER PO SCH (09:00)
[2022-07-08] MEDS: PANTOPRAZOLE 40 MG TABEC PO SCH (09:00)
[2022-07-08] MEDS: DOCUSATE SODIUM 100 MG GELCAP PO SCH (09:00)
--- NOTE | 2022-07-08 09:10 | NUR ---
PT IS SCHEDULED FOR RETACRIT 4000 UNIT, DR. BOOTH NOTIFIED, PT CAN RECEIVED 10,00 WEEKLY. PT MADE AWARE.
--- NOTE | 2022-07-08 10:38 | NUR ---
DR. GONZALEZ IN TO SEE PT, PER DR. GONZALEZ, PERMACATH PLACEMENT WILL PROCEED FOR TODAY AT 1045. PT TO BE KEPT NPO.
[2022-07-08] MEDS ORDERED: PROPOFOL 200 MG/20 ML VIAL IV ONE ×3 (10:57→11:03)
[2022-07-08] MEDS ORDERED: BUPIVACAINE-MPF 0.25% 30 ML VIAL INJ ONE (11:06)
[2022-07-08] MEDS ORDERED: LIDOCAINE 1% 500 MG/50 ML VIAL ONE (11:06)
--- NOTE | 2022-07-08 11:37 | NUR ---
DC PLANNING: PATIENT SCHEDULED TO HAVE TUNNEL CATH TODAY AFTER HEMODIALYSIS PATIENT WILL BE GOING TO [facility] ROOM 20 # TO GIVE REPORT [phone] WILL ARRANGED TRANSPORT WITH [facility] TRANSPORT. CM TO FOLLOW
[2022-07-08] MEDS ORDERED: HYDROmorphone 1 MG/ML AMP IVP PRN (12:05)
[2022-07-08] MEDS ORDERED: MORPHINE SULFATE 4 MG/ML SYR IV PRN (12:05)
[2022-07-08] MEDS ORDERED: HYDROcodone/APAP 5/325 MG 1 TAB TAB PO PRN (12:05)
[2022-07-08] MEDS ORDERED: ONDANSETRON 4 MG/2 ML VIAL IV PRN (12:05)
[2022-07-08] MEDS ORDERED: MORPHINE SULFATE 2 MG/ML SYR IVP PRN (12:05)
--- NOTE | 2022-07-08 13:00 | NUR ---
PT RETURN FROM SURGERY. S/P LT IJ TUNNELED HD PERMACATHETER IN PLACE. WITH MINIMAL BLEEDING NOTED. DRESSING INTACT AND PATENT. NO C/O PAIN OR DISCOMFORT. Addendum: 07/08/22 at 1939 by JESÚS ULLOA LVN ADDENDUM: PER OR NURSE, XRAY DONE, DIALYSIS CATHETER READY TO BE USE.
--- NOTE | 2022-07-08 13:50 | NUR ---
PT REFUSED MED, VITALS 98% 87HR, PT WAS IN NO SIGNS OF RESP. DISTRESS
--- NOTE | 2022-07-08 14:00 | NUR ---
PT REFUSED DIALYSIS PER DIALYSIS NURSE. EXPLAINED RISK AND BENEFITS BUT STILL REFUSED. DR. SHETTY NOTIFIED AND STATED TO NOTIFIED DR. BOOTH IF CLEARED FOR D/C, AWAITING FOR RESPONSE.
--- NOTE | 2022-07-08 15:50 | NUR ---
DC PLANNING SW OUTREACHED TO CALL THE CAR, TO ARRANGE TRANSPORTATION BACK TO [facility]. SPOKE WITH SYBIL W/ CALL THE CAR, TRANSPORTATION ARRANGED FOR 8PM P/UP. CONFIRMATION # [id number]. SW ENDORSED TO PT NURSE AND REQUESTED FOR NURSE TO CALL AND CANCEL IF DC ORDER WAS CANCELLED. NURSE VERBALIZED UNDERSTANDING.
--- NOTE | 2022-07-08 16:17 | NUR ---
RECEIVED CALLED BACK BY DR. BOOTH, CLEARED PATIENT TO BE DISCHARGED BACK TO SNF. DR. SHIRLEY NOTIFIED AND AGREED. RP SISTER MADE AWARE.
[2022-07-08 17:16] VITALS: BP 142/68
--- NOTE | 2022-07-08 17:16 | NUR ---
RECEIVED NEW ORDER BY DR. SHIRLEY TO D/C F/C.
--- NOTE | 2022-07-08 17:20 | NUR ---
CALLED [facility] REPORT WAS GIVEN SPOKE TO RONALDO AUSTIN.
--- NOTE | 2022-07-08 18:45 | NUR ---
PT LEFT DISCHARGE BACK TO [facility]. TRANSPORTED BY NON MEDICAL TRANSPORT, ACCOMPANIED BY 2 MALE TRANSPORTER PER KRAIG. ID BAND AND IV REMOVED. DIALYSIS CATHETER INTACT WITH MINIMAL BLEEDING. NO C/O PAIN. DISCHARGE PAPERWORKS GIVEN. ALL PERSONAL BELONGINGS WAS TAKEN. REMAINS STABLE. Addendum: 07/08/22 at 1853 by JESÚS ULLOA LVN ADDENDUM: F/C D/C. TOLERATING WELL.
== END 2022-07-08 18:45 | DRG 314 ==
LOC: MED 07:24 → MTU 11:47 → MIC 06-22 20:08 → MTU 06-23 19:06
PROC: 5A1D70Z Performance of Urinary Filtration, Intermittent, Less than 6 Hours Per Day (ICD-10-PCS; 2022-06-22)
PROC: 0JPT3XZ Removal of Tunneled Vascular Access Device from Trunk Subcutaneous Tissue and Fascia, Percutaneous Approach (ICD-10-PCS; principal; 2022-06-24)
PROC: 5A1D70Z Performance of Urinary Filtration, Intermittent, Less than 6 Hours Per Day (ICD-10-PCS; 2022-06-24)
PROC: 02HV33Z Insertion of Infusion Device into Superior Vena Cava, Percutaneous Approach (ICD-10-PCS; 2022-06-28)
PROC: B548ZZA Ultrasonography of Superior Vena Cava, Guidance (ICD-10-PCS; 2022-06-28)
PROC: 5A1D70Z Performance of Urinary Filtration, Intermittent, Less than 6 Hours Per Day (ICD-10-PCS; 2022-06-28)
PROC: 5A1D70Z Performance of Urinary Filtration, Intermittent, Less than 6 Hours Per Day (ICD-10-PCS; 2022-07-02)
PROC: 02HV33Z Insertion of Infusion Device into Superior Vena Cava, Percutaneous Approach (ICD-10-PCS; 2022-07-03)
PROC: B548ZZA Ultrasonography of Superior Vena Cava, Guidance (ICD-10-PCS; 2022-07-03)
PROC: 5A1D70Z Performance of Urinary Filtration, Intermittent, Less than 6 Hours Per Day (ICD-10-PCS; 2022-07-05)
PROC: 02PYX3Z Removal of Infusion Device from Great Vessel, External Approach (ICD-10-PCS; 2022-07-08)
PROC: 0JH60XZ Insertion of Tunneled Vascular Access Device into Chest Subcutaneous Tissue and Fascia, Open Approach (ICD-10-PCS; 2022-07-08)
PROC: 05HY33Z Insertion of Infusion Device into Upper Vein, Percutaneous Approach (ICD-10-PCS; 2022-07-08)
PROC: B54NZZA Ultrasonography of Left Upper Extremity Veins, Guidance (ICD-10-PCS; 2022-07-08)
PROC: 5A1D70Z Performance of Urinary Filtration, Intermittent, Less than 6 Hours Per Day (ICD-10-PCS; 2022-07-08)
DX: T80.211A Bloodstream infection due to central venous catheter, initial encounter (principal); A41.02 Sepsis due to Methicillin resistant Staphylococcus aureus; J18.9 Pneumonia, unspecified organism; J96.01 Acute respiratory failure with hypoxia; N17.0 Acute kidney failure with tubular necrosis; R65.21 Severe sepsis with septic shock; N18.6 End stage renal disease; J45.901 Unspecified asthma with (acute) exacerbation; N39.0 Urinary tract infection, site not specified; Z68.42 Body mass index [BMI] 45.0-49.9, adult; G82.20 Paraplegia, unspecified; E46 Unspecified protein-calorie malnutrition; I13.2 Hypertensive heart and chronic kidney disease with heart failure and with stage 5 chronic kidney disease, or end stage renal disease; Y83.8 Other surgical procedures as the cause of abnormal reaction of the patient, or of later complication, without mention of misadventure at the time of the procedure; M10.9 Gout, unspecified; J45.909 Unspecified asthma, uncomplicated; K80.20 Calculus of gallbladder without cholecystitis without obstruction; E87.8 Other disorders of electrolyte and fluid balance, not elsewhere classified; E83.52 Hypercalcemia; E86.0 Dehydration; D63.8 Anemia in other chronic diseases classified elsewhere; E66.01 Morbid (severe) obesity due to excess calories; E83.39 Other disorders of phosphorus metabolism; I50.9 Heart failure, unspecified; E11.22 Type 2 diabetes mellitus with diabetic chronic kidney disease; Z96.653 Presence of artificial knee joint, bilateral; Z20.822 Contact with and (suspected) exposure to COVID-19; Y92.89 Other specified places as the place of occurrence of the external cause; Z79.82 Long term (current) use of aspirin; Z79.1 Long term (current) use of non-steroidal anti-inflammatories (NSAID); Z86.73 Personal history of transient ischemic attack (TIA), and cerebral infarction without residual deficits; Z99.2 Dependence on renal dialysis
CPT/HCPCS: 36415; 70450; 71045; 71250; 76770; 80048; 80053; 80202; 80305; 81001; 82140; 82150; 83036; 83605; 83615; 83690; 83735; 83880; 84100; 84439; 84443; 84484; 85018; 85025; 85379; 85610; 85651; 85730; 86140; 86886; 86900; 86901; 86920; 87040; 87081; 87086; 87186; 87635-QW; 93005; 94640; 96365; 96367; 99291; C1894; C9113; G0480; J0696; J1450; J1644; J2001; J2405; J2543; J2704; J2997; J3370; J3475; J3490; J7030; J7060; J7613; J7644; Q0092; Q5106

== ENCOUNTER 2022-07-28 17:28 | Inpatient (IN) | payer OTHER ==
[~2022-07-28] VITALS: Ht 162.6 cm; Wt 134.7 kg
[~2022-07-28 17:28] MED LIST changes: +ACET-8211 PO; +ATOR20TA40 PO; -PRED20TA5 PO
--- NOTE | 2022-07-28 17:29 | NUR ---
PT BIBA TO BED 9.
[2022-07-28] MEDS ORDERED: cefTRIAXone 1,000 MG in DEXT 5% MINI-BAG PLUS 50 ML IV ONE (17:40)
--- NOTE | 2022-07-28 17:40 | NUR ---
ASSUMED PATIENT CARE, NURSING ASSESSMENT COMPLETED.
[2022-07-28 17:44] VITALS: BP 95/53
[2022-07-28] MEDS ORDERED: NACL 0.9% 1,000 ML IV ONE ×2 (17:50→19:40)
[2022-07-28 17:59] LABS: BASOPHILS % (AUTO) 0.4 % (0.0-2.0); EOSINOPHILS # (AUTO) 0.1 K/uL (0-0.4); EOSINOPHILS % (AUTO) 0.7 % (0.0-4.0); HEMATOCRIT 33.4 % (36-48); HEMOGLOBIN 10.7 g/dL (12.0-16.0); LYMPHOCYTES # (AUTO) 1.3 K/uL (2.5-16.5); MEAN CORPUSCULAR HEMOGLOBIN 31 pg (27-31); MEAN CORPUSCULAR HGB CONC 32 g/dL (33-37); MEAN CORPUSCULAR VOLUME 95.7 fL (80-94); MONOCYTES # (AUTO) 1.1 K/uL (0.8-1.0); MONOCYTES % (AUTO) 9.7 % (1.7-9.3); NEUTROPHILS # (AUTO) 8.5 K/uL (1.8-7.7); NEUTROPHILS % (AUTO) 77.2 % (42.2-75.2); PLATELET COUNT (AUTO) 222 K/uL (140-450); RED BLOOD CELL COUNT(AUTO) 3.49 MIL/uL (4.20-5.40); RED CELL DISTRIBUTION WIDTH 18.7 % (11.6-13.7)
--- NOTE | 2022-07-28 18:07 | NUR ---
TO CT VIA [facility].
[2022-07-28] MEDS ORDERED: cefTRIAXone 1,000 MG VIAL ONE (18:19)
[2022-07-28 18:20] LABS: ALBUMIN 3.7 g/dL (3.4-5.0); CARBON DIOXIDE 33.5 mmol/L (21-32); CHLORIDE 99 mmol/L (98-107); GLUCOSE 118 mg/dL (74-106); POTASSIUM 4.5 mmol/L (3.5-5.1); SODIUM SERUM 138 mmol/L (136-145); TOTAL BILIRUBIN 0.5 mg/dL (0.0-1.0); UREA NITROGEN, BLOOD 33 mg/dL (7-18)
[2022-07-28 18:25] LABS: CREATININE 7.2 mg/dL (0.6-1.3)
[2022-07-28 18:36] LABS: ASPARTATE AMINOTRANSFERASE 16 U/L (15-37)
--- NOTE | 2022-07-28 19:14 | NUR ---
FR 16 FC INSERTED VIA ASCEPTIC TECHNIQUE. CLOUDY, MINIMAL URINE OUPUT NOTED.
[2022-07-28] MEDS ORDERED: ONDA-188 SL (19:23)
--- NOTE | 2022-07-28 19:32 | NUR ---
PT IS RESTING ON THE BED. HE HAS NASAL CANULA 2L. WAITING FOR URINE
[2022-07-28 20:06] LABS: APPEARANCE,URINE CLEAR (CLEAR); BILIRUBIN,URINE 2+ (NEGATIVE); BLOOD, URINE 2+ (NEGATIVE); COLOR,URINE YELLOW (YELLOW); LEUKOCYTE ESTERASE ,URINE 2+ (NEGATIVE); NITRITE, URINE NEGATIVE (NEGATIVE); UGLUCOSE NEGATIVE (NEGATIVE)
[2022-07-28 20:20] LABS: RBC,URINE 20-50 /HPF (0-5); WBC,URINE 20-60 /HPF (0-5)
--- NOTE | 2022-07-28 20:29 | NUR ---
SISTER KAVON CALLED REQUESTING UPDATE, REQUESTING CALL BACK
--- NOTE | 2022-07-28 20:30 | NUR ---
SISTER KAVON CELL [phone]
[2022-07-28 22:45] VITALS: BP 106/49
--- NOTE | 2022-07-28 22:45 | NUR ---
RECEIVED PT FROM ER NURSE RAF. PT ARRIVED VIA GURNEY, PT AWAKE, ALERT AND ORIENTED X 3, ON 2L O2 VIA NC. BREATHING EVEN AND UNLABORED. NO RESPIRATORY DISTRESS NOTED. DENIES PAIN. IV ON L HAND ,G20, PATENT AND INTACT. SKIN WARM, DRY AND INTACT. SILVA IN PLACE. ALL PRECAUTIONS IN PLACE. CALL LIGHT WITHIN REACH. WILL CONTINUE TO MONITOR.
--- NOTE | 2022-07-28 23:23 | NUR ---
Patient will be admitted to care of [facility]i fever aloc. Admited to . Will go to room. Belongings list completed. Report to phiplips.
[2022-07-29] MEDS ORDERED: ACETAMINOPHEN EXTRA STRENGTH 500 MG TAB PO PRN (02:00)
--- NOTE | 2022-07-29 02:30 | NUR ---
PT COMPLAINED OF L SHOULDER PAIN. INFORMED DOCTOR AND RECEIVED ORDER [id number] PRN.
--- NOTE | 2022-07-29 03:11 | NUR ---
PT CLEANED AND REPOSITIONED. PT TOLERATED WELL. WILL CONTINUE TO MONITOR.
[2022-07-29 04:00] VITALS: BP 99/53
--- NOTE | 2022-07-29 04:14 | NUR ---
PT ALSEEP. NO S/SX OF DISTRESS NOTED.ALL PRECAUTIONS IN PLACE. CALL LIGHT WITHIN REACH. WILL CONTINUE TO MONITOR.
[2022-07-29 06:45] LABS: BASOPHILS % (AUTO) 0.2 % (0.0-2.0); EOSINOPHILS # (AUTO) 0.1 K/uL (0-0.4); EOSINOPHILS % (AUTO) 1.1 % (0.0-4.0); HEMATOCRIT 30.2 % (36-48); HEMOGLOBIN 9.4 g/dL (12.0-16.0); LYMPHOCYTES % (AUTO) 10.9 % (20.5-51.1); MEAN CORPUSCULAR HEMOGLOBIN 30 pg (27-31); MEAN CORPUSCULAR HGB CONC 31 g/dL (33-37); MEAN CORPUSCULAR VOLUME 97.4 fL (80-94); MONOCYTES # (AUTO) 0.9 K/uL (0.8-1.0); MONOCYTES % (AUTO) 10.6 % (1.7-9.3); NEUTROPHILS # (AUTO) 6.8 K/uL (1.8-7.7); NEUTROPHILS % (AUTO) 77.2 % (42.2-75.2); PLATELET COUNT (AUTO) 194 K/uL (140-450); WHITE BLOOD COUNT (AUTO) 8.9 K/uL (4.8-10.8)
[2022-07-29 06:49] LABS: ANION GAP 11.8 (8-16); CARBON DIOXIDE 29.4 mmol/L (21-32); CHLORIDE 102 mmol/L (98-107); GLUCOSE 99 mg/dL (74-106); POTASSIUM 4.2 mmol/L (3.5-5.1); SODIUM SERUM 139 mmol/L (136-145); UREA NITROGEN, BLOOD 36 mg/dL (7-18)
[2022-07-29 06:51] LABS: CREATININE 7.8 mg/dL (0.6-1.3)
--- NOTE | 2022-07-29 07:30 | NUR ---
PT IS AWAKE YET SLEEPY NOT WANT TO TALK TO NURSE JUST ONE WORD [id number] ON , CALLED TALKED THE DIALYSIS .[id number]
[2022-07-29 08:00] VITALS: BP 127/93
--- NOTE | 2022-07-29 09:24 | NUR ---
PATIENT HAS BEEN SCREENED AND CATEGORIZED MODERATE NUTRITION RISK. PATIENT WILL BE SEEN WITHIN 3-5 DAYS OF ADMISSION. REVIEWED BY BRADEN COTTO RD
[2022-07-29] MEDS ORDERED: BACLOFEN 10 MG TAB PO PRN (09:30)
[2022-07-29] MEDS ORDERED: ONDANSETRON 4 MG ODT SL PRN (09:30)
[2022-07-29] MEDS ORDERED: HYDROcodone/APAP 7.5/325 MG 1 TAB PO PRN (09:30)
[2022-07-29] MEDS ORDERED: ONDANSETRON 4 MG/2 ML VIAL IVP PRN (09:30)
[2022-07-29] MEDS ORDERED: ACETAMINOPHEN 325 MG TAB PO SCH (09:30)
[2022-07-29] MEDS ORDERED: ACETAMINOPHEN 325 MG TAB PO PRN (09:30)
[2022-07-29] MEDS ORDERED: ALTEPLASE 100 MG VIAL IV ONE (10:00)
[2022-07-29] MEDS ORDERED: ALTEPLASE 2 MG VIAL MC SCH (10:05)
[2022-07-29 11:52] LABS: PROTHROMBIN TIME 10.9 secs (10.8-13.4)
[2022-07-29 11:55] LABS: CHOL/HDL RATIO 2.8 (1-4.5); FREE T4 (FREE THYROXINE) 0.92 ng/dL (0.76-1.46); THYROID STIMULATING HORMONE 0.71 uIU/mL (0.34-3.74)
[2022-07-29 12:00] VITALS: BP 127/93
[2022-07-29] MEDS: GABAPENTIN 100 MG CAP PO SCH ×2 (12:07→17:00)
[2022-07-29] MEDS: hydrALAZINE 25 MG TAB PO SCH ×2 (12:08→17:00)
[2022-07-29] MEDS ORDERED: ALBUMIN HUMAN 25% 100 ML IV ONE (13:43)
[2022-07-29] MEDS ORDERED: LACTULOSE 20 GM/30 ML UDC PO SCH (14:00)
[2022-07-29 16:00] VITALS: BP 107/55
--- NOTE | 2022-07-29 18:08 | NUR ---
DIALYSIS OUT PUT 1.4JC MORALES
[2022-07-29 20:00] VITALS: BP 116/87
--- NOTE | 2022-07-29 20:00 | NUR ---
RECEIVED PT FROM DAY RN FOR CONTINUITY OF CARE . PT AWAKE, ALERT AND ORIENTED X 3, ON 2L O2 VIA NC. BREATHING EVEN AND UNLABORED. NO RESPIRATORY DISTRESS NOTED. DENIES PAIN. IV ON L HAND ,G20, PATENT AND INTACT. SKIN WARM, DRY AND INTACT. SILVA IN PLACE. ALL PRECAUTIONS IN PLACE. CALL LIGHT WITHIN REACH. WILL CONTINUE TO MONITOR.
[2022-07-29] MEDS: LACTULOSE 20 GM/30 ML UDC PO SCH (20:36)
[2022-07-29] MEDS: DOCUSATE SODIUM 100 MG GELCAP PO SCH (20:36)
--- NOTE | 2022-07-29 21:30 | NUR ---
SCHEDULED MEDICATIONS GIVEN. PT TOLERATED WELL. WILL CONTINUE TO MONITOR.
--- NOTE | 2022-07-29 22:00 | NUR ---
PT HAD A BOWEL MOVEMENT,PT CLEANED AND REPOSITIONED. PT TOLERATED WELL. WILL CONTINUE TO MONITOR.
[2022-07-29 22:17] LABS: BARBITURATE, URINE NEGATIVE ng/ml (NEG <=200); BENZODIAZEPINE, URINE NEGATIVE ng/mL (NEG <=200); CANNABINOID, URINE NEGATIVE ng/mL (NEG <=50); COCAINE, URINE NEGATIVE ng/mL (NEG <=300); OPIATE, URINE NEGATIVE ng/mL (NEG <=2000); PHENCYCLIDINE SCREEN,URINE NEGATIVE ng/mL (NEG <=25)
--- NOTE | 2022-07-29 23:15 | NUR ---
PT HAD A BOWEL MOVEMENT,PT CLEANED AND REPOSITIONED. PT TOLERATED WELL. WILL CONTINUE TO MONITOR.
--- NOTE | 2022-07-30 02:42 | NUR ---
PT ASLEEP. VISIBLE CHEST RISE AND FALL NOTED. NO S/SX OF DISTRESS. ALL PRECAUTIONS IN PLACE. CALL LIGHT WITHIN REACH. WILL CONTINUE TO MONITOR.
[2022-07-30 06:52] LABS: BASOPHILS % (AUTO) 0.3 % (0.0-2.0); EOSINOPHILS # (AUTO) 0.3 K/uL (0-0.4); EOSINOPHILS % (AUTO) 3.7 % (0.0-4.0); HEMATOCRIT 28.5 % (36-48); LYMPHOCYTES # (AUTO) 2.1 K/uL (2.5-16.5); LYMPHOCYTES % (AUTO) 23.9 % (20.5-51.1); MEAN CORPUSCULAR HEMOGLOBIN 31 pg (27-31); MEAN CORPUSCULAR HGB CONC 32 g/dL (33-37); MEAN CORPUSCULAR VOLUME 97.4 fL (80-94); MONOCYTES # (AUTO) 1.4 K/uL (0.8-1.0); MONOCYTES % (AUTO) 15.3 % (1.7-9.3); NEUTROPHILS # (AUTO) 5.1 K/uL (1.8-7.7); NEUTROPHILS % (AUTO) 56.8 % (42.2-75.2); PLATELET COUNT (AUTO) 147 K/uL (140-450); RED BLOOD CELL COUNT(AUTO) 2.92 MIL/uL (4.20-5.40); RED CELL DISTRIBUTION WIDTH 17.9 % (11.6-13.7)
--- NOTE | 2022-07-30 06:52 | NUR ---
PT IS STABLE. NO ACUTE EVENTS THROUGHOUT THE NIGHT.NO S/SX OF DISTRESS AT THIS MOMENT.ALL NEEDS ATTENDED. ALL PRECAUTIONS IN PLACE. CALL LIGHT WITHIN REACH.WILL ENDORSE TO DAY SHIFT NURSE.
[2022-07-30 07:08] LABS: ANION GAP 13.2 (8-16); CARBON DIOXIDE 26.9 mmol/L (21-32); CHLORIDE 103 mmol/L (98-107); GLUCOSE 100 mg/dL (74-106); POTASSIUM 4.1 mmol/L (3.5-5.1); SODIUM SERUM 139 mmol/L (136-145); UREA NITROGEN, BLOOD 28 mg/dL (7-18)
[2022-07-30 07:50] LABS: CREATININE 6.3 mg/dL (0.6-1.3)
[2022-07-30 08:00] VITALS: BP 111/60
[2022-07-30 08:47] LABS: MAGNESIUM 2.2 mg/dL (1.8-2.4); PHOSPHORUS 4.6 mg/dL (2.5-4.9)
[2022-07-30] MEDS: amLODIPine 5 MG TAB PO SCH (09:00)
[2022-07-30] MEDS: hydrALAZINE 25 MG TAB PO SCH ×3 (09:00→17:00)
[2022-07-30] MEDS: GABAPENTIN 100 MG CAP PO SCH ×4 (09:00→17:00)
[2022-07-30] MEDS: LACTULOSE 20 GM/30 ML UDC PO SCH ×2 (09:05→20:46)
[2022-07-30] MEDS: FUROSEMIDE 20 MG TAB PO SCH (09:06)
[2022-07-30] MEDS: DOCUSATE SODIUM 100 MG GELCAP PO SCH ×2 (09:06→20:46)
[2022-07-30] MEDS: PANTOPRAZOLE 40 MG INJ VIAL IVP SCH (09:06)
[2022-07-30] MEDS: ASPIRIN 81 MG TAB.CHEW PO SCH (09:07)
[2022-07-30] MEDS: LORATADINE 10 MG TAB PO SCH (09:07)
[2022-07-30] MEDS: ATORVASTATIN 20 MG TAB PO SCH (09:07)
[2022-07-30 12:07] LABS: FOLIC ACID 8.1 ng/mL (>3.0)
[2022-07-30 16:00] VITALS: BP 114/42
--- NOTE | 2022-07-30 16:16 | NUR ---
DC PLANNING PER NOTES, PT CONFUSED, THEREFORE, SW OUTREACHED TO TO GATHER COLLATERAL INFORMATION. SPOKE WITH SOPHIA BOLAND WHO REPORTS PT IS IN [facility] CARE WITH FACILITY, ADMISSION DATE; 09/12/21. KYA REPORTS PT'S EMERGENCY CONTACT, SILVESTRE RIOS KAVON ADAMES,SISTER, / [phone]. KYA TO E-MAIL COPY OF POA. PT IS REPORTED TO BE A&O X3 AT BASELINE AND IS ABLE TO MAKE NEEDS KNOWN. PT IS REPORTS TO BE PRIMARILY BEDBOUND AND REQUIRES ASSISTANCE WITH ALL ADL;'S THAT STAFF AIDS WITH. PT IS REPORTED TO BE COMPLIANT WITH CARE. KYA REPORTS PT'S SISTER, KAVON IS ACTIVE IN CARE AND IS AWARE PT HAS BEEN ADMITTED TO [facility]. KYA REPORTS PT RECEIVES DIALYSIS TX WITH [facility] ON AT 4:30AM, TRANSPORTATION ARRANGED BY FACILITY, TREATING NEPH. DR. PRABHU WALTER. KYA REPORTS DC PLAN IS FOR PT TO RETURN TO , WHEN MEDICALLY STABLE. Addendum: 07/30/22 at 1616 by Juwan MILLER Amended: Links added.
--- NOTE | 2022-07-30 19:43 | NUR ---
RECEIVED FROM LEA RN (REGISTRY), PATIENT WAS FATIGUE FROM MULTIPLE LARGE BOWEL. PATIENT ALERT AND ORIENT X 4. PATIENT KEPT CLEAN AND DRY. NEEDS WERE MET. NO NOTED PAIN/DISCOMFORT. NO NOTED RESPIRATORY DISTRESS. SIDE RAILS UP X 3 FOR SAFETY AND ADJUSTMENT. CALL LIGHT IN REACH FOR ASSISTANCE. [email or web address]
--- NOTE | 2022-07-30 23:15 | NUR ---
PATIENT REFUSED HER LACTULOSE AND COLACE DUE TO MULTIPLE BOWEL MOVEMENTS DURING DAY SHIFT. 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 PATIENT WAS ABLE TO EAT ALL OF HER DINNER. SIDE RAILS UP X 3 FOR COMFORT AND SAFETY. MNURPH1
[2022-07-31 00:13] VITALS: BP 145/89
--- NOTE | 2022-07-31 01:21 | NUR ---
PATIENT KEPT CLEAN AND DRY. ALL NEEDS MET. CALL LIGHT WITHIN RE4ACH. [email or web address]
--- NOTE | 2022-07-31 03:41 | NUR ---
PATIENT OBSERVED SLEEPING OFF AND ON. KEPT CLEAN AND DRY. NO COMPLAINTS OF PAIN AND NO RESPIRATORY DISTRESS. [email or web address]
[2022-07-31 04:00] VITALS: BP 129/61
--- NOTE | 2022-07-31 05:30 | NUR ---
PATIENT WAS KEPT CLEAN AND DRY. PATIENT WAS ABLE VERBALIZE NEEDS AND ASSISTANCE NEEDED. CALL LIGHT WITHIN REACH [email or web address]
--- NOTE | 2022-07-31 07:07 | NUR ---
ENDORSED PATIENT TO GILLES RN (REGISTRY), PATIENT WAS STABLE AT THIS TIME. [email or web address]
[2022-07-31 07:19] LABS: MAGNESIUM 2.2 mg/dL (1.8-2.4); PHOSPHORUS 5.3 mg/dL (2.5-4.9)
[2022-07-31 07:20] LABS: ANION GAP 16.4 (8-16); CHLORIDE 99 mmol/L (98-107); GLUCOSE 101 mg/dL (74-106); POTASSIUM 4.4 mmol/L (3.5-5.1); SODIUM SERUM 136 mmol/L (136-145); UREA NITROGEN, BLOOD 44 mg/dL (7-18)
--- NOTE | 2022-07-31 07:21 | NUR ---
receive the patient from the health promotion educator rn in rm [id number] . aox4 admitting diagnosis of unrinary tract infection , altered level of consciousness . will continue to monitor . schedule for hemodialysis today . will continue to monitor
[2022-07-31 07:37] LABS: CREATININE 8.5 mg/dL (0.6-1.3)
[2022-07-31 08:03] LABS: BASOPHILS % (AUTO) 0.3 % (0.0-2.0); EOSINOPHILS # (AUTO) 0.3 K/uL (0-0.4); EOSINOPHILS % (AUTO) 3.1 % (0.0-4.0); HEMATOCRIT 29.2 % (36-48); HEMOGLOBIN 9.2 g/dL (12.0-16.0); LYMPHOCYTES # (AUTO) 2.5 K/uL (2.5-16.5); LYMPHOCYTES % (AUTO) 23.9 % (20.5-51.1); MEAN CORPUSCULAR HEMOGLOBIN 31 pg (27-31); MEAN CORPUSCULAR HGB CONC 32 g/dL (33-37); MEAN CORPUSCULAR VOLUME 96.8 fL (80-94); MONOCYTES # (AUTO) 1.3 K/uL (0.8-1.0); MONOCYTES % (AUTO) 12.6 % (1.7-9.3); NEUTROPHILS # (AUTO) 6.3 K/uL (1.8-7.7); NEUTROPHILS % (AUTO) 60.1 % (42.2-75.2); PLATELET COUNT (AUTO) 189 K/uL (140-450); RED BLOOD CELL COUNT(AUTO) 3.02 MIL/uL (4.20-5.40); RED CELL DISTRIBUTION WIDTH 17.8 % (11.6-13.7); WHITE BLOOD COUNT (AUTO) 10.5 K/uL (4.8-10.8)
[2022-07-31] MEDS: LORATADINE 10 MG TAB PO SCH (09:39)
[2022-07-31] MEDS: ASPIRIN 81 MG TAB.CHEW PO SCH (09:39)
[2022-07-31] MEDS: amLODIPine 5 MG TAB PO SCH (09:39)
[2022-07-31] MEDS: hydrALAZINE 25 MG TAB PO SCH ×3 (09:39→17:36)
[2022-07-31] MEDS: LACTULOSE 20 GM/30 ML UDC PO SCH ×2 (09:40→20:58)
[2022-07-31] MEDS: GABAPENTIN 100 MG CAP PO SCH ×3 (09:40→17:36)
[2022-07-31] MEDS: FUROSEMIDE 20 MG TAB PO SCH (09:40)
[2022-07-31] MEDS: DOCUSATE SODIUM 100 MG GELCAP PO SCH ×2 (09:40→20:58)
[2022-07-31] MEDS: ATORVASTATIN 20 MG TAB PO SCH (09:40)
[2022-07-31] MEDS: PANTOPRAZOLE 40 MG INJ VIAL IVP SCH (09:42)
[2022-07-31] MEDS ORDERED: IV Rocephin (12:38)
--- NOTE | 2022-07-31 12:45 | NUR ---
patient started on hemodialysis until 1545 output of 1.5 liters . albumin of 25% in 100 ml was also given . will continue to monitor
[2022-07-31] MEDS ORDERED: ALBUMIN HUMAN 25% 100 ML IV ONE ×2 (13:06→15:30)
[2022-07-31] MEDS ORDERED: MEROPENEM 1,000 MG in NACL 0.9% 50 ML IV SCH (14:15)
[2022-07-31] MEDS ORDERED: MEROPENEM 500 MG VIAL IV ONE (16:57)
[2022-07-31] MEDS: MEROPENEM 500 MG in NACL 0.9% 50 ML IV SCH (17:05)
--- NOTE | 2022-07-31 18:26 | NUR ---
will endorse to shift supervisor rn rn for continuity of care
--- NOTE | 2022-07-31 19:35 | NUR ---
RECEIVED PATIENT IN BED WATCHING TV. NO SOB NOTED. IV SITE ON THE RIGHT AC SALINE LOCK. DIALYSIS ACCESS ON THE LEFT UPPER CHEST DRESSING DRY AND INTACT. NO COMPLAINTS OF PAIN AT THIS TIME. CALL LIGHT IN REACH. SAFETY MEASURES IN PLACE.
--- NOTE | 2022-07-31 20:58 | NUR ---
PATIENT REFUSED LACTULOSE.
[2022-08-01] VITALS: BP 110/65
--- NOTE | 2022-08-01 04:45 | NUR ---
PATIENT SLEEPING, BREATHING NORMAL WITH SYMMETRICAL RISE AND FALL OF THE CHEST.
[2022-08-01 07:26] LABS: BASOPHILS % (AUTO) 0.3 % (0.0-2.0); EOSINOPHILS # (AUTO) 0.3 K/uL (0-0.4); HEMATOCRIT 27.1 % (36-48); HEMOGLOBIN 8.5 g/dL (12.0-16.0); LYMPHOCYTES # (AUTO) 2.5 K/uL (2.5-16.5); LYMPHOCYTES % (AUTO) 28.7 % (20.5-51.1); MEAN CORPUSCULAR HEMOGLOBIN 30 pg (27-31); MEAN CORPUSCULAR HGB CONC 32 g/dL (33-37); MEAN CORPUSCULAR VOLUME 94.9 fL (80-94); MONOCYTES # (AUTO) 1.3 K/uL (0.8-1.0); MONOCYTES % (AUTO) 14.8 % (1.7-9.3); NEUTROPHILS # (AUTO) 4.5 K/uL (1.8-7.7); NEUTROPHILS % (AUTO) 52.2 % (42.2-75.2); PLATELET COUNT (AUTO) 154 K/uL (140-450); RED BLOOD CELL COUNT(AUTO) 2.85 MIL/uL (4.20-5.40); RED CELL DISTRIBUTION WIDTH 17.7 % (11.6-13.7); WHITE BLOOD COUNT (AUTO) 8.6 K/uL (4.8-10.8)
[2022-08-01 07:28] LABS: ANION GAP 15.6 (8-16); CARBON DIOXIDE 24.6 mmol/L (21-32); CHLORIDE 102 mmol/L (98-107); GLUCOSE 92 mg/dL (74-106); POTASSIUM 4.2 mmol/L (3.5-5.1); SODIUM SERUM 138 mmol/L (136-145); UREA NITROGEN, BLOOD 28 mg/dL (7-18)
--- NOTE | 2022-08-01 07:32 | NUR ---
ENDORSED PATIENT TO DAY SHIFT NURSE FOR CONTINUITY OF CARE.
[2022-08-01 07:36] LABS: CREATININE 6.8 mg/dL (0.6-1.3)
[2022-08-01 07:38] LABS: MAGNESIUM 2.2 mg/dL (1.8-2.4); PHOSPHORUS 4.5 mg/dL (2.5-4.9)
[2022-08-01 08:00] VITALS: BP 108/55
[2022-08-01] MEDS: LACTULOSE 20 GM/30 ML UDC PO SCH ×2 (09:56→21:16)
[2022-08-01] MEDS: DOCUSATE SODIUM 100 MG GELCAP PO SCH ×2 (09:56→21:16)
[2022-08-01] MEDS: ASPIRIN 81 MG TAB.CHEW PO SCH (09:57)
[2022-08-01] MEDS: ATORVASTATIN 20 MG TAB PO SCH (09:57)
[2022-08-01] MEDS: amLODIPine 5 MG TAB PO SCH (09:58)
[2022-08-01] MEDS: hydrALAZINE 25 MG TAB PO SCH ×3 (09:58→17:52)
[2022-08-01] MEDS: LORATADINE 10 MG TAB PO SCH (09:59)
[2022-08-01] MEDS: GABAPENTIN 100 MG CAP PO SCH ×3 (09:59→17:52)
[2022-08-01] MEDS: FUROSEMIDE 20 MG TAB PO SCH (09:59)
[2022-08-01] MEDS: PANTOPRAZOLE 40 MG INJ VIAL IVP SCH (10:00)
[2022-08-01 16:00] VITALS: BP 93/55
[2022-08-01] MEDS: MEROPENEM 500 MG in NACL 0.9% 50 ML IV SCH (16:02)
[2022-08-01] MEDS ORDERED: hydrALAZINE 25 MG TAB PO PRN (18:20)
--- NOTE | 2022-08-01 21:16 | NUR ---
ADMINISTERED SCHEDULED DUE MEDICATIONS.
--- NOTE | 2022-08-01 21:42 | NUR ---
PATIENT IS RESTING IN BED AWAKE. NO SOB NOTED ON ROOM AIR. NO COMPLAINTS OF PAIN. SILVA CATHETER IN PLACE. PT IS ANURIC. IV SITE ON THE RIGHT AC SALINE LOCK. DIALYSIS ACCESS ON THE LEFT UPPER CHEST. CALL LIGHT WITHIN REACH. SAFETY MEASURES IN PLACE.
[2022-08-02] VITALS: BP 104/57
--- NOTE | 2022-08-02 07:10 | NUR ---
RECEIVED REPORT FROM UTILITY LINEMAN NURSE FOR CONTINUITY OF CARE. PT IS STABLE AT THIS TIME.
[2022-08-02 07:24] LABS: BASOPHILS % (AUTO) 0.3 % (0.0-2.0); EOSINOPHILS # (AUTO) 0.4 K/uL (0-0.4); EOSINOPHILS % (AUTO) 4.4 % (0.0-4.0); HEMATOCRIT 29.4 % (36-48); HEMOGLOBIN 9.2 g/dL (12.0-16.0); LYMPHOCYTES # (AUTO) 2.9 K/uL (2.5-16.5); LYMPHOCYTES % (AUTO) 32.6 % (20.5-51.1); MEAN CORPUSCULAR HEMOGLOBIN 30 pg (27-31); MEAN CORPUSCULAR HGB CONC 31 g/dL (33-37); MEAN CORPUSCULAR VOLUME 96.2 fL (80-94); MONOCYTES % (AUTO) 11.8 % (1.7-9.3); NEUTROPHILS # (AUTO) 4.5 K/uL (1.8-7.7); NEUTROPHILS % (AUTO) 50.9 % (42.2-75.2); PLATELET COUNT (AUTO) 190 K/uL (140-450); RED BLOOD CELL COUNT(AUTO) 3.05 MIL/uL (4.20-5.40); RED CELL DISTRIBUTION WIDTH 17.6 % (11.6-13.7); WHITE BLOOD COUNT (AUTO) 8.8 K/uL (4.8-10.8)
--- NOTE | 2022-08-02 07:25 | NUR ---
GAVE REPORT TO MORNING SHIFT NURSE FOR CONTINUITY OF CARE.
[2022-08-02 07:34] LABS: ANION GAP 18.5 (8-16); CARBON DIOXIDE 22.7 mmol/L (21-32); CHLORIDE 101 mmol/L (98-107); GLUCOSE 110 mg/dL (74-106); POTASSIUM 4.2 mmol/L (3.5-5.1); SODIUM SERUM 138 mmol/L (136-145); UREA NITROGEN, BLOOD 43 mg/dL (7-18)
[2022-08-02 07:38] LABS: CREATININE 8.6 mg/dL (0.6-1.3)
[2022-08-02 07:42] LABS: MAGNESIUM 2.1 mg/dL (1.8-2.4); PHOSPHORUS 5.9 mg/dL (2.5-4.9)
[2022-08-02 08:00] VITALS: BP 106/56
[2022-08-02] MEDS: LACTULOSE 20 GM/30 ML UDC PO SCH (09:00)
[2022-08-02] MEDS: ASPIRIN 81 MG TAB.CHEW PO SCH (09:50)
[2022-08-02] MEDS: PANTOPRAZOLE 40 MG INJ VIAL IVP SCH (09:50)
[2022-08-02] MEDS: DOCUSATE SODIUM 100 MG GELCAP PO SCH (09:51)
[2022-08-02] MEDS: GABAPENTIN 100 MG CAP PO SCH ×3 (09:51→16:44)
[2022-08-02] MEDS: FUROSEMIDE 20 MG TAB PO SCH (09:51)
[2022-08-02] MEDS: LORATADINE 10 MG TAB PO SCH (09:51)
[2022-08-02] MEDS: ATORVASTATIN 20 MG TAB PO SCH (09:51)
[2022-08-02] MEDS ORDERED: MERO500V16 IV (13:04)
[2022-08-02] MEDS ORDERED: ALBUMIN HUMAN 25% 100 ML IV ONE (13:38)
[2022-08-02] MEDS ORDERED: ALBUMIN HUMAN 25% 100 ML IV SCH (14:00)
--- NOTE | 2022-08-02 14:18 | NUR ---
JOHAN EDMOND: REFERRAL PACKET SENT TO [facility] Addendum: 08/02/22 at 1522 by ASIF MURPHY CM PT WAS ACCEPTED BACK TO [facility],RM NUMBER [id number], ACCEPTING DOCTOR IS DR Candelaria GARNER. CALLED [facility] AND SPOKE WITH PRAVEENA TO CONFIRM DIALYSIS WILL CONTINUE TUESDAY, TUESDAY, TUESDAY, AND TUESDAY AT 04:30 AM STARTING TOMORROW 08/03/22 Addendum: 08/02/22 at 1523 by ASIF MURPHY CM CALL FOR REPORT NUMBER Addendum: 08/02/22 at 1548 by ASIF MURPHY CM JOHAN CRIMPING MACHINE OPERATOR: FAXED [facility] THE TRANSPORTATION REQUEST FORM. CALLED NURSE TO INFORM THAT PT TRANSPORTATION IS SET UP FOR 18:00 TODAY 08/02/22. SPOKE WITH PTS SISTER KAVON TO INFORM THAT PT WILL BE DISCHARGED TODAY TO [facility]. Addendum: 08/02/22 at 1720 by Juwan MILLER OUTREACHED TO CALL THE CAR [phone] FOR UPDATE ON TRANSPORT. TRANSPORTATION ARRANGED WITH JASBIR AT CALL THE CAR FOR A 6PM CONFIRMATION# [id number]. ENDORSED TO PT NURSE
--- NOTE | 2022-08-02 15:12 | NUR ---
DC PLANNING: PER [facility], THEY ARE ABLE TO TAKE THE PATIENT BACK.
--- NOTE | 2022-08-02 15:22 | NUR ---
PER [facility], PATIENT WILL GO TO ROOM 6B UNDER DR. GARNER.
--- NOTE | 2022-08-02 15:23 | NUR ---
08/02/22 RD INITIAL ASSESSMENT COMPLETED PLEASE REFER TO NUTRITION ASSESSMENT UNDER CARE ACTIVITY FOR ESTIMATED NUTRITIONAL NEEDS. 1. CONTINUE RENAL DIET TOLERATED 2. RECOMMEND NEPRO BID. 3. MONITOR PO INTAKE, GI, LAB VALUES. 4. RD TO FOLLOW-UP 3-5 DAYS, MODERATE RISK REVIEWED BY BRADEN COTTO RD
[2022-08-02 16:00] VITALS: BP 99/48
[2022-08-02] MEDS: MEROPENEM 500 MG in NACL 0.9% 50 ML IV SCH (16:44)
[2022-08-02 17:46] VITALS: BP 106/56
[2022-08-03] MEDS ORDERED: EPOETIN ALFA-EPBX 4,000 UNITS/ML VIAL IV SCH (09:00)
== END 2022-08-02 17:52 | disposition home or self-care (01) | DRG 70 ==
LOC: MED 17:28 → MTU 20:21
PROC: 5A1D70Z Performance of Urinary Filtration, Intermittent, Less than 6 Hours Per Day (ICD-10-PCS; principal; 2022-07-29)
PROC: 5A1D70Z Performance of Urinary Filtration, Intermittent, Less than 6 Hours Per Day (ICD-10-PCS; 2022-07-31)
PROC: 5A1D70Z Performance of Urinary Filtration, Intermittent, Less than 6 Hours Per Day (ICD-10-PCS; 2022-08-02)
DX: G93.41 Metabolic encephalopathy (principal); N17.0 Acute kidney failure with tubular necrosis; N18.6 End stage renal disease; N39.0 Urinary tract infection, site not specified; Z68.43 Body mass index [BMI] 50.0-59.9, adult; Z16.12 Extended spectrum beta lactamase (ESBL) resistance; I13.2 Hypertensive heart and chronic kidney disease with heart failure and with stage 5 chronic kidney disease, or end stage renal disease; J45.909 Unspecified asthma, uncomplicated; K80.20 Calculus of gallbladder without cholecystitis without obstruction; M10.9 Gout, unspecified; K76.82 Hepatic encephalopathy; D63.8 Anemia in other chronic diseases classified elsewhere; M19.011 Primary osteoarthritis, right shoulder; E66.01 Morbid (severe) obesity due to excess calories; J32.0 Chronic maxillary sinusitis; B96.20 Unspecified Escherichia coli [E. coli] as the cause of diseases classified elsewhere; Z96.653 Presence of artificial knee joint, bilateral; I50.9 Heart failure, unspecified; Z20.822 Contact with and (suspected) exposure to COVID-19; Z79.82 Long term (current) use of aspirin; Z79.899 Other long term (current) drug therapy; Z86.73 Personal history of transient ischemic attack (TIA), and cerebral infarction without residual deficits; Z88.6 Allergy status to analgesic agent; Z99.2 Dependence on renal dialysis
CPT/HCPCS: 36415; 70450; 71045; 73030; 80048; 80053; 80305; 81001; 82140; 82150; 82607; 82728; 82746; 83036; 83540; 83605; 83690; 83735; 83880; 84100; 84439; 84443; 84484; 85025; 85045; 85610; 85730; 87040; 87081; 87086; 93005; 96365; 99285; C9113; J0696; J1644; J2185; J2997; J7060; P9046; Q0092

== ENCOUNTER 2022-08-22 20:15 | Inpatient (IN) | payer OTHER ==
[~2022-08-22] VITALS: Ht 167.6 cm; Wt 127.0 kg
[2022-08-22 20:15] VITALS: BP 132/72
[~2022-08-22 20:15] MED LIST changes: +MERO500V16 IV; +ONDA-188 SL
--- NOTE | 2022-08-22 20:27 | NUR ---
[facility]B, X 1 DAY, SAO2 95%ON RA, SHES DIALYSIS PATIENT WITH ASTHMA TOO.
--- NOTE | 2022-08-22 20:27 | NUR ---
LUIS TELLEZ TO BED #8
[2022-08-22] MEDS ORDERED: NACL 0.9% 1,000 ML IV ONE (21:20)
[2022-08-22 21:47] LABS: BASOPHILS # (AUTO) 0.1 K/uL (0.00-0.22); BASOPHILS % (AUTO) 0.8 % (0.0-2.0); EOSINOPHILS # (AUTO) 0.3 K/uL (0-0.4); HEMATOCRIT 31.7 % (36-48); HEMOGLOBIN 10.2 g/dL (12.0-16.0); LYMPHOCYTES # (AUTO) 2.6 K/uL (2.5-16.5); LYMPHOCYTES % (AUTO) 33.5 % (20.5-51.1); MEAN CORPUSCULAR HEMOGLOBIN 30 pg (27-31); MEAN CORPUSCULAR HGB CONC 32 g/dL (33-37); MEAN CORPUSCULAR VOLUME 92.9 fL (80-94); MONOCYTES # (AUTO) 0.7 K/uL (0.8-1.0); MONOCYTES % (AUTO) 8.5 % (1.7-9.3); NEUTROPHILS # (AUTO) 4.1 K/uL (1.8-7.7); NEUTROPHILS % (AUTO) 53.2 % (42.2-75.2); PLATELET COUNT (AUTO) 244 K/uL (140-450); RED BLOOD CELL COUNT(AUTO) 3.42 MIL/uL (4.20-5.40); RED CELL DISTRIBUTION WIDTH 19.5 % (11.6-13.7); WHITE BLOOD COUNT (AUTO) 7.7 K/uL (4.8-10.8)
[2022-08-22 22:01] LABS: ALBUMIN 3.7 g/dL (3.4-5.0); ANION GAP 13.9 (8-16); ASPARTATE AMINOTRANSFERASE 18 U/L (15-37); CARBON DIOXIDE 33.3 mmol/L (21-32); CHLORIDE 98 mmol/L (98-107); GLUCOSE 131 mg/dL (74-106); POTASSIUM 4.2 mmol/L (3.5-5.1); SODIUM SERUM 141 mmol/L (136-145); TOTAL BILIRUBIN 0.5 mg/dL (0.0-1.0); UREA NITROGEN, BLOOD 41 mg/dL (7-18)
[2022-08-22 22:03] LABS: CREATININE 8.2 mg/dL (0.6-1.3)
--- NOTE | 2022-08-22 22:06 | NUR ---
URINE AND COVID SWAB COLLECTED AND SENT TO LAB
[2022-08-22 22:22] LABS: APPEARANCE,URINE CLEAR (CLEAR); BILIRUBIN,URINE NEGATIVE (NEGATIVE); BLOOD, URINE 2+ (NEGATIVE); COLOR,URINE YELLOW (YELLOW); LEUKOCYTE ESTERASE ,URINE 3+ (NEGATIVE); NITRITE, URINE NEGATIVE (NEGATIVE); UGLUCOSE NEGATIVE (NEGATIVE)
[2022-08-22 22:43] LABS: RBC,URINE 0-5 /HPF (0-5); WBC,URINE TOO MANY TO COUNT /HPF (0-5)
[2022-08-22] MEDS ORDERED: cefTRIAXone 1,000 MG VIAL ONE (23:10)
[2022-08-23 00:20] VITALS: BP 127/76
--- NOTE | 2022-08-23 00:20 | NUR ---
RECEIVED REPORT FROM ER NURSE RAF FOR CONTINUITY OF CARE. PATIENT IS A&O X1. PATIENT WAS ABLE TO STATE HER NAME; BUT WASN'T SURE WHERE SHE WAS, WHY SHE WAS HERE, OR WHAT TIME OF DAY IT WAS. PATIENT IS ON 2L NC, BREATHING IS NORMAL WITH SYMMETRICAL RISE AND FALL OF CHEST. IV IS A 20G LFA, NO FLUIDS RUNNING AT THIS TIME (SALINE LOCKED). PATIENT IS VERY LETHARGIC AND DROWSY; LYING IN SEMI-FOWLERS POSITION. BED IS IN LOWEST POSITION, WHEELS LOCKED, CALL LIGHT IN PLACE. WILL CONTINUE TO OBSERVE PATIENT.
--- NOTE | 2022-08-23 00:46 | NUR ---
Patient will be admitted to care of UTI. Admited to TELEMETRY. Will go to room 114 . Belongings list completed. Report to RONNY Burch
[2022-08-23 04:00] VITALS: BP 114/57
--- NOTE | 2022-08-23 05:00 | NUR ---
PATIENT HAS SLEPT THROUGHOUT THE NIGHT. BREATHING IS NORMAL WITH SYMMETRICAL RISE AND FALL OF CHEST. PATIENT WAS CHECKED FOR STOOL, AND HAD NOT HAD A BM. PATIENT'S CATHETER BAG WAS EMPTY OF URINE. WILL CONTINUE TO OBSERVE PATIENT.
--- NOTE | 2022-08-23 07:30 | NUR ---
REPORT RECEIVED FROM NIGHTSHIFT NURSE, RONNY. PT A/O X2. PT STATES SHE IS AT "[facility]" REORIENTED AND EXPLANED SHE IS AT [facility]. SPEECH DELAYED. HOB ELEVATED. ON 2L NC WITH O2 SATURATION @ 98%. PT NOTED WITH TREMORS THROUGHOUT. WILL FOLLOW-UP WITH MD REGARDING BUN/CREATININE LEVEL WELL NEPHRO CONSULT. PT ON RENAL DIET. LFA #20 SL. SKIN'S INTACT. NEEDS ALL MET AT THIS TIME. ALL SAFETY MEASURES IN PLACE.
--- NOTE | 2022-08-23 07:31 | NUR ---
ENDORSED TO DAY SHIFT NURSE SANDRA FOR CONTINUITY OF CARE. PATIENT IS STABLE.
[2022-08-23 07:55] LABS: BASOPHILS % (AUTO) 0.5 % (0.0-2.0); EOSINOPHILS # (AUTO) 0.3 K/uL (0-0.4); EOSINOPHILS % (AUTO) 3.3 % (0.0-4.0); HEMATOCRIT 31.3 % (36-48); HEMOGLOBIN 9.5 g/dL (12.0-16.0); LYMPHOCYTES # (AUTO) 2.2 K/uL (2.5-16.5); LYMPHOCYTES % (AUTO) 25.4 % (20.5-51.1); MEAN CORPUSCULAR HEMOGLOBIN 29 pg (27-31); MEAN CORPUSCULAR HGB CONC 31 g/dL (33-37); MEAN CORPUSCULAR VOLUME 96.2 fL (80-94); MONOCYTES # (AUTO) 0.8 K/uL (0.8-1.0); MONOCYTES % (AUTO) 9.8 % (1.7-9.3); NEUTROPHILS # (AUTO) 5.2 K/uL (1.8-7.7); PLATELET COUNT (AUTO) 216 K/uL (140-450); RED BLOOD CELL COUNT(AUTO) 3.25 MIL/uL (4.20-5.40); RED CELL DISTRIBUTION WIDTH 19.2 % (11.6-13.7); WHITE BLOOD COUNT (AUTO) 8.5 K/uL (4.8-10.8)
[2022-08-23 08:00] VITALS: BP 167/67
--- NOTE | 2022-08-23 08:00 | NUR ---
CONTACTED DR. BONE FOR NEPHRO CONSULT AND DR. BONE ORDER FOR DR. DUNN TO BE CONSULTED STAT. CONTACTED DR. DUNN AND RELAYED LABS TO HIM.
[2022-08-23 08:08] LABS: ANION GAP 16.1 (8-16); CARBON DIOXIDE 31.7 mmol/L (21-32); CHLORIDE 101 mmol/L (98-107); GLUCOSE 110 mg/dL (74-106); POTASSIUM 4.8 mmol/L (3.5-5.1); SODIUM SERUM 144 mmol/L (136-145); UREA NITROGEN, BLOOD 44 mg/dL (7-18)
[2022-08-23 08:33] LABS: CREATININE 8.7 mg/dL (0.6-1.3)
--- NOTE | 2022-08-23 09:00 | NUR ---
AM LABS SENT TO DR. DUNN. AWAITING HD ORDERS.
--- NOTE | 2022-08-23 09:17 | NUR ---
PATIENT HAS BEEN SCREENED AND CATEGORIZED MODERATE NUTRITION RISK. PATIENT WILL BE SEEN WITHIN 3-5 DAYS OF ADMISSION. REVIEWED BY BRADEN COTTO RD
--- NOTE | 2022-08-23 09:30 | NUR ---
DIALYSIS NURSE NOTIFIED OF DIALYSIS
[2022-08-23] MEDS ORDERED: POTASSIUM CHLORIDE 10 MEQ TABER PO PRN (10:55)
[2022-08-23] MEDS ORDERED: MAG SULF 2000 MG/WATER PREMIX 50 ML IV PRN (10:55)
[2022-08-23] MEDS ORDERED: ONDANSETRON 4 MG ODT SL PRN (10:55)
[2022-08-23] MEDS ORDERED: ACETAMINOPHEN 325 MG TAB PO SCH (10:55)
[2022-08-23] MEDS ORDERED: ONDANSETRON 4 MG/2 ML VIAL IVP PRN (10:55)
[2022-08-23] MEDS ORDERED: ACETAMINOPHEN 325 MG TAB PO PRN (10:55)
[2022-08-23] MEDS ORDERED: BACLOFEN 10 MG TAB PO PRN (10:55)
--- NOTE | 2022-08-23 11:40 | NUR ---
SCREEN FOR LOW NABEEL SCALE AT RISK, CONTINUE TO FOLLOW PRESSURE ULCER PREVENTION INTERVENTIONS. -TURN AND REPOSITION PATIENT Q 2H, ASSIST IF NEEDED -ASSESS AND MONITOR SKIN CONDITION DURING POSITION CHANGES -OFFLOAD BILATERAL HEELS BY PLACING PILLOWS UNDER CALVES AT ALL TIMES, UNLESS OTHERWISE CONTRAINDICATED -PRESSURE REDISTRIBUTION BY PLACING PILLOWS AND OFFLOADING SACRALCOCCYX -KEEP SKIN CLEAN AND DRY AT ALL TIMES.
[2022-08-23] MEDS ORDERED: EPOETIN ALFA EPBX IV SCH ×2 (11:50→12:13)
[2022-08-23 12:00] VITALS: BP 125/72
[2022-08-23] MEDS: hydrALAZINE 25 MG TAB PO SCH ×2 (12:10→16:44)
[2022-08-23] MEDS: GABAPENTIN 100 MG CAP PO SCH ×2 (12:10→16:44)
[2022-08-23] MEDS: EPOETIN IV SCH (12:19)
[2022-08-23 14:28] LABS: PROTHROMBIN TIME 10.1 secs (10.8-13.4)
[2022-08-23 14:58] LABS: FREE T4 (FREE THYROXINE) 0.98 ng/dL (0.76-1.46); PHOSPHORUS 4.7 mg/dL (2.5-4.9); THYROID STIMULATING HORMONE 1.05 uIU/mL (0.34-3.74)
--- NOTE | 2022-08-23 15:25 | NUR ---
DIALYSIS NURSE CONTACTED DR. DUNN FOR CATH ASHUTOSH.
--- NOTE | 2022-08-23 15:45 | NUR ---
HD COMPLETED WITH 1L OUT. PT STILL WITH BODY TREMORS. LESS BODY TREMORS SEEN THAN IN THE AM. PT'S VERBAL RESPONSE STILL WITH DELAYED RESPONSE. MORE AWAKE THAN THIS AM. PT VOMITED X1 WITH 100 ML EMESIS. HYGIENIC CARE PROVIDED. NEEDS ALL MET AT THIS TIME. ALL SAFETY MEASURES IN PLACE.
--- NOTE | 2022-08-23 15:56 | NUR ---
PHYSICAL THERAPY NOTE: ATTEMPTED TO SEE PATIENT FOR PHYSICAL THERAPY EVALUATION HOWEVER PATIENT UNDERGOING DIALYSIS. VERY DROWSY WITH EYE CLOSURE THROUGHOUT WITH INTRODUCTION. WILL FOLLOW UP TOMORROW IF APPROPRIATE; RN AWARE.
[2022-08-23 16:00] VITALS: BP 115/51
[2022-08-23] MEDS ORDERED: ALTEPLASE 2 MG VIAL MC SCH (16:00)
[2022-08-23 16:36] LABS: CHOL/HDL RATIO 2.4 (1-4.5)
--- NOTE | 2022-08-23 18:20 | NUR ---
PT BACK FROM CT HEAD. DINNER AT BEDSIDE.
--- NOTE | 2022-08-23 18:45 | NUR ---
OFFERED DINNER HOWEVER, PT REFUSED DINNER.
--- NOTE | 2022-08-23 19:20 | NUR ---
REPORT GIVEN TO NIGHTSHIFT NURSERONNY FOR CONTINUITY OF CARE.
--- NOTE | 2022-08-23 19:30 | NUR ---
RECEIVED REPORT FROM DAY SHIFT NURSE SANDRA FOR CONTINUITY OF CARE. PATIENT IS A&O X1. PATIENT IS ON 2L NC, BREATHING IS NORMAL WITH SYMMETRICAL RISE AND FALL OF CHEST. IV IS A 20G LFA, NO FLUIDS RUNNING AT THIS TIME (SALINE LOCKED). PATIENT IS VERY LETHARGIC AND DROWSY; LYING IN SEMI-FOWLERS POSITION. BED IS IN LOWEST POSITION, WHEELS LOCKED, CALL LIGHT IN PLACE. WILL CONTINUE TO OBSERVE PATIENT.
[2022-08-23 20:00] VITALS: BP 116/66
[2022-08-23] MEDS ORDERED: OLOPATADINE HCL RIGHT EYE SCH (21:00)
[2022-08-23] MEDS ORDERED: OLOPATADINE HCL LEFT EYE SCH (21:00)
[2022-08-23] MEDS: DOCUSATE SODIUM 100 MG GELCAP PO SCH (21:00)
[2022-08-23 21:11] LABS: BARBITURATE, URINE NEGATIVE ng/ml (NEG <=200); BENZODIAZEPINE, URINE NEGATIVE ng/mL (NEG <=200); CANNABINOID, URINE NEGATIVE ng/mL (NEG <=50); COCAINE, URINE NEGATIVE ng/mL (NEG <=300); PHENCYCLIDINE SCREEN,URINE NEGATIVE ng/mL (NEG <=25)
[2022-08-23 21:12] LABS: OPIATE, URINE NEGATIVE ng/mL (NEG <=2000)
--- NOTE | 2022-08-23 22:00 | NUR ---
WOKE PATIENT UP TO ADMINISTER 2100 COLACE AND HEPARIN. PATIENT SEEMED CONFUSED ABOUT WHERE SHE WAS; I REORIENTED PATIENT BY REMINDING HER THAT SHE WAS IN THE HOSPITAL. I INFORMED PATIENT THAT I HAD TWO MEDICATIONS FOR HER; I TOLD HER THE FIRST IS A STOOL SOFTENER TO HELP HER POOP; PATIENT REFUSED THE MEDICATION SAYING, "I DON'T WANT THAT". PATIENT WAS STILL LETHARGIC SO I RE-EXPLAINED THE MEDICATION. PATIENT STILL REFUSED. I THEN TOLD PATIENT ABOUT THE HEPARIN INJECTION AND EXPLAINED THAT IT WILL HELP PREVENT ANY BLOOD CLOTS FROM GETTING BIGGER IF SHE'S FORMED ANY. PATIENT STATED "NO, I DON'T WANT THAT." I RE-EXPLAINED THE MEDICATION, BUT PATIENT STILL REFUSED. 2100 MEDICATIONS WERE REFUSED BY PATIENT. PATIENT IS STILL LETHARGIC. WILL CONTINUE TO OBSERVE PATIENT.
[2022-08-24] VITALS: BP 95/48
[2022-08-24 04:00] VITALS: BP 98/71
--- NOTE | 2022-08-24 05:30 | NUR ---
PATIENT HAS SLEPT THROUGHOUT THE NIGHT. PATIENT HAD ONE BM AND 50ML OF URINE IN CATHETER. PATIENT WAS CLEANED, AND NEW VARUN'S WAS APPLIED. WILL CONTINUE TO OBSERVE PATIENT.
[2022-08-24 07:07] LABS: BASOPHILS % (AUTO) 0.4 % (0.0-2.0); EOSINOPHILS # (AUTO) 0.2 K/uL (0-0.4); EOSINOPHILS % (AUTO) 1.7 % (0.0-4.0); HEMATOCRIT 30.8 % (36-48); HEMOGLOBIN 9.4 g/dL (12.0-16.0); LYMPHOCYTES # (AUTO) 2.1 K/uL (2.5-16.5); LYMPHOCYTES % (AUTO) 18.4 % (20.5-51.1); MEAN CORPUSCULAR HEMOGLOBIN 29 pg (27-31); MEAN CORPUSCULAR HGB CONC 31 g/dL (33-37); MEAN CORPUSCULAR VOLUME 95.9 fL (80-94); MONOCYTES % (AUTO) 8.4 % (1.7-9.3); NEUTROPHILS # (AUTO) 8.2 K/uL (1.8-7.7); NEUTROPHILS % (AUTO) 71.1 % (42.2-75.2); PLATELET COUNT (AUTO) 176 K/uL (140-450); RED BLOOD CELL COUNT(AUTO) 3.21 MIL/uL (4.20-5.40); RED CELL DISTRIBUTION WIDTH 20.3 % (11.6-13.7); WHITE BLOOD COUNT (AUTO) 11.5 K/uL (4.8-10.8)
[2022-08-24 07:16] LABS: ANION GAP 17.9 (8-16); CARBON DIOXIDE 28.2 mmol/L (21-32); CHLORIDE 95 mmol/L (98-107); GLUCOSE 88 mg/dL (74-106); POTASSIUM 4.1 mmol/L (3.5-5.1); SODIUM SERUM 137 mmol/L (136-145); UREA NITROGEN, BLOOD 35 mg/dL (7-18)
[2022-08-24 07:26] LABS: PHOSPHORUS 6.2 mg/dL (2.5-4.9)
--- NOTE | 2022-08-24 07:44 | NUR ---
ENDORSED TO DAY SHIFT NURSE MEMBRENO FOR CONTINUITY OF CARE. PATIENT IS STABLE. Addendum: 08/24/22 at 0745 by Bc Woodard RN ENDORSED TO DAY SHIFT NURSE SANDRA FOR CONTINUITY OF CARE. PATIENT IS STABLE.
--- NOTE | 2022-08-24 07:45 | NUR ---
REPORT RECEIVED FROM [facility] NURSERONNY. PT ASLEEP. RR EVEN & UNLABORED. HOB ELEVATED. ON 2L NC WITH O2 SAT @ 96%. TELE, SR. RENAL DIET. SILVA VIA GRAVITY. LFA #20 SL. NEEDS ALL MET AT THIS TIME. ALL SAFETY MEASURES IN PLACE.
[2022-08-24 08:00] VITALS: BP 106/60
--- NOTE | 2022-08-24 08:17 | NUR ---
FAMILY AT BEDSIDE. Addendum: 08/24/22 at 0910 by Agency Nurse 19, GEOVANNA RN FAMILY AT BEDSIDE. PT AWAKE AND ALERT, EATING BREAKFAST. O2 SATURATION @ 100% ON 2L NC. DENIES PAIN AT THIS TIME. MILD BODY TREMORS. CONTACTED SOLAR PROJECT ENGINEER FOR POSSIBLE DIALYSIS TODAY.
[2022-08-24] MEDS: amLODIPine 5 MG TAB PO SCH (09:00)
[2022-08-24] MEDS: GABAPENTIN 100 MG CAP PO SCH ×3 (09:00→17:28)
[2022-08-24] MEDS: LORATADINE 10 MG TAB PO SCH (09:00)
[2022-08-24] MEDS: DOCUSATE SODIUM 100 MG GELCAP PO SCH ×2 (09:00→21:17)
[2022-08-24] MEDS: hydrALAZINE 25 MG TAB PO SCH ×3 (09:00→17:28)
[2022-08-24] MEDS: ATORVASTATIN 20 MG TAB PO SCH (09:00)
[2022-08-24] MEDS: ASPIRIN 81 MG TAB.CHEW PO SCH (09:00)
[2022-08-24] MEDS: PANTOPRAZOLE 40 MG INJ VIAL IVP SCH (09:00)
--- NOTE | 2022-08-24 09:43 | NUR ---
PATIENT RECEIVING DIALYSIS. FAMILY WITH PATIENT AT BEDSIDE
[2022-08-24] MEDS ORDERED: ALBUMIN HUMAN 25% 50 ML IV ONE (11:10)
[2022-08-24] MEDS ORDERED: ALBUMIN HUMAN 25% 100 ML IV ONE (11:11)
--- NOTE | 2022-08-24 11:24 | NUR ---
DR. DUNN ORDER FOR HEPARIN FOR HD. 2 VIALS OF 5000UNITS/1ML HEPARIN GIVEN TO DIALYSIS NURSE AND ADMINISTERED BY DIALYSIS NURSE.
--- NOTE | 2022-08-24 11:45 | NUR ---
FOUND PATIENT ON NASAL CANNULA GETTING HER HD, HD NURSE REQUESTED OXYGEN PLACEMENT FOR SAFETY.
--- NOTE | 2022-08-24 13:00 | NUR ---
PT DONE WITH DIALYSIS, DIALYSIS NURSE REPORTS 500CC REMOVED. PT IS STABLE AND RESTING. WILL CONTINUE WITH CARE.
[2022-08-24 16:00] VITALS: BP 133/77
[2022-08-24] MEDS ORDERED: Z-GUARD PASTE TP PRN (17:35)
[2022-08-24 20:00] VITALS: BP 100/60
--- NOTE | 2022-08-24 20:00 | NUR ---
ROUNDS , PT SLEEPING BUT EASILY AROUSABLE BY SOUNDS AND TOUCH , NO COMPLAIN MADE , I INFORM HER SHE HAS MED FOR DRY EYES SHE NEEDED , BUT SHE DENIES ANY EYES DISCOMFORT AT THIS TIME , WILL CONT. TO MONITOR . CALL LIGHT WITHIN REACH . BED ALARM ON .
[2022-08-24] MEDS: [UNRECOGNIZED DRUG - OTHER] OP SCH (21:00)
[2022-08-25] VITALS: BP 101/62
--- NOTE | 2022-08-25 01:40 | NUR ---
HIT THE CALL LIGHT , PT C/O NAUSEA AND VOMITING , BP 109/60 , HR 80 , RR 20 , O2 SAT 98 % - WILL MEDICATE AND WILL CONT. TO MONITOR .CALL LIGHT WITHIN REACH .
--- NOTE | 2022-08-25 02:30 | NUR ---
ROUNDS , NO COMPLAIN OF NAUSEA AND VOMITING AT THIS TIME , O2 SAT 98 % , PT WATCHING TV , DENIES ANY PAIN , WILL CONT. TO MONITOR
[2022-08-25 04:00] VITALS: BP 104/60
--- NOTE | 2022-08-25 04:00 | NUR ---
NO PROGRESS O0F NAUSEA AND VOMITING . NO COMPLAIN MADE . , CALL LIGHT WITHIN REACH .
--- NOTE | 2022-08-25 06:00 | NUR ---
OFFER NEW GOWN BUT PT SAID AFTER BREAKFAST . CLEAN GOWN LEFT AT BEDSIDE . WILL ENDORSE .
--- NOTE | 2022-08-25 07:25 | NUR ---
ASSUMED CONTINUITY OF CARE. INITIAL ASSESSMENT DONE. KEEP COMFORTABLE ON BED. FALL PRECAUTION APPLIED. CALL LIGHT WITHIN REACH.
--- NOTE | 2022-08-25 07:28 | NUR ---
ENDORSED PT FOR CONT. OF CARE .
[2022-08-25 07:29] LABS: BASOPHILS % (AUTO) 0.4 % (0.0-2.0); EOSINOPHILS # (AUTO) 0.3 K/uL (0-0.4); HEMATOCRIT 28.7 % (36-48); HEMOGLOBIN 8.9 g/dL (12.0-16.0); LYMPHOCYTES # (AUTO) 2.8 K/uL (2.5-16.5); LYMPHOCYTES % (AUTO) 28.2 % (20.5-51.1); MEAN CORPUSCULAR HEMOGLOBIN 30 pg (27-31); MEAN CORPUSCULAR HGB CONC 31 g/dL (33-37); MEAN CORPUSCULAR VOLUME 94.7 fL (80-94); MONOCYTES # (AUTO) 1.1 K/uL (0.8-1.0); MONOCYTES % (AUTO) 11.3 % (1.7-9.3); NEUTROPHILS # (AUTO) 5.7 K/uL (1.8-7.7); NEUTROPHILS % (AUTO) 57.1 % (42.2-75.2); PLATELET COUNT (AUTO) 172 K/uL (140-450); RED BLOOD CELL COUNT(AUTO) 3.03 MIL/uL (4.20-5.40); RED CELL DISTRIBUTION WIDTH 19.8 % (11.6-13.7)
[2022-08-25 07:35] LABS: ANION GAP 13.6 (8-16); CARBON DIOXIDE 29.1 mmol/L (21-32); CHLORIDE 95 mmol/L (98-107); GLUCOSE 97 mg/dL (74-106); POTASSIUM 3.7 mmol/L (3.5-5.1); SODIUM SERUM 134 mmol/L (136-145); UREA NITROGEN, BLOOD 31 mg/dL (7-18)
[2022-08-25 07:52] LABS: MAGNESIUM 1.9 mg/dL (1.8-2.4); PHOSPHORUS 6.6 mg/dL (2.5-4.9)
[2022-08-25 08:00] VITALS: BP 105/54
--- NOTE | 2022-08-25 08:40 | NUR ---
DC PLANNING PER NOTES, ANOX1, THEREFORE, SW OUTREACHED TO TO GATHER COLLATERAL INFORMATION. SPOKE WITH SOPHIA BOLAND WHO REPORTS PT IS IN SNF CARE WITH FACILITY, ADMISSION DATE; 09/12/21. KYA REPORTS PT'S EMERGENCY CONTACT, GABRIEL, MDM KAVON ADAMES, SISTER, / [phone]. PT IS REPORTED TO BE A&O X3 AT BASELINE AND IS ABLE TO MAKE NEEDS KNOWN. PT IS REPORTS TO BE PRIMARILY BEDBOUND AND REQUIRES ASSISTANCE WITH ALL ADL'S THAT STAFF AIDS WITH. PT IS REPORTED TO BE COMPLIANT WITH CARE. KYA REPORTS PT'S SISTER, KAVON IS ACTIVE IN CARE AND IS AWARE PT HAS BEEN ADMITTED TO [facility]. KYA REPORTS PT RECEIVES DIALYSIS TX WITH [facility] ON AT 4:30AM, TRANSPORTATION ARRANGED BY FACILITY, TREATING NEPH. DR. PRABHU WALTER. KYA REPORTS DC PLAN IS FOR PT TO RETURN TO , WHEN MEDICALLY STABLE. Addendum: 08/25/22 at 0840 by Juwan MILLER Amended: Links added.
[2022-08-25 08:44] LABS: CREATININE 6.7 mg/dL (0.6-1.3)
[2022-08-25] MEDS: DOCUSATE SODIUM 100 MG GELCAP PO SCH ×2 (09:00→21:28)
[2022-08-25] MEDS: amLODIPine 5 MG TAB PO SCH (09:00)
[2022-08-25] MEDS: hydrALAZINE 25 MG TAB PO SCH ×3 (09:00→17:03)
[2022-08-25] MEDS: EPOETIN IV SCH (09:00)
[2022-08-25] MEDS: ATORVASTATIN 20 MG TAB PO SCH (09:00)
[2022-08-25] MEDS ORDERED: EPOETIN ALFA-EPBX 10,000 UNITS/ML VIAL SUBQ SCH (09:00)
[2022-08-25] MEDS: ASPIRIN 81 MG TAB.CHEW PO SCH (09:13)
[2022-08-25] MEDS: LORATADINE 10 MG TAB PO SCH (09:14)
[2022-08-25] MEDS: PANTOPRAZOLE 40 MG INJ VIAL IVP SCH (09:19)
[2022-08-25] MEDS: GABAPENTIN 100 MG CAP PO SCH ×3 (09:19→17:04)
[2022-08-25] MEDS: [UNRECOGNIZED DRUG - OTHER] OP SCH ×2 (09:47→21:29)
--- NOTE | 2022-08-25 11:45 | NUR ---
DR. DUNN CAME AND REVIEWED PT. CHART.
[2022-08-25 12:00] VITALS: BP 107/58
[2022-08-25 16:00] VITALS: BP 112/72
--- NOTE | 2022-08-25 16:58 | NUR ---
CALLED HD NURSE -JABARI CARROLL REGARDING PT. HD ORDER FOR TOMORROW 08/26/22.
--- NOTE | 2022-08-25 19:20 | NUR ---
RECD. RESTING IN BED, AWAKE, A/OX3. RESPIRATION EVEN AND UNLABORED. ON 02 AT 2 LITERS VIA N/C, 02 SAT -99%. LEFT UPPER CHEST DIALYSIS CATHETER IN PLACED WITH DRESSING DRY AND INTACT. IV SALINE LOCK AT THE LEFT FOREARM G20, PATENT AND INTACT. WITH BILATERAL LE EXTREMITIES PITTING EDEMA 2+, ELEVATED ON PILLOWS. F/C PATENT DRAINING MINIMAL AMOUNT OF DARK YELLOW URINE. DENIES PAIN 0/10.
[2022-08-25 20:00] VITALS: BP 121/60
--- NOTE | 2022-08-25 21:30 | NUR ---
DR. MELENDEZ ORDERED F/C TO BE TAKEN OUT, IT CAUSES INFECTION TO THE PATIENT.
--- NOTE | 2022-08-25 22:00 | NUR ---
PATIENT WATCHING TV. SILVA CATHETER TAKEN OUT.
--- NOTE | 2022-08-26 | NUR ---
SLEEPING COMFORTABLY IN BED. RESPIRATION EVEN AND UNLABORED. CALL LIGHT IN REACH.
--- NOTE | 2022-08-26 02:00 | NUR ---
NO DISTRESS NOTED. COMFORTABLY ASLEEP IN BED.
--- NOTE | 2022-08-26 04:00 | NUR ---
NO SHORTNESS OF BREATH OR BODY TREMORS NOTED. DENIES PAIN 0/10.
[2022-08-26 07:14] LABS: BASOPHILS % (AUTO) 0.4 % (0.0-2.0); EOSINOPHILS # (AUTO) 0.3 K/uL (0-0.4); EOSINOPHILS % (AUTO) 3.6 % (0.0-4.0); HEMATOCRIT 26.8 % (36-48); HEMOGLOBIN 8.4 g/dL (12.0-16.0); LYMPHOCYTES # (AUTO) 2.5 K/uL (2.5-16.5); LYMPHOCYTES % (AUTO) 25.8 % (20.5-51.1); MEAN CORPUSCULAR HEMOGLOBIN 30 pg (27-31); MEAN CORPUSCULAR HGB CONC 31 g/dL (33-37); MEAN CORPUSCULAR VOLUME 94.8 fL (80-94); MONOCYTES % (AUTO) 10.8 % (1.7-9.3); NEUTROPHILS # (AUTO) 5.7 K/uL (1.8-7.7); NEUTROPHILS % (AUTO) 59.4 % (42.2-75.2); PLATELET COUNT (AUTO) 193 K/uL (140-450); RED BLOOD CELL COUNT(AUTO) 2.83 MIL/uL (4.20-5.40); RED CELL DISTRIBUTION WIDTH 19.8 % (11.6-13.7); WHITE BLOOD COUNT (AUTO) 9.5 K/uL (4.8-10.8)
[2022-08-26 07:22] LABS: ANION GAP 14.9 (8-16); CARBON DIOXIDE 27.1 mmol/L (21-32); CHLORIDE 93 mmol/L (98-107); GLUCOSE 104 mg/dL (74-106); SODIUM SERUM 131 mmol/L (136-145); UREA NITROGEN, BLOOD 51 mg/dL (7-18)
--- NOTE | 2022-08-26 07:25 | NUR ---
ENDORSED TO AM SHIFT NURSE FOR CONTINUITY OF CARE.
--- NOTE | 2022-08-26 07:26 | NUR ---
RECEIVED PT FROM CARD CHECKER NURSE FOR CONTINUITY OF CARE.
[2022-08-26 07:37] LABS: MAGNESIUM 1.8 mg/dL (1.8-2.4); PHOSPHORUS 8.6 mg/dL (2.5-4.9)
[2022-08-26 07:54] LABS: CREATININE 8.1 mg/dL (0.6-1.3)
[2022-08-26 08:00] VITALS: BP 113/57
--- NOTE | 2022-08-26 08:00 | NUR ---
PLAN OF CARE WAS DISCUSSED TO TRIPLE AIR VALVE TESTER
[2022-08-26] MEDS: ATORVASTATIN 20 MG TAB PO SCH (09:25)
[2022-08-26] MEDS: ASPIRIN 81 MG TAB.CHEW PO SCH (09:25)
[2022-08-26] MEDS: DOCUSATE SODIUM 100 MG GELCAP PO SCH ×2 (09:26→22:12)
[2022-08-26] MEDS: amLODIPine 5 MG TAB PO SCH (09:26)
[2022-08-26] MEDS: hydrALAZINE 25 MG TAB PO SCH ×3 (09:26→17:00)
[2022-08-26] MEDS: GABAPENTIN 100 MG CAP PO SCH ×3 (09:26→17:00)
[2022-08-26] MEDS: [UNRECOGNIZED DRUG - OTHER] OP SCH ×2 (09:27→22:16)
[2022-08-26] MEDS: LORATADINE 10 MG TAB PO SCH (09:27)
[2022-08-26] MEDS: PANTOPRAZOLE 40 MG INJ VIAL IVP SCH (10:53)
--- NOTE | 2022-08-26 14:57 | NUR ---
DC MAYITO PATRICK RECEIVED ORDER FOR PATIENT TO GO BACK TO SNF TO CONTINUE CARE. FAXED TO [facility]; SPOKE WITH BEVERLEY AT [facility] LOCATED AT [address] [place] [address]. PT WILL BE GOING TO ROOM [address] MCKENZIE. [place] TRANSPORTATION SET UP WITH KHOA AT [facility] . I SCHEDULED A [id number] MOTHER'S HELPER TIME BUT [facility] WILL NOTIFY THE NURSING SY WITH THE EXACT MOTHER'S HELPER TIME. Addendum: 08/26/22 at 1704 by Megan Rangel RN DC PLANNING: CALLED [facility] SPOKE WITH MILDRED ESPINOS[facility] WILL MOTHER'S HELPER PATIENT AT 7:30 PM. NOTIFIED REENA AUSTIN
--- NOTE | 2022-08-26 15:08 | NUR ---
P.T. NOTES HOLD P.T. EVAL, ON DIALYSIS, FF UP TOMORROW IF ABLE.
[2022-08-26 16:00] VITALS: BP 116/61
--- NOTE | 2022-08-26 16:59 | NUR ---
CALLED [facility] TO GIVE REPORT. ENDORSED PT TO RACHELLE.
--- NOTE | 2022-08-26 19:20 | NUR ---
ENDORSED PT TO AIR CONDITIONING COIL ASSEMBLER NURSE FOR CONTINUITY OF CARE. PT IS STABLE.
--- NOTE | 2022-08-26 19:21 | NUR ---
RECEIVED REPORT FROM JORGE BALDWIN FOR CONTINUITY OF CARE. PT AWAKE IN BED, WATCHING TV. RESPIRATIONS EVEN AND UNLABORED ON RA. DENIES PAIN. NO DISTRESS NOTED. HAD HD TODAY. FOR DC TO SNF. ALL DOCUMENTS READY. REPORT WAS GIVEN BY AM NURSE TO ACCEPTING FACILITY. PT AWARE AND READY TO BE DC, AWAITING FOR TRANSPORT. CALL LIGHT WITHIN REACH. SAFETY PRECAUTIONS IN PLACE.
--- NOTE | 2022-08-26 20:40 | NUR ---
REPORT WAS GIVEN TO GEOVANNA FAIR FOR CONTINUITY OF CARE. [facility] FOLLOWING-UP TRANSPORT. PT IS STABLE.
--- NOTE | 2022-08-26 21:42 | NUR ---
[facility] IS HERE FOR THE PT. PT IS AWARE OF WHERE SHE IS GOING. PT IS STABLE.
--- NOTE | 2022-08-26 22:03 | NUR ---
[facility] WAS UNABLE TO TRANSPORT THE PT DUE TO NOT HAVING THE PROPER GURNEY. PT NEEDS A BARIATRIC GURNEY AND [facility] WON'T BE ABLE TO TRANSPORT THE PT UNTIL MORNING OR THEY SAID ANOTHER COMPANY WILL DO IT IF NOT BY [facility]. CALLED PT SISTER AND IS AWARE OF THE SITUATION. [facility] IS AWARE PT IS NOT BEING TRANSPORTED UNTIL MORNING.
--- NOTE | 2022-08-27 00:40 | NUR ---
CHECKED ON PT. PT IS SLEEPING COMFORTABLY IN BED. NOT IN ANY DISTRESS. WILL CONTINUE TO MONITOR THE PT.
[2022-08-27 04:00] VITALS: BP 122/69
--- NOTE | 2022-08-27 05:00 | NUR ---
PT IS SLEEPING COMFORTABLY IN BED. PT NOT IN ANY DISTRESS. BREATHING EVEN AND UNLABORED. WILL CONTINUE TO MONITOR THE PT.
--- NOTE | 2022-08-27 07:20 | NUR ---
ENDORSED PT TO DAY SHIFT RN FOR CONTINUITY OF CARE. PT IS STABLE.
--- NOTE | 2022-08-27 07:21 | NUR ---
RECEIVED PT FROM AIRPORT PLANNER NURSE FOR CONTINUITY OF CARE. PT IS AWAKE AOX3. ABLE TO VERBALIZE NEEDS. RESPIRATIONS EVEN AND UNLABORED ON RA. NO DISTRESS NOTED. CALL LIGHT WITHIN REACH. ALL SAFETY PRECAUTIONS IN PLACE.
[2022-08-27 07:34] LABS: BASOPHILS % (AUTO) 0.4 % (0.0-2.0); EOSINOPHILS # (AUTO) 0.3 K/uL (0-0.4); EOSINOPHILS % (AUTO) 2.9 % (0.0-4.0); HEMATOCRIT 26.4 % (36-48); HEMOGLOBIN 8.3 g/dL (12.0-16.0); LYMPHOCYTES # (AUTO) 2.4 K/uL (2.5-16.5); LYMPHOCYTES % (AUTO) 27.7 % (20.5-51.1); MEAN CORPUSCULAR HEMOGLOBIN 30 pg (27-31); MEAN CORPUSCULAR HGB CONC 31 g/dL (33-37); MEAN CORPUSCULAR VOLUME 94.1 fL (80-94); MONOCYTES # (AUTO) 0.9 K/uL (0.8-1.0); NEUTROPHILS # (AUTO) 5.2 K/uL (1.8-7.7); PLATELET COUNT (AUTO) 167 K/uL (140-450); RED BLOOD CELL COUNT(AUTO) 2.81 MIL/uL (4.20-5.40); WHITE BLOOD COUNT (AUTO) 8.8 K/uL (4.8-10.8)
[2022-08-27 07:42] LABS: MAGNESIUM 2.1 mg/dL (1.8-2.4); PHOSPHORUS 6.3 mg/dL (2.5-4.9)
[2022-08-27 07:53] LABS: ANION GAP 14.5 (8-16); CARBON DIOXIDE 27.4 mmol/L (21-32); CHLORIDE 96 mmol/L (98-107); GLUCOSE 99 mg/dL (74-106); POTASSIUM 3.9 mmol/L (3.5-5.1); SODIUM SERUM 134 mmol/L (136-145); UREA NITROGEN, BLOOD 41 mg/dL (7-18)
[2022-08-27 07:57] LABS: CREATININE 7.3 mg/dL (0.6-1.3)
[2022-08-27 08:00] VITALS: BP 127/73
[2022-08-27] MEDS: PANTOPRAZOLE 40 MG INJ VIAL IVP SCH (09:00)
[2022-08-27] MEDS: EPOETIN IV SCH (09:00)
[2022-08-27] MEDS: hydrALAZINE 25 MG TAB PO SCH ×2 (09:19→13:00)
[2022-08-27] MEDS: GABAPENTIN 100 MG CAP PO SCH ×2 (09:20→13:24)
[2022-08-27] MEDS: amLODIPine 5 MG TAB PO SCH (09:20)
[2022-08-27] MEDS: DOCUSATE SODIUM 100 MG GELCAP PO SCH (09:20)
[2022-08-27] MEDS: ASPIRIN 81 MG TAB.CHEW PO SCH (09:20)
[2022-08-27] MEDS: LORATADINE 10 MG TAB PO SCH (09:20)
[2022-08-27] MEDS: ATORVASTATIN 20 MG TAB PO SCH (09:21)
[2022-08-27] MEDS: [UNRECOGNIZED DRUG - OTHER] OP SCH (09:39)
--- NOTE | 2022-08-27 14:10 | NUR ---
DC PACKET REVIEWED WITH PT. ALL BELONGINGS GATHERED AND GIVEN TO TRANSPORT STAFF. NAME BAND REMOVED, NO IV. PT IN STABLE CONDITION. DC TO [facility].
== END 2022-08-27 14:10 | DRG 871 ==
LOC: MED 20:15 → MTU 23:14
PROC: 5A1D70Z Performance of Urinary Filtration, Intermittent, Less than 6 Hours Per Day (ICD-10-PCS; principal; 2022-08-23)
PROC: 5A1D70Z Performance of Urinary Filtration, Intermittent, Less than 6 Hours Per Day (ICD-10-PCS; 2022-08-24)
PROC: 5A1D70Z Performance of Urinary Filtration, Intermittent, Less than 6 Hours Per Day (ICD-10-PCS; 2022-08-26)
DX: A41.9 Sepsis, unspecified organism (principal); G93.41 Metabolic encephalopathy; N18.6 End stage renal disease; N39.0 Urinary tract infection, site not specified; Z68.41 Body mass index [BMI] 40.0-44.9, adult; E87.1 Hypo-osmolality and hyponatremia; D63.8 Anemia in other chronic diseases classified elsewhere; E66.9 Obesity, unspecified; E86.0 Dehydration; E83.39 Other disorders of phosphorus metabolism; J45.909 Unspecified asthma, uncomplicated; Z20.822 Contact with and (suspected) exposure to COVID-19; Z88.0 Allergy status to penicillin; Z88.8 Allergy status to other drugs, medicaments and biological substances; Z91.011 Allergy to milk products; Z79.899 Other long term (current) drug therapy; Z98.1 Arthrodesis status; Z99.2 Dependence on renal dialysis; Z79.82 Long term (current) use of aspirin; Z86.73 Personal history of transient ischemic attack (TIA), and cerebral infarction without residual deficits
CPT/HCPCS: 36415; 36600; 70450; 71045; 80048; 80053; 80305; 81001; 82140; 82150; 83036; 83605; 83690; 83735; 83880; 84100; 84439; 84443; 84484; 85025; 85610; 85730; 87040; 87081; 87086; 87186; 96374; 97110; 97112; 97163-GP; 97530; 99285; C9113; J0696; J1644; J2405; J2997; J7060; P9046; Q0092; Q5106

== ENCOUNTER 2022-09-15 23:28 | Inpatient (IN) | payer OTHER ==
[~2022-09-15] VITALS: Ht 172.7 cm; Wt 113.4 kg
[2022-09-15 23:30] VITALS: BP 133/84
--- NOTE | 2022-09-15 23:30 | NUR ---
Incident # [id number] Patient BIB by ROSALINDA from [facility]. C/O ALOC x today. Per reported, patient had altered mental status, baseline -A/O,X4, now A/O,X1 per staff. BS 92 at the [facility] [place]. PMHx: ESRD (Dialysis), HLD, HTN, Hemiplegia, Anemia
--- NOTE | 2022-09-15 23:35 | NUR ---
PT BIBA BLS. TAKEN TO BED 9
--- NOTE | 2022-09-16 00:14 | NUR ---
Dr. Pruett examining patient.
[2022-09-16] MEDS ORDERED: LORazepam 2 MG/ML VIAL IVP ONE (00:15)
--- NOTE | 2022-09-16 00:19 | NUR ---
APPELLATE CONFEREE AT BEDSIDE FOR BLOOD DRAW
--- NOTE | 2022-09-16 00:28 | NUR ---
PT TAKEN TO RADIOLOGY
[2022-09-16 00:33] LABS: BASOPHILS % (AUTO) 0.5 % (0.0-2.0); EOSINOPHILS # (AUTO) 0.2 K/uL (0-0.4); EOSINOPHILS % (AUTO) 3.2 % (0.0-4.0); HEMATOCRIT 34.8 % (36-48); HEMOGLOBIN 10.9 g/dL (12.0-16.0); LYMPHOCYTES # (AUTO) 2.5 K/uL (2.5-16.5); LYMPHOCYTES % (AUTO) 32.2 % (20.5-51.1); MEAN CORPUSCULAR HEMOGLOBIN 30 pg (27-31); MEAN CORPUSCULAR HGB CONC 31 g/dL (33-37); MEAN CORPUSCULAR VOLUME 95.1 fL (80-94); MONOCYTES # (AUTO) 0.7 K/uL (0.8-1.0); MONOCYTES % (AUTO) 8.5 % (1.7-9.3); NEUTROPHILS # (AUTO) 4.3 K/uL (1.8-7.7); NEUTROPHILS % (AUTO) 55.6 % (42.2-75.2); PLATELET COUNT (AUTO) 257 K/uL (140-450); RED BLOOD CELL COUNT(AUTO) 3.66 MIL/uL (4.20-5.40); RED CELL DISTRIBUTION WIDTH 20.4 % (11.6-13.7); WHITE BLOOD COUNT (AUTO) 7.7 K/uL (4.8-10.8)
[2022-09-16 01:02] LABS: SODIUM SERUM 141 mmol/L (136-145)
[2022-09-16 01:03] LABS: ANION GAP 17.3 (8-16); CARBON DIOXIDE 31.7 mmol/L (21-32); CHLORIDE 98 mmol/L (98-107); GLUCOSE 103 mg/dL (74-106); UREA NITROGEN, BLOOD 44 mg/dL (7-18)
[2022-09-16 01:04] LABS: ALBUMIN 3.6 g/dL (3.4-5.0); ASPARTATE AMINOTRANSFERASE 20 U/L (15-37); TOTAL BILIRUBIN 0.4 mg/dL (0.0-1.0)
[2022-09-16 01:05] LABS: CREATININE 9.5 mg/dL (0.6-1.3)
[2022-09-16 01:16] LABS: LIPASE 462 U/L (73-393)
[2022-09-16] MEDS ORDERED: LORazepam 2 MG/ML VIAL ONE (01:34)
[2022-09-16] MEDS ORDERED: LORA10TA19 PO (01:38)
[2022-09-16] MEDS ORDERED: AMLO10TA PO (01:38)
--- NOTE | 2022-09-16 01:38 | NUR ---
Med-rec reviewed.
[2022-09-16] MEDS ORDERED: ALBUTEROL 0.083% 2.5 MG/3 ML NEBU INH PRN (06:50)
[2022-09-16] MEDS ORDERED: DOCUSATE SODIUM 100 MG GELCAP PO PRN (06:55)
[2022-09-16] MEDS ORDERED: ONDANSETRON 4 MG/2 ML VIAL IVP PRN (06:55)
[2022-09-16] MEDS ORDERED: MAG SULF 2000 MG/WATER PREMIX 50 ML IV PRN (06:55)
[2022-09-16] MEDS ORDERED: POTASSIUM CHLORIDE 10 MEQ TABER PO PRN (06:55)
[2022-09-16] MEDS ORDERED: LORazepam 2 MG/ML VIAL IVP PRN (06:55)
[2022-09-16] MEDS ORDERED: ZOLPIDEM 10 MG TAB PO PRN (06:55)
[2022-09-16] MEDS ORDERED: CALCIUM GLUC 1 GM/50 mL NS BAG 50 ML IV SCH (07:10)
--- NOTE | 2022-09-16 08:35 | NUR ---
PT IN THE UNIT THE TELE MONITOR ON, REORIENTED TO THE ROOM BUT PT WAS VERY SLEEPY. [id number] ON , ASSESSMENT AND V.S DONE.[id number]
--- NOTE | 2022-09-16 08:35 | NUR ---
Report given to GEOVANNA Xavier. VSS. [place] all belongings.
[2022-09-16] MEDS: GABAPENTIN 100 MG CAP PO SCH ×3 (09:00→17:00)
[2022-09-16] MEDS: ASPIRIN 81 MG TAB.CHEW PO SCH (09:00)
[2022-09-16] MEDS: ATORVASTATIN 20 MG TAB PO SCH (09:00)
[2022-09-16] MEDS: hydrALAZINE 25 MG TAB PO SCH ×3 (10:32→17:00)
[2022-09-16 12:00] VITALS: BP 121/79
--- NOTE | 2022-09-16 12:28 | NUR ---
PATIENT HAS BEEN SCREENED AND CATEGORIZED MODERATE NUTRITION RISK. PATIENT WILL BE SEEN WITHIN 3-5 DAYS OF ADMISSION. REVIEWED BY BRADEN COTTO RD
[2022-09-16 16:00] VITALS: BP 108/87
[2022-09-16] MEDS ORDERED: ALBUMIN HUMAN 25% 100 ML IV PRN (17:55)
--- NOTE | 2022-09-16 19:30 | NUR ---
RECEIVED REPORT FROM DAY SHIFT NURSE FOR CONTINUITY OF CARE. PT IS AWAKE AT THIS TIME, CURRENTLY RECEIVING DIALYSIS. PT TO HAVE DIALYSIS M,W,F. PT IS A&O X4 BUT DOES HAVE PERIODS OF CONFUSION. CURRENTLY ON 5L NASAL CANULA SATING AT 100%. OVERALL SKIN IS INTACT, IV SITE TO RIGHT AC 20 GAUGE, SALINE LOCK AT THIS TIME. WILL MONITOR FREQUENTLY THROUGHOUT SHIFT.
[2022-09-16 20:00] VITALS: BP 117/52
[2022-09-16] MEDS: amLODIPine 5 MG TAB PO SCH (20:03)
--- NOTE | 2022-09-16 20:29 | NUR ---
PT DIALYSIS CUT SHORT. GOAL WAS 3 HOURS AND TO OBTAIN 2-3L. LASTED 2 HOURS AND 15 MINUTES WITH 1L OBTAINED. PT COMPLAINED OF STOMACH CRAMPING. PT BP ALSO RUNNING LOW. DR MADE AWARE AND AGREED TO DIALYSIS FOR TOMORROW. WILL HOLD BLOOD PRESSURE MEDICATION PER DIALYSIS NURSE CONCERNS, DR AWARE. WILL CONTINUE TO MONITOR.
[2022-09-16] MEDS: ACETAMINOPHEN 325 MG TAB PO PRN (21:46)
[2022-09-17] VITALS: BP 113/74
--- NOTE | 2022-09-17 02:20 | NUR ---
PT AWAKE IN BED, SATING WELL. NO COMPLAINTS OF PAIN OR SOB. WILL CONTINUE TO MONITOR THE PT.
[2022-09-17 04:00] VITALS: BP 119/65
--- NOTE | 2022-09-17 06:24 | NUR ---
PT STABLE AT THIS TIME. WILL ENDORSE TO DAY SHIFT NURSE FOR CONTINUITY OF CARE.
--- NOTE | 2022-09-17 07:30 | NUR ---
receive the patient from the operations supervisor 2nd shift rn in room 114 aox3-4 . with admitting diagnosis of acute metabolic encephalopathy . will continue to monitor . will have hemo dialysis today . will hold blood pressure medication .
[2022-09-17 08:00] VITALS: BP 100/80
[2022-09-17 08:49] LABS: ANION GAP 21.8 (8-16); BASOPHILS % (AUTO) 0.4 % (0.0-2.0); CARBON DIOXIDE 25.1 mmol/L (21-32); CHLORIDE 98 mmol/L (98-107); EOSINOPHILS # (AUTO) 0.3 K/uL (0-0.4); EOSINOPHILS % (AUTO) 3.3 % (0.0-4.0); GLUCOSE 90 mg/dL (74-106); HEMATOCRIT 34.3 % (36-48); HEMOGLOBIN 10.6 g/dL (12.0-16.0); LYMPHOCYTES # (AUTO) 2.4 K/uL (2.5-16.5); LYMPHOCYTES % (AUTO) 26.1 % (20.5-51.1); MEAN CORPUSCULAR HEMOGLOBIN 30 pg (27-31); MEAN CORPUSCULAR HGB CONC 31 g/dL (33-37); MEAN CORPUSCULAR VOLUME 96.4 fL (80-94); MONOCYTES # (AUTO) 1.5 K/uL (0.8-1.0); MONOCYTES % (AUTO) 15.9 % (1.7-9.3); NEUTROPHILS % (AUTO) 54.3 % (42.2-75.2); PLATELET COUNT (AUTO) 199 K/uL (140-450); POTASSIUM 5.9 mmol/L (3.5-5.1); RED BLOOD CELL COUNT(AUTO) 3.56 MIL/uL (4.20-5.40); RED CELL DISTRIBUTION WIDTH 20.2 % (11.6-13.7); SODIUM SERUM 139 mmol/L (136-145); UREA NITROGEN, BLOOD 42 mg/dL (7-18); WHITE BLOOD COUNT (AUTO) 9.2 K/uL (4.8-10.8)
[2022-09-17 08:52] LABS: CREATININE 9.1 mg/dL (0.6-1.3)
[2022-09-17] MEDS: hydrALAZINE 25 MG TAB PO SCH ×3 (09:00→17:00)
[2022-09-17] MEDS: ATORVASTATIN 20 MG TAB PO SCH (09:19)
[2022-09-17] MEDS: ASPIRIN 81 MG TAB.CHEW PO SCH (09:19)
[2022-09-17] MEDS: GABAPENTIN 100 MG CAP PO SCH ×3 (09:20→17:14)
[2022-09-17 12:00] VITALS: BP 122/65
--- NOTE | 2022-09-17 13:47 | NUR ---
started hemodialysis ended at 1647 . output of 1 liter. vital signs are stable bp 101/73 hr 76 temp 97 . will continue to monitor
[2022-09-17 16:00] VITALS: BP 112/77
--- NOTE | 2022-09-17 16:26 | NUR ---
DC PLANNING PT HEAVILY SLEEPING THEREFORE COLLAT INFO GATHERED FROM PTS SISTERBERLIN AT BEDSIDE. PT IS IN SNF CARE WITH FACILITY, ADMISSION DATE; 09/12/21. PTS SISTER KAVON IS, GABRIEL,, / [phone]. PT IS REPORTED TO BE A&O X3 AT BASELINE AND IS ABLE TO MAKE NEEDS KNOWN. PT IS REPORTED TO BE PRIMARILY BEDBOUND AND REQUIRES ASSISTANCE WITH ALL ADL'S THAT STAFF AIDS WITH. KAVON REPORTS PT WAS JUST APPROVED FOR 30 DAYS OF OT. PT IS REPORTED TO BE COMPLIANT WITH CARE. PT RECEIVES DIALYSIS TX WITH [facility] ON / AT 4:30AM, TRANSPORTATION ARRANGED BY FACILITY, TREATING NEPH. DR. PRABHU WALTER. KAVON REPORTS DC PLAN IS FOR PT TO RETURN TO , WHEN MEDICALLY STABLE. Addendum: 09/17/22 at 1627 by Juwan MILLER Amended: Links added.
--- NOTE | 2022-09-17 19:13 | NUR ---
will endorse to shift engineer rn for continuity of care . for nephro consult hemodialysis .
[2022-09-17 20:00] VITALS: BP 101/66
[2022-09-17] MEDS: amLODIPine 5 MG TAB PO SCH (21:02)
[2022-09-17] MEDS: ACETAMINOPHEN 325 MG TAB PO PRN (21:02)
[2022-09-18 00:48] VITALS: BP 107/53
[2022-09-18 04:00] VITALS: BP 109/55
--- NOTE | 2022-09-18 07:06 | NUR ---
receive the patinet from the assistant shift supervisor GEOVANNA nelson with admitting diagnosis of acute metabolic encephalopathy . will continue to monitor
[2022-09-18 07:20] LABS: BASOPHILS % (AUTO) 0.5 % (0.0-2.0); EOSINOPHILS # (AUTO) 0.3 K/uL (0-0.4); HEMATOCRIT 30.6 % (36-48); HEMOGLOBIN 9.6 g/dL (12.0-16.0); LYMPHOCYTES # (AUTO) 2.3 K/uL (2.5-16.5); LYMPHOCYTES % (AUTO) 33.2 % (20.5-51.1); MEAN CORPUSCULAR HEMOGLOBIN 30 pg (27-31); MEAN CORPUSCULAR HGB CONC 31 g/dL (33-37); MEAN CORPUSCULAR VOLUME 94.4 fL (80-94); MONOCYTES # (AUTO) 0.7 K/uL (0.8-1.0); MONOCYTES % (AUTO) 10.4 % (1.7-9.3); NEUTROPHILS # (AUTO) 3.6 K/uL (1.8-7.7); NEUTROPHILS % (AUTO) 51.9 % (42.2-75.2); PLATELET COUNT (AUTO) 184 K/uL (140-450); RED BLOOD CELL COUNT(AUTO) 3.24 MIL/uL (4.20-5.40); RED CELL DISTRIBUTION WIDTH 19.7 % (11.6-13.7)
[2022-09-18 07:31] LABS: ANION GAP 14.2 (8-16); CARBON DIOXIDE 32.4 mmol/L (21-32); CHLORIDE 100 mmol/L (98-107); GLUCOSE 104 mg/dL (74-106); POTASSIUM 4.6 mmol/L (3.5-5.1); SODIUM SERUM 142 mmol/L (136-145); UREA NITROGEN, BLOOD 31 mg/dL (7-18)
[2022-09-18 07:39] LABS: CREATININE 6.7 mg/dL (0.6-1.3)
[2022-09-18 08:00] VITALS: BP 91/59
[2022-09-18] MEDS: ATORVASTATIN 20 MG TAB PO SCH (08:32)
[2022-09-18] MEDS: GABAPENTIN 100 MG CAP PO SCH ×3 (08:33→17:28)
[2022-09-18] MEDS: ASPIRIN 81 MG TAB.CHEW PO SCH (08:34)
[2022-09-18] MEDS: hydrALAZINE 25 MG TAB PO SCH ×3 (08:34→17:00)
--- NOTE | 2022-09-18 11:05 | NUR ---
laboratory informed the RN the patient is positive on ESBL on the urine . RN informed the charge nurse
[2022-09-18 12:00] VITALS: BP 143/99
--- NOTE | 2022-09-18 12:30 | NUR ---
md burr was made aware of the ESBL urine Zosyn 2.245 Q8 hrs . will continue to monitor
[2022-09-18 16:00] VITALS: BP 97/54
--- NOTE | 2022-09-18 18:21 | NUR ---
patient allergy to penicillin . family of rafael . made aware
--- NOTE | 2022-09-18 18:58 | NUR ---
bactrim dm BID for 5 days was order instead of zosyn allergy
--- NOTE | 2022-09-18 19:06 | NUR ---
will endorse to foreclosure specialist rn fro continuity of care , will start on Bactrim for ESBL of the urine
[2022-09-18 20:00] VITALS: BP 102/64
[2022-09-18] MEDS ORDERED: SULFAMETH/TRIMETH DS 800/160MG 1 TAB PO SCH (21:00)
[2022-09-19] VITALS: BP 120/66
[2022-09-19 04:00] VITALS: BP 97/65
--- NOTE | 2022-09-19 07:23 | NUR ---
PT REMAINS A/O X3, WITH EPSIODES OF FORGETFULNESS, NO ACUTE DISTRESS NOTED . V/S STABLE. PT CARE ENDORSED TO INCOMING RN
[2022-09-19 07:43] LABS: BASOPHILS % (AUTO) 0.3 % (0.0-2.0); EOSINOPHILS # (AUTO) 0.3 K/uL (0-0.4); EOSINOPHILS % (AUTO) 3.7 % (0.0-4.0); HEMOGLOBIN 9.8 g/dL (12.0-16.0); LYMPHOCYTES # (AUTO) 3.1 K/uL (2.5-16.5); LYMPHOCYTES % (AUTO) 37.8 % (20.5-51.1); MEAN CORPUSCULAR HEMOGLOBIN 30 pg (27-31); MEAN CORPUSCULAR HGB CONC 32 g/dL (33-37); MEAN CORPUSCULAR VOLUME 93.8 fL (80-94); MONOCYTES # (AUTO) 0.8 K/uL (0.8-1.0); NEUTROPHILS # (AUTO) 3.9 K/uL (1.8-7.7); PLATELET COUNT (AUTO) 182 K/uL (140-450); RED CELL DISTRIBUTION WIDTH 19.5 % (11.6-13.7); WHITE BLOOD COUNT (AUTO) 8.1 K/uL (4.8-10.8)
[2022-09-19 07:53] LABS: ANION GAP 15.8 (8-16); CARBON DIOXIDE 29.2 mmol/L (21-32); CHLORIDE 97 mmol/L (98-107); GLUCOSE 96 mg/dL (74-106); SODIUM SERUM 137 mmol/L (136-145); UREA NITROGEN, BLOOD 47 mg/dL (7-18)
[2022-09-19 07:57] LABS: CREATININE 8.7 mg/dL (0.6-1.3)
[2022-09-19 08:02] VITALS: BP 124/95
[2022-09-19 08:24] LABS: MONOCYTES % (AUTO) 10.2 % (1.7-9.3)
[2022-09-19] MEDS: ASPIRIN 81 MG TAB.CHEW PO SCH (08:40)
[2022-09-19] MEDS: SULFAMETH/TRIMETH DS 800/160MG 1 TAB PO SCH ×2 (08:40→20:26)
[2022-09-19] MEDS: ATORVASTATIN 20 MG TAB PO SCH (08:40)
[2022-09-19] MEDS: GABAPENTIN 100 MG CAP PO SCH ×3 (08:40→18:14)
[2022-09-19] MEDS: ACETAMINOPHEN 325 MG TAB PO PRN (08:41)
[2022-09-19] MEDS: hydrALAZINE 25 MG TAB PO SCH ×3 (08:41→17:00)
[2022-09-19 12:00] VITALS: BP 106/78
[2022-09-19 16:00] VITALS: BP 90/42
--- NOTE | 2022-09-19 16:09 | NUR ---
Patient power of slab off mill tender, says she may hold her visits due to infection of esbl as her is a kidney transplant recipient. Patient request staff do not use wipes for her perineal care. She says they are making her skin irritation worse. Will endorse.
--- NOTE | 2022-09-19 19:28 | NUR ---
RECEIVED REPORT FROM DAY SHIFT NURSE FOR CONTINUITY OF CARE. PT IS AWAKE AT THIS TIME. ALERT AND ORIENTED X4, BUT DOES EXPERIENCE SOME EPISODES OF CONFUSION. PT NOW ON ROOM AIR SATING AT 96%. NO PAIN AT THIS TIME, NO SIGNS OF ACUTE DISTRESS NOTED. SAFETY MEASURES IN PLACE, BED TO LOWEST POINT. WILL MONITOR FREQUENTLY THROUGHOUT SHIFT.
[2022-09-19] MEDS ORDERED: CRUSHER, PILL MC ONE (20:33)
--- NOTE | 2022-09-19 21:00 | NUR ---
SCHEDULED MEDICATIONS ADMINISTERED. PT TOLERATED WELL, WILL CONTINUE TO MONITOR THE PT.
[2022-09-19 22:58] VITALS: BP 102/55
--- NOTE | 2022-09-20 02:06 | NUR ---
PT AWAKE AT THIS TIME. COMPLAINTS OF BURNING SENSATION IN LOWER ABDOMEN. WARM COMPRESS WAS APPLIED TO AFFECTED AREA. NO OTHER COMPLAINTS AT THIS TIME. PT IS STABLE, WILL CONTINUE TO MONITOR.
[2022-09-20 04:00] VITALS: BP 107/44
--- NOTE | 2022-09-20 06:21 | NUR ---
PT IN AND OUT OF SLEEP THROUGHOUT THE NIGHT. ONE VOID AND ONE BM NOTED. NO COMPLAINTS OF PAIN AT THIS TIME. WILL ENDORSE TO DAY SHIFT NURSE FOR CONTINUITY OF CARE.
[2022-09-20 07:09] LABS: BASOPHILS % (AUTO) 0.5 % (0.0-2.0); EOSINOPHILS # (AUTO) 0.2 K/uL (0-0.4); EOSINOPHILS % (AUTO) 2.9 % (0.0-4.0); HEMOGLOBIN 9.1 g/dL (12.0-16.0); LYMPHOCYTES % (AUTO) 35.9 % (20.5-51.1); MEAN CORPUSCULAR HEMOGLOBIN 30 pg (27-31); MEAN CORPUSCULAR HGB CONC 33 g/dL (33-37); MEAN CORPUSCULAR VOLUME 92.8 fL (80-94); MONOCYTES # (AUTO) 0.8 K/uL (0.8-1.0); MONOCYTES % (AUTO) 9.3 % (1.7-9.3); NEUTROPHILS # (AUTO) 4.3 K/uL (1.8-7.7); NEUTROPHILS % (AUTO) 51.4 % (42.2-75.2); PLATELET COUNT (AUTO) 216 K/uL (140-450); RED BLOOD CELL COUNT(AUTO) 3.02 MIL/uL (4.20-5.40); RED CELL DISTRIBUTION WIDTH 19.1 % (11.6-13.7); WHITE BLOOD COUNT (AUTO) 8.3 K/uL (4.8-10.8)
[2022-09-20 07:18] LABS: ANION GAP 18.3 (8-16); CARBON DIOXIDE 27.5 mmol/L (21-32); CHLORIDE 95 mmol/L (98-107); GLUCOSE 89 mg/dL (74-106); POTASSIUM 5.8 mmol/L (3.5-5.1); SODIUM SERUM 135 mmol/L (136-145)
--- NOTE | 2022-09-20 07:30 | NUR ---
RECEIVED REPORT FROM WASTE SALVAGER NURSE, RONNY, PT ON CONTACT ISO FOR ESBL OF URINE. ON ROOM AIR WITH CHEST RISING AND FALLING EVEN AND UNLABORED. ALL SAFETY MEASURES IN PLACE, CALL LIGHT WITHIN REACH.
[2022-09-20 07:40] LABS: CREATININE 10.4 mg/dL (0.6-1.3); UREA NITROGEN, BLOOD 64 mg/dL (7-18)
[2022-09-20 08:00] VITALS: BP 115/62
[2022-09-20] MEDS: hydrALAZINE 25 MG TAB PO SCH ×3 (08:03→17:00)
[2022-09-20] MEDS: ATORVASTATIN 20 MG TAB PO SCH (09:39)
[2022-09-20] MEDS: SULFAMETH/TRIMETH DS 800/160MG 1 TAB PO SCH (09:40)
[2022-09-20] MEDS: ASPIRIN 81 MG TAB.CHEW PO SCH (09:40)
[2022-09-20] MEDS: GABAPENTIN 100 MG CAP PO SCH ×3 (09:40→17:00)
--- NOTE | 2022-09-20 12:59 | NUR ---
PT COMPLETED HEMODIALYSIS, 1L REMOVED. PT ALERT ABLE TO MAKE NEEDS KNOWN, KAREN MEDICATION ADMINISTERED PER MD ORDER. KAREN HYDRALZINE HELD DUE TO DIALYSIS AND HYPOTENSION OF 100/58
--- NOTE | 2022-09-20 14:28 | NUR ---
RECEIVED A CALL FROM LALITO FROM [facility]. THE PT WILL BE PICKED UP AT 1800 VIA THE TRANSPORTATION SERVICE CALLED THE [facility] . VERIFIED IT WILL BE AARON CORNELL.
--- NOTE | 2022-09-20 14:32 | NUR ---
RECEIVED ORDER FOR PATIENT TO RETURN BACK TO SNF. FAXED ALL PAPERWORK TO [facility] LOCATED AT [address] [place], [place] [id number]. SPOKE WITH FRED PATIENT WAS ACCEPTED BACK WILL BE GOING TO ROOM [address] HARP. BARIATRIC GURNEY TRANSPORT WAS SET UP WITH [facility] WITH A 1800 ACTIVATED SLUDGE ATTENDANT TIME. INFORMED THEM TO NOTIFY NURSING STATION FOR UPDATED ETA AND COMPANY INFORMATION. NURSE RAUL AND SISTER KAVON AWARE OF THE ABOVE INFORMATION. RECEIVED A CALL FROM LALITO FROM [facility]. THE PT WILL BE PICKED UP AT 1800 VIA THE TRANSPORTATION SERVICE CALLED THE [facility] . VERIFIED IT WILL BE BARIATRIC JAMELRANITHA.
--- NOTE | 2022-09-20 17:01 | NUR ---
PT BP MEDICATION HELD DUE TO DECREASED BLOOD PRESSURE, KAREN GABAPENTIN NONADM DUE TO PT REFUSAL. FULL EDUCATION PROVIDED, INFORMED PT ITS A SCHEDULED MED THAT SHE TOOK EARLIER IN THE DAY. PT STATES SHE WANTS TO GO BACK TO HER FACILITY.
[2022-09-20] MEDS ORDERED: SULF-954 PO (18:01)
--- NOTE | 2022-09-20 18:01 | NUR ---
CALLED ERICK WHARTON RN, RECEIVED FULL REPORT REGARDING PTS RETURN TO ROOM [address] HARP. ALL QUESTIONS ANSWERED. LAST SET OF VITAL SIGNS PROVIDED. SISTERKAVON WAS CALLED AT ROUGHLY 1520 AND INFORMED REGARDING PTS DISCHARGE AND POC.
--- NOTE | 2022-09-20 18:29 | NUR ---
PT WAS PICKED UP IN STABLE CONDITION, ALL DISCHARGE PAPERWORK SIGNED BY PT WHO IS A&OX4. ALL QUESTIONS ANSWERED. IV REMOVED, CATH IN PLACE. ALL BELONGINGS AND DISCHARGE PAPER PROVIDED TO TRANSPORT PERSONNEL.
== END 2022-09-20 18:30 | DRG 280 ==
LOC: MED 23:28 → MTU 09-16 06:53
PROVIDERS: ADMIT Family Medicine; ATTEND Family Medicine
PROC: 5A1D70Z Performance of Urinary Filtration, Intermittent, Less than 6 Hours Per Day (ICD-10-PCS; principal; 2022-09-16)
PROC: 5A1D70Z Performance of Urinary Filtration, Intermittent, Less than 6 Hours Per Day (ICD-10-PCS; 2022-09-20)
DX: I13.2 Hypertensive heart and chronic kidney disease with heart failure and with stage 5 chronic kidney disease, or end stage renal disease (principal); G93.41 Metabolic encephalopathy; I21.A1 Myocardial infarction type 2; I50.43 Acute on chronic combined systolic (congestive) and diastolic (congestive) heart failure; N18.6 End stage renal disease; E87.5 Hyperkalemia; J45.909 Unspecified asthma, uncomplicated; E83.52 Hypercalcemia; D50.9 Iron deficiency anemia, unspecified; Z20.822 Contact with and (suspected) exposure to COVID-19; D63.1 Anemia in chronic kidney disease; Z87.440 Personal history of urinary (tract) infections; Z86.73 Personal history of transient ischemic attack (TIA), and cerebral infarction without residual deficits; Z88.0 Allergy status to penicillin; Z88.8 Allergy status to other drugs, medicaments and biological substances; Z88.6 Allergy status to analgesic agent; Z91.011 Allergy to milk products; Z79.899 Other long term (current) drug therapy
CPT/HCPCS: 36415; 70450; 71045; 73030; 80048; 80053; 83605; 83690; 83735; 83880; 84484; 85025; 87040; 87081; 87086; 93005; 96374; 99285; J0610; J1644; J2060; P9046; Q0092

== ENCOUNTER 2023-07-12 01:00 | Inpatient (IN) | payer OTHER ==
[~2023-07-12] VITALS: Ht 160 cm; Wt 90.7 kg
[2023-07-12] VITALS (9 sets, daily range): BP systolic 97–155; BP diastolic 54–87; PULSE 71–100; RESP 3–20; TEMP 97–97.9; O2SAT 94–100
[~2023-07-12 01:00] MED LIST changes: +AMLO10TA PO; -AMLO5TAB PO; -BACL10TA4 PO; -GABA100C PO; -MERO500V16 IV; -OLOP5DRO19 RIGHT EYE; -ONDA-188 SL
[2023-07-12 01:26] LABS: BASOPHILS % (AUTO) 0.7 % (0.0-2.0); EOSINOPHILS # (AUTO) 0.2 K/uL (0-0.4); EOSINOPHILS % (AUTO) 3.3 % (0.0-4.0); HEMATOCRIT 31.5 % (36-48); HEMOGLOBIN 10.4 g/dL (12.0-16.0); LYMPHOCYTES # (AUTO) 2.5 K/uL (2.5-16.5); LYMPHOCYTES % (AUTO) 41.1 % (20.5-51.1); MEAN CORPUSCULAR HEMOGLOBIN 34 pg (27-31); MEAN CORPUSCULAR HGB CONC 33 g/dL (33-37); MEAN CORPUSCULAR VOLUME 102.6 fL (80-94); MONOCYTES # (AUTO) 0.8 K/uL (0.8-1.0); MONOCYTES % (AUTO) 12.9 % (1.7-9.3); NEUTROPHILS # (AUTO) 2.5 K/uL (1.8-7.7); PLATELET COUNT (AUTO) 201 K/uL (140-450); RED BLOOD CELL COUNT(AUTO) 3.07 MIL/uL (4.20-5.40)
[2023-07-12 01:41] LABS: ANION GAP 12.2 (8-16); CALCIUM 11.7 mg/dL (8.5-10.1); CARBON DIOXIDE 33.4 mmol/L (21-32); CHLORIDE 97 mmol/L (98-107); GLUCOSE 111 mg/dL (74-106); POTASSIUM 3.6 mmol/L (3.5-5.1); SODIUM SERUM 139 mmol/L (136-145); UREA NITROGEN, BLOOD 35 mg/dL (7-18)
[2023-07-12 01:44] LABS: CREATININE 10.8 mg/dL (0.6-1.3)
[2023-07-12 01:50] LABS: ALANINE AMINOTRANSFERASE 24 U/L (12-78); ALBUMIN 2.9 g/dL (3.4-5.0); ALKALINE PHOSPHATASE 64 U/L (50-136); ASPARTATE AMINOTRANSFERASE 23 U/L (15-37); BILIRUBIN,DIRECT 0.3 mg/dL (0.0-0.3); TOTAL BILIRUBIN 0.7 mg/dL (0.0-1.0); TOTAL PROTEIN, SERUM 11.2 g/dL (6.4-8.2)
[2023-07-12 02:00] LABS: FLU A ANTIGEN negative (NEGATIVE); FLU B ANTIGEN NEGATIVE (NEGATIVE)
[2023-07-12] MEDS: LEVOFLOXACIN 500 MG/D5W PREMIX 100 ML IV ONE (02:50)
[2023-07-12] MEDS: NACL 0.9% 1,000 ML IV SCH (03:02)
[2023-07-12] MEDS: ONDANSETRON 4 MG/2 ML VIAL IVP ONE (03:57)
[2023-07-12] MEDS ORDERED: ACETAMINOPHEN 325 MG TAB PO PRN (05:50)
[2023-07-12] MEDS ORDERED: guaiFENesin DM 200/20 MG-10 ML 10 ML UDC PO PRN (05:50)
[2023-07-12] MEDS ORDERED: ZOLPIDEM 5 MG TAB PO PRN (05:50)
[2023-07-12] MEDS ORDERED: DOCUSATE SODIUM 100 MG GELCAP PO PRN (05:50)
[2023-07-12] MEDS ORDERED: POTASSIUM CHLORIDE 10 MEQ TABER PO PRN (05:50)
[2023-07-12] MEDS: ONDANSETRON 4 MG/2 ML VIAL IM/IVP PRN (08:29)
[2023-07-12] MEDS: PANTOPRAZOLE 40 MG TABEC PO SCH (09:56)
[2023-07-12 10:25] LABS: ALANINE AMINOTRANSFERASE 23 U/L (12-78); ALBUMIN 2.8 g/dL (3.4-5.0); ALKALINE PHOSPHATASE 59 U/L (50-136); ANION GAP 14.5 (8-16); ASPARTATE AMINOTRANSFERASE 22 U/L (15-37); CALCIUM 10.9 mg/dL (8.5-10.1); CARBON DIOXIDE 31.1 mmol/L (21-32); CHLORIDE 98 mmol/L (98-107); GLUCOSE 89 mg/dL (74-106); POTASSIUM 3.6 mmol/L (3.5-5.1); SODIUM SERUM 140 mmol/L (136-145); TOTAL BILIRUBIN 0.6 mg/dL (0.0-1.0); TOTAL PROTEIN, SERUM 10.9 g/dL (6.4-8.2); UREA NITROGEN, BLOOD 21 mg/dL (7-18)
[2023-07-12] MEDS: METOCLOPRAMIDE 10 MG/2 ML INJ VIAL IVP PRN (11:27)
[2023-07-12] MEDS ORDERED: RENAL DOSING PER PHARMACY MC PRN (12:05)
[2023-07-12] MEDS ORDERED: MEROPENEM 500 MG in NACL 0.9% 50 ML IV SCH (21:00)
[2023-07-12] MEDS: MEROPENEM 1,000 MG in NACL 0.9% 50 ML IV SCH (21:54)
[2023-07-12] MEDS ORDERED: INSULIN LISPRO SLIDING SCALE 100 UNITS/ML VIAL SUBQ PRN (22:35)
[2023-07-13] VITALS (11 sets, daily range): BP systolic 82–109; BP diastolic 45–79; PULSE 75–88; RESP 18–20; TEMP 97.1–98.5; O2SAT 97–100
[2023-07-13] MEDS: BLOOD GLUCOSE MONITORING 1 DEV DEV FS SCH (06:36)
[2023-07-13 07:14] LABS: BASOPHILS % (AUTO) 0.4 % (0.0-2.0); EOSINOPHILS # (AUTO) 0.1 K/uL (0-0.4); HEMATOCRIT 31.6 % (36-48); HEMOGLOBIN 10.7 g/dL (12.0-16.0); LYMPHOCYTES # (AUTO) 2.1 K/uL (2.5-16.5); LYMPHOCYTES % (AUTO) 28.1 % (20.5-51.1); MEAN CORPUSCULAR HEMOGLOBIN 35 pg (27-31); MEAN CORPUSCULAR HGB CONC 34 g/dL (33-37); MEAN CORPUSCULAR VOLUME 103.5 fL (80-94); MONOCYTES # (AUTO) 0.8 K/uL (0.8-1.0); MONOCYTES % (AUTO) 10.7 % (1.7-9.3); NEUTROPHILS # (AUTO) 4.3 K/uL (1.8-7.7); NEUTROPHILS % (AUTO) 58.8 % (42.2-75.2); PLATELET COUNT (AUTO) 183 K/uL (140-450); RED BLOOD CELL COUNT(AUTO) 3.05 MIL/uL (4.20-5.40); RED CELL DISTRIBUTION WIDTH 17.3 % (11.6-13.7); WHITE BLOOD COUNT (AUTO) 7.4 K/uL (4.8-10.8)
[2023-07-13 07:24] LABS: ALANINE AMINOTRANSFERASE 25 U/L (12-78); ALKALINE PHOSPHATASE 63 U/L (50-136); ANION GAP 15.2 (8-16); ASPARTATE AMINOTRANSFERASE 20 U/L (15-37); CARBON DIOXIDE 30.9 mmol/L (21-32); CHLORIDE 97 mmol/L (98-107); GLUCOSE 85 mg/dL (74-106); POTASSIUM 4.1 mmol/L (3.5-5.1); SODIUM SERUM 139 mmol/L (136-145); TOTAL BILIRUBIN 0.7 mg/dL (0.0-1.0); TOTAL PROTEIN, SERUM 11.8 g/dL (6.4-8.2); UREA NITROGEN, BLOOD 26 mg/dL (7-18)
[2023-07-13 08:04] LABS: CREATININE 8.9 mg/dL (0.6-1.3)
[2023-07-13] MEDS: DEXTROSE 50% 50 ML SYR IVP PRN (12:59)
[2023-07-13] MEDS: MIDODRINE 5 MG TAB PO SCH (20:27)
[2023-07-14] VITALS (9 sets, daily range): BP systolic 87–125; BP diastolic 48–67; PULSE 71–101; RESP 18–20; TEMP 96–97; O2SAT 94–100
[2023-07-14 07:09] LABS: BASOPHILS % (AUTO) 0.2 % (0.0-2.0); EOSINOPHILS # (AUTO) 0.2 K/uL (0-0.4); EOSINOPHILS % (AUTO) 2.4 % (0.0-4.0); HEMATOCRIT 30.3 % (36-48); HEMOGLOBIN 10.2 g/dL (12.0-16.0); LYMPHOCYTES # (AUTO) 3.1 K/uL (2.5-16.5); LYMPHOCYTES % (AUTO) 37.6 % (20.5-51.1); MEAN CORPUSCULAR HEMOGLOBIN 35 pg (27-31); MEAN CORPUSCULAR HGB CONC 34 g/dL (33-37); MEAN CORPUSCULAR VOLUME 103.3 fL (80-94); MONOCYTES % (AUTO) 11.8 % (1.7-9.3); PLATELET COUNT (AUTO) 196 K/uL (140-450); RED BLOOD CELL COUNT(AUTO) 2.94 MIL/uL (4.20-5.40); RED CELL DISTRIBUTION WIDTH 17.1 % (11.6-13.7); WHITE BLOOD COUNT (AUTO) 8.3 K/uL (4.8-10.8)
[2023-07-14 07:31] LABS: ALANINE AMINOTRANSFERASE 25 U/L (12-78); ALBUMIN 2.9 g/dL (3.4-5.0); ALKALINE PHOSPHATASE 60 U/L (50-136); ANION GAP 17.4 (8-16); ASPARTATE AMINOTRANSFERASE 19 U/L (15-37); CARBON DIOXIDE 29.9 mmol/L (21-32); CHLORIDE 97 mmol/L (98-107); GLUCOSE 94 mg/dL (74-106); POTASSIUM 4.3 mmol/L (3.5-5.1); SODIUM SERUM 140 mmol/L (136-145); TOTAL BILIRUBIN 0.6 mg/dL (0.0-1.0); TOTAL PROTEIN, SERUM 11.4 g/dL (6.4-8.2); UREA NITROGEN, BLOOD 34 mg/dL (7-18)
[2023-07-14 07:36] LABS: CREATININE 10.6 mg/dL (0.6-1.3)
[2023-07-14] MEDS: ALBUMIN HUMAN 25% 100 ML IV ONE (11:40)
[2023-07-14] MEDS: ALBUMIN HUMAN 25% 200 ML IV SCH (14:25)
[2023-07-15] VITALS: BP 112/67; PULSE 75; PULSE 82; RESP 19; TEMP 96.6; O2SAT 95
[2023-07-15 04:00] VITALS: BP 105/55; PULSE 81; PULSE 83; RESP 18; TEMP 96.9; O2SAT 94
[2023-07-15 07:17] LABS: BASOPHILS % (AUTO) 0.2 % (0.0-2.0); EOSINOPHILS # (AUTO) 0.2 K/uL (0-0.4); EOSINOPHILS % (AUTO) 2.8 % (0.0-4.0); HEMATOCRIT 28.6 % (36-48); HEMOGLOBIN 9.6 g/dL (12.0-16.0); LYMPHOCYTES # (AUTO) 2.8 K/uL (2.5-16.5); LYMPHOCYTES % (AUTO) 33.1 % (20.5-51.1); MEAN CORPUSCULAR HEMOGLOBIN 35 pg (27-31); MEAN CORPUSCULAR HGB CONC 34 g/dL (33-37); MEAN CORPUSCULAR VOLUME 103.5 fL (80-94); MONOCYTES # (AUTO) 0.5 K/uL (0.8-1.0); MONOCYTES % (AUTO) 6.4 % (1.7-9.3); NEUTROPHILS # (AUTO) 4.8 K/uL (1.8-7.7); NEUTROPHILS % (AUTO) 57.5 % (42.2-75.2); PLATELET COUNT (AUTO) 176 K/uL (140-450); RED BLOOD CELL COUNT(AUTO) 2.76 MIL/uL (4.20-5.40); RED CELL DISTRIBUTION WIDTH 17.1 % (11.6-13.7); WHITE BLOOD COUNT (AUTO) 8.3 K/uL (4.8-10.8)
[2023-07-15 07:55] LABS: ALANINE AMINOTRANSFERASE 19 U/L (12-78); ALBUMIN 3.9 g/dL (3.4-5.0); ALKALINE PHOSPHATASE 56 U/L (50-136); ANION GAP 18.2 (8-16); ASPARTATE AMINOTRANSFERASE 23 U/L (15-37); CALCIUM 11.9 mg/dL (8.5-10.1); CARBON DIOXIDE 29.5 mmol/L (21-32); CHLORIDE 93 mmol/L (98-107); GLUCOSE 130 mg/dL (74-106); POTASSIUM 3.7 mmol/L (3.5-5.1); SODIUM SERUM 137 mmol/L (136-145); TOTAL BILIRUBIN 0.9 mg/dL (0.0-1.0); UREA NITROGEN, BLOOD 22 mg/dL (7-18)
[2023-07-15 08:00] VITALS: BP 116/74; PULSE 84; PULSE 85; RESP 18; TEMP 98.2; O2SAT 92; O2SAT 97
[2023-07-15 08:02] LABS: CREATININE 7.6 mg/dL (0.6-1.3)
[2023-07-15] MEDS: LACTOBACILLUS RHAMNOSUS GG 1 EACH CAP PO SCH (09:23)
[2023-07-15 12:00] VITALS: BP 119/59; PULSE 84; PULSE 93; RESP 18; TEMP 97.9; O2SAT 100
[2023-07-15] MEDS ORDERED: PRO5 PO (13:06)
[2023-07-15] MEDS ORDERED: LACT10CA PO (13:06)
[2023-07-15 16:00] VITALS: BP 111/53; PULSE 83; PULSE 87; RESP 18; TEMP 98.5; O2SAT 100
[2023-07-15] MEDS ORDERED: ERTA1VIA2 IV (16:30)
== END 2023-07-15 18:00 | DRG 70 ==
LOC: MED 01:00 → MTU 05:52
PROVIDERS: ADMIT Student in an Organized Health Care Education/Training Program; ATTEND Student in an Organized Health Care Education/Training Program
PROC: 5A1D70Z Performance of Urinary Filtration, Intermittent, Less than 6 Hours Per Day (ICD-10-PCS; principal; 2023-07-12)
DX: G93.41 Metabolic encephalopathy (principal); N18.6 End stage renal disease; I13.2 Hypertensive heart and chronic kidney disease with heart failure and with stage 5 chronic kidney disease, or end stage renal disease; Z20.822 Contact with and (suspected) exposure to COVID-19; J45.909 Unspecified asthma, uncomplicated; D53.9 Nutritional anemia, unspecified; E11.22 Type 2 diabetes mellitus with diabetic chronic kidney disease; I50.9 Heart failure, unspecified; Z99.2 Dependence on renal dialysis; Z88.5 Allergy status to narcotic agent; Z88.0 Allergy status to penicillin; Z91.011 Allergy to milk products; Z86.73 Personal history of transient ischemic attack (TIA), and cerebral infarction without residual deficits; J11.1 Influenza due to unidentified influenza virus with other respiratory manifestations
CPT/HCPCS: 36415; 70450; 71045; 74150; 76705; 80048; 80053; 80076; 82948; 83605; 83880; 84484; 85025; 87040; 87081; 92526; 93005; 96365; 96375; 99285; J0694; J1815; J1956; J2185; J2405; J2765; J7060; P9046; Q0092

== ENCOUNTER 2023-07-17 14:15 | Emergency (ER) | payer OTHER ==
[~2023-07-17] VITALS: Ht 154.9 cm; Wt 123.4 kg
[~2023-07-17 14:15] MED LIST changes: -AMLO10TA PO; +ERTA1VIA2 IV; -FURO-572 PO; -HYDR-1098 PO; +LACT10CA PO; -OLOP5DRO19 LEFT EYE; +PRO5 PO
[2023-07-17] MEDS ORDERED: LEVOFLOXACIN 500 MG/D5W PREMIX 100 ML IV ONE (14:20)
[2023-07-17] MEDS ORDERED: NACL 0.9% 1,000 ML IV SCH (14:20)
[2023-07-17 14:30] VITALS: BP 98/62; PULSE 91; RESP 14; TEMP 97.1; O2SAT 95
[2023-07-17 15:31] LABS: ANION GAP 14.6 (8-16); CALCIUM 11.2 mg/dL (8.5-10.1); CARBON DIOXIDE 31.3 mmol/L (21-32); CHLORIDE 95 mmol/L (98-107); GLUCOSE 90 mg/dL (74-106); POTASSIUM 3.9 mmol/L (3.5-5.1); SODIUM SERUM 137 mmol/L (136-145); UREA NITROGEN, BLOOD 23 mg/dL (7-18)
[2023-07-17 15:34] LABS: CREATININE 6.8 mg/dL (0.6-1.3)
[2023-07-17 15:41] LABS: LACTIC ACID 1.1 mmol/L (0.4-2.0)
[2023-07-17 16:31] LABS: BASOPHILS # (AUTO) 0.1 K/uL (0.00-0.22); BASOPHILS % (AUTO) 0.7 % (0.0-2.0); EOSINOPHILS # (AUTO) 0.3 K/uL (0-0.4); HEMATOCRIT 28.4 % (36-48); HEMOGLOBIN 9.6 g/dL (12.0-16.0); LYMPHOCYTES # (AUTO) 3.6 K/uL (2.5-16.5); LYMPHOCYTES % (AUTO) 42.4 % (20.5-51.1); MEAN CORPUSCULAR HEMOGLOBIN 35 pg (27-31); MEAN CORPUSCULAR HGB CONC 34 g/dL (33-37); MEAN CORPUSCULAR VOLUME 102.2 fL (80-94); MONOCYTES # (AUTO) 0.8 K/uL (0.8-1.0); NEUTROPHILS # (AUTO) 3.8 K/uL (1.8-7.7); NEUTROPHILS % (AUTO) 44.9 % (42.2-75.2); PLATELET COUNT (AUTO) 181 K/uL (140-450); RED BLOOD CELL COUNT(AUTO) 2.78 MIL/uL (4.20-5.40); WHITE BLOOD COUNT (AUTO) 8.4 K/uL (4.8-10.8)
[2023-07-17 18:09] LABS: FLU A ANTIGEN negative (NEGATIVE)
[2023-07-17 18:10] LABS: FLU B ANTIGEN NEGATIVE (NEGATIVE)
[2023-07-17 23:55] VITALS: O2SAT 95
[2023-07-18 03:57] VITALS: O2SAT 95
[2023-07-18 06:04] VITALS: O2SAT 98
[2023-07-18 09:36] VITALS: BP 134/69; PULSE 94; RESP 17; TEMP 97.1; O2SAT 98
== END 2023-07-18 09:20 ==
LOC: MED 14:15
DX: I95.9 Hypotension, unspecified (principal); Z20.822 Contact with and (suspected) exposure to COVID-19; E11.22 Type 2 diabetes mellitus with diabetic chronic kidney disease; I13.2 Hypertensive heart and chronic kidney disease with heart failure and with stage 5 chronic kidney disease, or end stage renal disease; N18.6 End stage renal disease; I50.9 Heart failure, unspecified; Z99.2 Dependence on renal dialysis; Z86.73 Personal history of transient ischemic attack (TIA), and cerebral infarction without residual deficits; Z79.899 Other long term (current) drug therapy; Z79.82 Long term (current) use of aspirin; Z91.011 Allergy to milk products; Z88.0 Allergy status to penicillin; Z88.5 Allergy status to narcotic agent
CPT/HCPCS: 36415; 71045; 80048; 83605; 83880; 84484; 85025; 87040; 87426; 87804; 93005; 96361; 96365; 96366; 99285; J1956; J7030; Q0092

== ENCOUNTER 2023-07-28 17:55 | Inpatient (IN) | payer OTHER ==
[~2023-07-28] VITALS: Ht 165.1 cm; Wt 99.8 kg
[2023-07-28 18:14] VITALS: BP 116/63; PULSE 74; RESP 18; TEMP 97.8; O2SAT 96
[2023-07-28 19:32] LABS: BASOPHILS % (AUTO) 0.5 % (0.0-2.0); EOSINOPHILS # (AUTO) 0.2 K/uL (0-0.4); EOSINOPHILS % (AUTO) 3.1 % (0.0-4.0); HEMATOCRIT 23.3 % (36-48); HEMOGLOBIN 7.8 g/dL (12.0-16.0); LYMPHOCYTES # (AUTO) 2.9 K/uL (2.5-16.5); LYMPHOCYTES % (AUTO) 41.4 % (20.5-51.1); MEAN CORPUSCULAR HEMOGLOBIN 35 pg (27-31); MEAN CORPUSCULAR HGB CONC 34 g/dL (33-37); MEAN CORPUSCULAR VOLUME 103.8 fL (80-94); MONOCYTES # (AUTO) 0.9 K/uL (0.8-1.0); MONOCYTES % (AUTO) 12.2 % (1.7-9.3); NEUTROPHILS % (AUTO) 42.8 % (42.2-75.2); PLATELET COUNT (AUTO) 198 K/uL (140-450); RED BLOOD CELL COUNT(AUTO) 2.25 MIL/uL (4.20-5.40)
[2023-07-28 19:40] LABS: ANION GAP 7.3 (8-16); CALCIUM 9.4 mg/dL (8.5-10.1); CARBON DIOXIDE 36.1 mmol/L (21-32); CHLORIDE 102 mmol/L (98-107); CREATININE 3.8 mg/dL (0.6-1.3); GLUCOSE 107 mg/dL (74-106); POTASSIUM 3.4 mmol/L (3.5-5.1); SODIUM SERUM 142 mmol/L (136-145); UREA NITROGEN, BLOOD 10 mg/dL (7-18)
[2023-07-28 19:59] LABS: ALANINE AMINOTRANSFERASE 13 U/L (12-78); ALBUMIN 2.6 g/dL (3.4-5.0); ALKALINE PHOSPHATASE 54 U/L (50-136); ASPARTATE AMINOTRANSFERASE 22 U/L (15-37); BILIRUBIN,DIRECT 0.2 mg/dL (0.0-0.3); CREATINE KINASE, TOTAL 35 U/L (26-192); TOTAL BILIRUBIN 0.5 mg/dL (0.0-1.0); TOTAL PROTEIN, SERUM 8.7 g/dL (6.4-8.2)
[2023-07-28 20:02] LABS: FLU A ANTIGEN negative (NEGATIVE); FLU B ANTIGEN NEGATIVE (NEGATIVE)
[2023-07-28 20:16] LABS: INR 0.99 (0.8-1.2); PROTHROMBIN TIME 10.4 secs (10.8-13.4)
[2023-07-28] MEDS: MIDODRINE 5 MG TAB PO SCH (21:50)
[2023-07-28] MEDS ORDERED: LORazepam 1 MG TAB PO PRN (23:15)
[2023-07-28] MEDS ORDERED: ZOLPIDEM 5 MG TAB PO PRN (23:15)
[2023-07-28] MEDS ORDERED: ONDANSETRON 4 MG/2 ML VIAL IVP PRN (23:15)
[2023-07-29] MEDS ORDERED: MIRABULK PO (03:26)
[2023-07-29] MEDS ORDERED: NA P133E RC (03:26)
[2023-07-29] MEDS ORDERED: DOCU-299 PO (03:26)
[2023-07-29] MEDS ORDERED: LACT-85 PO ×2 (03:26)
[2023-07-29] MEDS ORDERED: SEVE800T6 PO (03:26)
[2023-07-29 05:36] LABS: BASOPHILS % (AUTO) 0.5 % (0.0-2.0); EOSINOPHILS # (AUTO) 0.2 K/uL (0-0.4); EOSINOPHILS % (AUTO) 3.9 % (0.0-4.0); HEMATOCRIT 22.6 % (36-48); HEMOGLOBIN 7.7 g/dL (12.0-16.0); LYMPHOCYTES # (AUTO) 2.6 K/uL (2.5-16.5); LYMPHOCYTES % (AUTO) 40.8 % (20.5-51.1); MEAN CORPUSCULAR HEMOGLOBIN 35 pg (27-31); MEAN CORPUSCULAR HGB CONC 34 g/dL (33-37); MEAN CORPUSCULAR VOLUME 103.6 fL (80-94); MONOCYTES # (AUTO) 0.7 K/uL (0.8-1.0); MONOCYTES % (AUTO) 10.3 % (1.7-9.3); NEUTROPHILS # (AUTO) 2.8 K/uL (1.8-7.7); NEUTROPHILS % (AUTO) 44.5 % (42.2-75.2); PLATELET COUNT (AUTO) 192 K/uL (140-450); RED BLOOD CELL COUNT(AUTO) 2.18 MIL/uL (4.20-5.40); RED CELL DISTRIBUTION WIDTH 16.2 % (11.6-13.7); WHITE BLOOD COUNT (AUTO) 6.4 K/uL (4.8-10.8)
[2023-07-29 06:19] LABS: ALANINE AMINOTRANSFERASE 11 U/L (12-78); ALBUMIN 2.4 g/dL (3.4-5.0); ALKALINE PHOSPHATASE 57 U/L (50-136); ANION GAP 11.1 (8-16); ASPARTATE AMINOTRANSFERASE 17 U/L (15-37); CALCIUM 9.4 mg/dL (8.5-10.1); CARBON DIOXIDE 33.3 mmol/L (21-32); CHLORIDE 101 mmol/L (98-107); GLUCOSE 91 mg/dL (74-106); POTASSIUM 3.4 mmol/L (3.5-5.1); SODIUM SERUM 142 mmol/L (136-145); TOTAL BILIRUBIN 0.5 mg/dL (0.0-1.0); TOTAL PROTEIN, SERUM 9.4 g/dL (6.4-8.2); UREA NITROGEN, BLOOD 14 mg/dL (7-18)
[2023-07-29 06:29] LABS: CREATININE 4.7 mg/dL (0.6-1.3)
[2023-07-29 08:00] VITALS: TEMP 98.1
[2023-07-29 08:15] VITALS: PULSE 89; RESP 18; O2SAT 97
[2023-07-29] MEDS ORDERED: MIDODRINE 5 MG TAB PO PRN (10:30)
[2023-07-29] MEDS ORDERED: NYSTATIN POW 100 MU/GM 15 GM BTL TP PRN (10:50)
[2023-07-29] MEDS ORDERED: FOAM DRESSING TP PRN (10:50)
[2023-07-29] MEDS ORDERED: NON ADHERENT DRESSING TP PRN (10:50)
[2023-07-29] MEDS: ASPIRIN 81 MG TAB.CHEW PO SCH (11:28)
[2023-07-29] MEDS: ATORVASTATIN 20 MG TAB PO SCH (11:28)
[2023-07-29 12:00] VITALS: BP 125/80; PULSE 82; RESP 18; TEMP 98.6; O2SAT 96
[2023-07-29] MEDS: POTASSIUM CHLORIDE 10 MEQ TABER PO SCH (12:19)
[2023-07-29] MEDS: NON ADHERENT DRESSING TP SCH (13:00)
[2023-07-29] MEDS: FOAM DRESSING TP SCH (13:00)
[2023-07-29] MEDS: NYSTATIN POW 100 MU/GM 15 GM BTL TP SCH (14:42)
[2023-07-29] MEDS: EPOETIN ALFA-EPBX 10,000 UNITS/ML VIAL IV SCH (15:51)
[2023-07-29 16:00] VITALS: BP 128/75; PULSE 80; RESP 18; TEMP 97.8; O2SAT 97
[2023-07-29 20:00] VITALS: BP 142/69; PULSE 82; PULSE 84; RESP 18; TEMP 98.1; O2SAT 95
[2023-07-30] VITALS: BP 133/63; PULSE 78; RESP 18; TEMP 98.5; O2SAT 98
[2023-07-30 06:48] LABS: BASOPHILS % (AUTO) 0.4 % (0.0-2.0); EOSINOPHILS # (AUTO) 0.2 K/uL (0-0.4); EOSINOPHILS % (AUTO) 4.3 % (0.0-4.0); HEMATOCRIT 23.8 % (36-48); HEMOGLOBIN 8.1 g/dL (12.0-16.0); LYMPHOCYTES # (AUTO) 2.4 K/uL (2.5-16.5); LYMPHOCYTES % (AUTO) 42.8 % (20.5-51.1); MEAN CORPUSCULAR HEMOGLOBIN 35 pg (27-31); MEAN CORPUSCULAR HGB CONC 34 g/dL (33-37); MEAN CORPUSCULAR VOLUME 102.9 fL (80-94); MONOCYTES # (AUTO) 0.5 K/uL (0.8-1.0); MONOCYTES % (AUTO) 9.5 % (1.7-9.3); NEUTROPHILS # (AUTO) 2.4 K/uL (1.8-7.7); PLATELET COUNT (AUTO) 196 K/uL (140-450); RED BLOOD CELL COUNT(AUTO) 2.31 MIL/uL (4.20-5.40); RED CELL DISTRIBUTION WIDTH 16.1 % (11.6-13.7); WHITE BLOOD COUNT (AUTO) 5.7 K/uL (4.8-10.8)
[2023-07-30 07:13] LABS: ALANINE AMINOTRANSFERASE 11 U/L (12-78); ALBUMIN 2.4 g/dL (3.4-5.0); ALKALINE PHOSPHATASE 58 U/L (50-136); ANION GAP 11.5 (8-16); ASPARTATE AMINOTRANSFERASE 18 U/L (15-37); CALCIUM 9.8 mg/dL (8.5-10.1); CARBON DIOXIDE 32.3 mmol/L (21-32); CHLORIDE 100 mmol/L (98-107); GLUCOSE 87 mg/dL (74-106); POTASSIUM 3.8 mmol/L (3.5-5.1); SODIUM SERUM 140 mmol/L (136-145); TOTAL BILIRUBIN 0.5 mg/dL (0.0-1.0); TOTAL PROTEIN, SERUM 9.3 g/dL (6.4-8.2); UREA NITROGEN, BLOOD 27 mg/dL (7-18)
[2023-07-30 07:59] LABS: CREATININE 6.6 mg/dL (0.6-1.3)
[2023-07-30 08:00] VITALS: BP 116/83; PULSE 82; PULSE 95; RESP 20; TEMP 97.7; O2SAT 95; O2SAT 97
[2023-07-30] MEDS ORDERED: ASPIRIN 81 MG TAB.CHEW PO SCH (09:00)
[2023-07-30] MEDS ORDERED: ATORVASTATIN 20 MG TAB PO SCH (09:00)
[2023-07-30 12:00] VITALS: BP 116/83; PULSE 95; RESP 20; TEMP 97.7; O2SAT 97
[2023-07-30 16:00] VITALS: BP 140/56; PULSE 82; RESP 20; TEMP 98.6; O2SAT 99
[2023-07-30 20:00] VITALS: BP 100/52; PULSE 94; RESP 20; TEMP 96.9; O2SAT 96
[2023-07-30] MEDS: ACETAMINOPHEN 325 MG TAB PO PRN (23:14)
[2023-07-31 04:00] VITALS: BP 119/62; PULSE 83; RESP 18; TEMP 97.2; O2SAT 95
[2023-07-31 07:17] LABS: BASOPHILS % (AUTO) 0.3 % (0.0-2.0); EOSINOPHILS # (AUTO) 0.2 K/uL (0-0.4); EOSINOPHILS % (AUTO) 2.6 % (0.0-4.0); HEMATOCRIT 21.7 % (36-48); HEMOGLOBIN 7.3 g/dL (12.0-16.0); LYMPHOCYTES # (AUTO) 2.8 K/uL (2.5-16.5); LYMPHOCYTES % (AUTO) 35.9 % (20.5-51.1); MEAN CORPUSCULAR HEMOGLOBIN 35 pg (27-31); MEAN CORPUSCULAR HGB CONC 34 g/dL (33-37); MONOCYTES # (AUTO) 0.7 K/uL (0.8-1.0); MONOCYTES % (AUTO) 8.5 % (1.7-9.3); NEUTROPHILS # (AUTO) 4.1 K/uL (1.8-7.7); NEUTROPHILS % (AUTO) 52.7 % (42.2-75.2); PLATELET COUNT (AUTO) 176 K/uL (140-450); RED BLOOD CELL COUNT(AUTO) 2.11 MIL/uL (4.20-5.40); RED CELL DISTRIBUTION WIDTH 16.1 % (11.6-13.7); WHITE BLOOD COUNT (AUTO) 7.9 K/uL (4.8-10.8)
[2023-07-31 07:28] LABS: ALANINE AMINOTRANSFERASE 15 U/L (12-78); ALBUMIN 2.5 g/dL (3.4-5.0); ALKALINE PHOSPHATASE 62 U/L (50-136); ANION GAP 12.6 (8-16); ASPARTATE AMINOTRANSFERASE 22 U/L (15-37); CALCIUM 9.2 mg/dL (8.5-10.1); CARBON DIOXIDE 28.9 mmol/L (21-32); CHLORIDE 98 mmol/L (98-107); GLUCOSE 96 mg/dL (74-106); POTASSIUM 3.5 mmol/L (3.5-5.1); SODIUM SERUM 136 mmol/L (136-145); TOTAL BILIRUBIN 0.4 mg/dL (0.0-1.0); TOTAL PROTEIN, SERUM 9.4 g/dL (6.4-8.2); UREA NITROGEN, BLOOD 29 mg/dL (7-18)
[2023-07-31 07:50] LABS: CREATININE 6.8 mg/dL (0.6-1.3)
[2023-07-31 08:00] VITALS: BP 123/69; PULSE 84; RESP 20; TEMP 98.5; O2SAT 97; O2SAT 99
[2023-07-31 20:00] VITALS: PULSE 84; RESP 20; TEMP 98.5; O2SAT 99
[2023-07-31] MEDS: ARIPiprazole 10 MG TAB PO SCH (20:00)
[2023-08-01 08:00] VITALS: PULSE 84; RESP 20; TEMP 98.7; O2SAT 99
[2023-08-01 16:16] VITALS: BP 125/70; PULSE 88; RESP 18; TEMP 98.6
== END 2023-08-01 16:40 | DRG 682 ==
LOC: MED 17:55 → MTU 23:17
PROVIDERS: ADMIT Student in an Organized Health Care Education/Training Program; ATTEND Student in an Organized Health Care Education/Training Program
PROC: 5A1D70Z Performance of Urinary Filtration, Intermittent, Less than 6 Hours Per Day (ICD-10-PCS; principal; 2023-07-30)
DX: I12.0 Hypertensive chronic kidney disease with stage 5 chronic kidney disease or end stage renal disease (principal); G93.41 Metabolic encephalopathy; N18.6 End stage renal disease; R53.2 Functional quadriplegia; Z20.822 Contact with and (suspected) exposure to COVID-19; F03.90 Unspecified dementia, unspecified severity, without behavioral disturbance, psychotic disturbance, mood disturbance, and anxiety; D63.1 Anemia in chronic kidney disease; I95.9 Hypotension, unspecified; E66.9 Obesity, unspecified; E11.22 Type 2 diabetes mellitus with diabetic chronic kidney disease; Z96.653 Presence of artificial knee joint, bilateral; Z99.2 Dependence on renal dialysis; Z88.0 Allergy status to penicillin; Z88.5 Allergy status to narcotic agent; Z91.011 Allergy to milk products; Z86.73 Personal history of transient ischemic attack (TIA), and cerebral infarction without residual deficits; Z87.440 Personal history of urinary (tract) infections; Z68.36 Body mass index [BMI] 36.0-36.9, adult
CPT/HCPCS: 36415; 71045; 80048; 80053; 80076; 82550; 83036; 83605; 83880; 84484; 85025; 85610; 85730; 87040; 87081; 93005; 97163-GP; 97530; 99285; J1644; Q5106

== ENCOUNTER 2023-11-16 14:16 | Inpatient (IN) | payer OTHER ==
[~2023-11-16] VITALS: Ht 160 cm; Wt 63.5 kg
[~2023-11-16 14:16] MED LIST changes: +AZIT250T4 PO; +DOCU-299 PO; -ERTA1VIA2 IV; +LACT-85 PO; +MIRABULK PO; +NA P133E RC; +PRED20TA5 PO; +SEVE800T6 PO
[2023-11-16 14:21] VITALS: BP 108/64; PULSE 90; RESP 18; TEMP 97.9; O2SAT 99
[2023-11-16] MEDS: LEVOFLOXACIN 500 MG/D5W PREMIX 100 ML IV ONE (14:25)
[2023-11-16 15:50] LABS: BASOPHILS % (AUTO) 0.8 % (0.0-2.0); EOSINOPHILS # (AUTO) 0.1 K/uL (0-0.4); EOSINOPHILS % (AUTO) 2.9 % (0.0-4.0); HEMATOCRIT 26.8 % (36-48); HEMOGLOBIN 8.8 g/dL (12.0-16.0); LYMPHOCYTES # (AUTO) 1.9 K/uL (2.5-16.5); LYMPHOCYTES % (AUTO) 37.4 % (20.5-51.1); MEAN CORPUSCULAR HEMOGLOBIN 34 pg (27-31); MEAN CORPUSCULAR HGB CONC 33 g/dL (33-37); MEAN CORPUSCULAR VOLUME 104.1 fL (80-94); MONOCYTES # (AUTO) 0.5 K/uL (0.8-1.0); MONOCYTES % (AUTO) 8.7 % (1.7-9.3); NEUTROPHILS # (AUTO) 2.6 K/uL (1.8-7.7); NEUTROPHILS % (AUTO) 50.2 % (42.2-75.2); PLATELET COUNT (AUTO) 177 K/uL (140-450); RED BLOOD CELL COUNT(AUTO) 2.57 MIL/uL (4.20-5.40); RED CELL DISTRIBUTION WIDTH 17.4 % (11.6-13.7); WHITE BLOOD COUNT (AUTO) 5.2 K/uL (4.8-10.8)
[2023-11-16 16:04] LABS: ANION GAP 13.6 (8-16); CALCIUM 10.9 mg/dL (8.5-10.1); CARBON DIOXIDE 31.3 mmol/L (21-32); CHLORIDE 94 mmol/L (98-107); GLUCOSE 89 mg/dL (74-106); POTASSIUM 3.9 mmol/L (3.5-5.1); SODIUM SERUM 135 mmol/L (136-145); UREA NITROGEN, BLOOD 17 mg/dL (7-18)
[2023-11-16 16:06] LABS: APPEARANCE,URINE TURBID (CLEAR); BILIRUBIN,URINE 1+ (NEGATIVE); BLOOD, URINE 3+ (NEGATIVE); COLOR,URINE YELLOW (YELLOW); LEUKOCYTE ESTERASE ,URINE 2+ (NEGATIVE); NITRITE, URINE NEGATIVE (NEGATIVE); PH,URINE 6.5 (5.0-9.0); PROTEIN,URINE 3+ (NEGATIVE); UGLUCOSE NEGATIVE (NEGATIVE); UROBILINOGEN,URINE 0.2 EU/dL (0.2 - 1)
[2023-11-16 16:14] LABS: LACTIC ACID 1.4 mmol/L (0.4-2.0)
[2023-11-16 16:38] LABS: BACTERIA,URINE FEW /HPF (None Seen); RBC,URINE 0-5 /HPF (0-5); SQUAMOUS EPITHELIAL CELL,UR 4-10 (MOD) /LPF (0-3 (FEW)); WBC,URINE TOO MANY TO COUNT /HPF (0-5)
[2023-11-16 16:39] LABS: ICTOTEST NEGATIVE (NEGATIVE)
[2023-11-16 16:44] LABS: FLU A ANTIGEN negative (NEGATIVE); FLU B ANTIGEN NEGATIVE (NEGATIVE)
[2023-11-16] MEDS ORDERED: ONDANSETRON 4 MG/2 ML VIAL IVP PRN (17:00)
[2023-11-16] MEDS ORDERED: ACETAMINOPHEN 325 MG TAB PO PRN (17:00)
[2023-11-16] MEDS ORDERED: KCL 20 MEQ IN 100 mL PREMIX 200 ML IV PRN (17:00)
[2023-11-16] MEDS ORDERED: POLYETHYLENE GLYCOL 17 GM/PKT PO PRN (17:00)
[2023-11-16] MEDS ORDERED: MAG SULF 2000 MG/WATER PREMIX 50 ML IV PRN (17:00)
[2023-11-16] MEDS ORDERED: PHARMACY TO DOSE MC PRN (17:10)
[2023-11-16] MEDS ORDERED: MIDO5TAB4 PO (17:24)
[2023-11-16] MEDS ORDERED: ATOR40TA40 PO (17:24)
[2023-11-16] MEDS ORDERED: ARIP5TAB PO (17:24)
[2023-11-16] MEDS ORDERED: FURO20TA8 PO (17:24)
[2023-11-16] MEDS ORDERED: SEVE0.8P2 PO (17:24)
[2023-11-16] MEDS: NACL 0.9% 1,000 ML IV SCH (17:34)
[2023-11-16] MEDS: MEROPENEM 1,000 MG in NACL 0.9% 50 ML IV SCH (17:34)
[2023-11-16 18:34] VITALS: BP 98/70; PULSE 71; RESP 16; TEMP 95.8; O2SAT 96
[2023-11-16 18:35] VITALS: PULSE 70
[2023-11-16 18:38] VITALS: RESP 16; O2SAT 96
[2023-11-16 20:00] VITALS: BP 138/72; PULSE 64; PULSE 73; RESP 17; TEMP 96.7; O2SAT 96
[2023-11-16] MEDS: HYDRAGUARD CREAM TP ONE (20:56)
[2023-11-16] MEDS: HYDRAGUARD CREAM TP SCH (21:59)
[2023-11-16 23:07] VITALS: BP 128/69; PULSE 75; RESP 17; TEMP 96.7; O2SAT 97
[2023-11-17] VITALS (7 sets, daily range): BP systolic 102–139; BP diastolic 51–83; PULSE 75–94; RESP 16–18; TEMP 96.8–98.2; O2SAT 97–100
[2023-11-17 07:37] LABS: ALANINE AMINOTRANSFERASE 23 U/L (12-78); ALBUMIN 2.6 g/dL (3.4-5.0); ALKALINE PHOSPHATASE 57 U/L (50-136); ASPARTATE AMINOTRANSFERASE 24 U/L (15-37); CALCIUM 10.6 mg/dL (8.5-10.1); CARBON DIOXIDE 29.1 mmol/L (21-32); CHLORIDE 95 mmol/L (98-107); GLUCOSE 70 mg/dL (74-106); MAGNESIUM 2.1 mg/dL (1.8-2.4); PHOSPHORUS 4.3 mg/dL (2.5-4.9); POTASSIUM 4.1 mmol/L (3.5-5.1); SODIUM SERUM 135 mmol/L (136-145); TOTAL BILIRUBIN 0.7 mg/dL (0.0-1.0); TOTAL PROTEIN, SERUM 9.9 g/dL (6.4-8.2); UREA NITROGEN, BLOOD 23 mg/dL (7-18)
[2023-11-17 07:38] LABS: CREATININE 7.5 mg/dL (0.6-1.3)
[2023-11-17 08:29] LABS: BASOPHILS # (AUTO) 0.1 K/uL (0.00-0.22); BASOPHILS % (AUTO) 0.9 % (0.0-2.0); EOSINOPHILS # (AUTO) 0.1 K/uL (0-0.4); HEMATOCRIT 25.9 % (36-48); HEMOGLOBIN 8.4 g/dL (12.0-16.0); LYMPHOCYTES # (AUTO) 1.5 K/uL (2.5-16.5); LYMPHOCYTES % (AUTO) 24.4 % (20.5-51.1); MEAN CORPUSCULAR HEMOGLOBIN 34 pg (27-31); MEAN CORPUSCULAR HGB CONC 33 g/dL (33-37); MEAN CORPUSCULAR VOLUME 103.5 fL (80-94); MONOCYTES # (AUTO) 0.5 K/uL (0.8-1.0); MONOCYTES % (AUTO) 8.1 % (1.7-9.3); NEUTROPHILS # (AUTO) 3.9 K/uL (1.8-7.7); NEUTROPHILS % (AUTO) 64.6 % (42.2-75.2); PLATELET COUNT (AUTO) 172 K/uL (140-450); RED CELL DISTRIBUTION WIDTH 16.6 % (11.6-13.7)
[2023-11-17] MEDS: MILD SOAP AND WATER TP SCH (13:18)
[2023-11-17] MEDS: SEVELAMER CARBONATE 800 MG TAB PO SCH (19:54)
[2023-11-18] VITALS: BP 114/68; PULSE 96; PULSE 97; RESP 19; TEMP 97; O2SAT 96
[2023-11-18 04:00] VITALS: BP 118/74; PULSE 95; RESP 19; TEMP 97.7; O2SAT 96
[2023-11-18 07:04] LABS: BASOPHILS % (AUTO) 0.5 % (0.0-2.0); EOSINOPHILS # (AUTO) 0.1 K/uL (0-0.4); EOSINOPHILS % (AUTO) 1.8 % (0.0-4.0); HEMATOCRIT 24.7 % (36-48); HEMOGLOBIN 8.4 g/dL (12.0-16.0); LYMPHOCYTES # (AUTO) 1.9 K/uL (2.5-16.5); LYMPHOCYTES % (AUTO) 28.6 % (20.5-51.1); MEAN CORPUSCULAR HEMOGLOBIN 35 pg (27-31); MEAN CORPUSCULAR HGB CONC 34 g/dL (33-37); MEAN CORPUSCULAR VOLUME 102.8 fL (80-94); MONOCYTES # (AUTO) 0.6 K/uL (0.8-1.0); MONOCYTES % (AUTO) 8.9 % (1.7-9.3); NEUTROPHILS % (AUTO) 60.2 % (42.2-75.2); PLATELET COUNT (AUTO) 162 K/uL (140-450); RED BLOOD CELL COUNT(AUTO) 2.41 MIL/uL (4.20-5.40); RED CELL DISTRIBUTION WIDTH 17.4 % (11.6-13.7); WHITE BLOOD COUNT (AUTO) 6.7 K/uL (4.8-10.8)
[2023-11-18 07:28] LABS: ALANINE AMINOTRANSFERASE 22 U/L (12-78); ALBUMIN 2.6 g/dL (3.4-5.0); ALKALINE PHOSPHATASE 56 U/L (50-136); ANION GAP 12.4 (8-16); ASPARTATE AMINOTRANSFERASE 20 U/L (15-37); CALCIUM 10.2 mg/dL (8.5-10.1); CARBON DIOXIDE 30.6 mmol/L (21-32); CHLORIDE 97 mmol/L (98-107); GLUCOSE 80 mg/dL (74-106); MAGNESIUM 2.1 mg/dL (1.8-2.4); PHOSPHORUS 3.3 mg/dL (2.5-4.9); SODIUM SERUM 136 mmol/L (136-145); TOTAL BILIRUBIN 0.6 mg/dL (0.0-1.0); TOTAL PROTEIN, SERUM 9.7 g/dL (6.4-8.2); UREA NITROGEN, BLOOD 22 mg/dL (7-18)
[2023-11-18 07:33] LABS: CREATININE 6.6 mg/dL (0.6-1.3)
[2023-11-18 08:00] VITALS: BP 148/71; PULSE 80; PULSE 85; PULSE 90; RESP 18; TEMP 97.8; O2SAT 98; O2SAT 99
[2023-11-18] MEDS: ATORVASTATIN 20 MG TAB PO SCH (08:29)
[2023-11-18] MEDS: ARIPiprazole 10 MG TAB PO SCH (08:29)
[2023-11-18] MEDS ORDERED: ARIPIPRAZOLE PO SCH (09:00)
[2023-11-18] MEDS ORDERED: NON-FORMULARY ITEM (Atorvastatin Calcium 1 TAB) PO SCH (09:00)
[2023-11-18] MEDS ORDERED: LEVOFLOXACIN 250 MG/D5 PREMIX 50 ML IV SCH (09:00)
[2023-11-18 16:00] VITALS: BP 108/58; PULSE 82; RESP 18; TEMP 98; O2SAT 100
[2023-11-18 20:00] VITALS: BP 119/65; PULSE 86; RESP 18; TEMP 97.3; O2SAT 96
[2023-11-19] VITALS (7 sets, daily range): BP systolic 109–152; BP diastolic 56–84; PULSE 80–88; RESP 16–18; TEMP 96.6–97.8; O2SAT 94–96
[2023-11-19 07:05] LABS: BASOPHILS % (AUTO) 0.5 % (0.0-2.0); EOSINOPHILS # (AUTO) 0.1 K/uL (0-0.4); EOSINOPHILS % (AUTO) 2.5 % (0.0-4.0); HEMATOCRIT 23.3 % (36-48); HEMOGLOBIN 7.9 g/dL (12.0-16.0); LYMPHOCYTES # (AUTO) 1.8 K/uL (2.5-16.5); LYMPHOCYTES % (AUTO) 31.5 % (20.5-51.1); MEAN CORPUSCULAR HEMOGLOBIN 35 pg (27-31); MEAN CORPUSCULAR HGB CONC 34 g/dL (33-37); MEAN CORPUSCULAR VOLUME 102.3 fL (80-94); MONOCYTES # (AUTO) 0.5 K/uL (0.8-1.0); NEUTROPHILS # (AUTO) 3.3 K/uL (1.8-7.7); NEUTROPHILS % (AUTO) 56.5 % (42.2-75.2); PLATELET COUNT (AUTO) 159 K/uL (140-450); RED BLOOD CELL COUNT(AUTO) 2.28 MIL/uL (4.20-5.40); RED CELL DISTRIBUTION WIDTH 17.1 % (11.6-13.7); WHITE BLOOD COUNT (AUTO) 5.9 K/uL (4.8-10.8)
[2023-11-19 07:35] LABS: ALANINE AMINOTRANSFERASE 17 U/L (12-78); ALBUMIN 2.5 g/dL (3.4-5.0); ALKALINE PHOSPHATASE 52 U/L (50-136); ANION GAP 15.1 (8-16); ASPARTATE AMINOTRANSFERASE 22 U/L (15-37); CALCIUM 11.1 mg/dL (8.5-10.1); CARBON DIOXIDE 27.8 mmol/L (21-32); CHLORIDE 97 mmol/L (98-107); GLUCOSE 91 mg/dL (74-106); PHOSPHORUS 4.2 mg/dL (2.5-4.9); POTASSIUM 3.9 mmol/L (3.5-5.1); SODIUM SERUM 136 mmol/L (136-145); TOTAL BILIRUBIN 0.6 mg/dL (0.0-1.0); TOTAL PROTEIN, SERUM 9.6 g/dL (6.4-8.2); UREA NITROGEN, BLOOD 31 mg/dL (7-18)
[2023-11-19 07:37] LABS: CREATININE 8.8 mg/dL (0.6-1.3)
[2023-11-19] MEDS: EPOETIN ALFA 4,000 UNITS/ML VIAL IV SCH (08:23)
[2023-11-19] MEDS: MELATONIN 3 MG TAB PO PRN (22:27)
[2023-11-20] VITALS: BP 104/74; PULSE 80; RESP 18; TEMP 97.8; O2SAT 100
[2023-11-20 04:00] VITALS: BP 108/70; PULSE 69; RESP 18; TEMP 97.8; O2SAT 100
[2023-11-20 07:01] LABS: BASOPHILS # (AUTO) 0.1 K/uL (0.00-0.22); BASOPHILS % (AUTO) 1.1 % (0.0-2.0); EOSINOPHILS # (AUTO) 0.2 K/uL (0-0.4); EOSINOPHILS % (AUTO) 3.8 % (0.0-4.0); HEMATOCRIT 24.5 % (36-48); HEMOGLOBIN 8.2 g/dL (12.0-16.0); MEAN CORPUSCULAR HEMOGLOBIN 34 pg (27-31); MEAN CORPUSCULAR HGB CONC 34 g/dL (33-37); MEAN CORPUSCULAR VOLUME 102.3 fL (80-94); MONOCYTES # (AUTO) 0.6 K/uL (0.8-1.0); MONOCYTES % (AUTO) 9.5 % (1.7-9.3); NEUTROPHILS % (AUTO) 51.6 % (42.2-75.2); PLATELET COUNT (AUTO) 92 K/uL (140-450); RED BLOOD CELL COUNT(AUTO) 2.39 MIL/uL (4.20-5.40); RED CELL DISTRIBUTION WIDTH 17.1 % (11.6-13.7); WHITE BLOOD COUNT (AUTO) 5.9 K/uL (4.8-10.8)
[2023-11-20 07:51] LABS: ALANINE AMINOTRANSFERASE 17 U/L (12-78); ALBUMIN 2.6 g/dL (3.4-5.0); ALKALINE PHOSPHATASE 54 U/L (50-136); ANION GAP 12.9 (8-16); ASPARTATE AMINOTRANSFERASE 20 U/L (15-37); CALCIUM 10.8 mg/dL (8.5-10.1); CARBON DIOXIDE 31.1 mmol/L (21-32); CHLORIDE 98 mmol/L (98-107); GLUCOSE 92 mg/dL (74-106); PHOSPHORUS 3.6 mg/dL (2.5-4.9); SODIUM SERUM 138 mmol/L (136-145); TOTAL BILIRUBIN 0.6 mg/dL (0.0-1.0); TOTAL PROTEIN, SERUM 9.7 g/dL (6.4-8.2); UREA NITROGEN, BLOOD 27 mg/dL (7-18)
[2023-11-20 07:54] LABS: CREATININE 7.8 mg/dL (0.6-1.3)
[2023-11-20 08:00] VITALS: BP 128/81; PULSE 79; PULSE 89; RESP 17; RESP 18; TEMP 97.4; O2SAT 100; O2SAT 95
[2023-11-20] MEDS: levoFLOXacin 250 MG TAB PO SCH (11:23)
[2023-11-20 16:00] VITALS: BP 122/62; PULSE 92; RESP 18; TEMP 97.7; O2SAT 97
[2023-11-20 20:00] VITALS: BP 112/66; PULSE 91; RESP 18; RESP 20; TEMP 96.4; O2SAT 97
[2023-11-21 04:00] VITALS: BP 108/70; PULSE 69; RESP 18; TEMP 96.9; O2SAT 100
[2023-11-21 08:00] VITALS: PULSE 88; RESP 18; O2SAT 96
[2023-11-21 08:43] LABS: EOSINOPHILS # (AUTO) 0.2 K/uL (0-0.4); LYMPHOCYTES # (AUTO) 1.6 K/uL (2.5-16.5); NEUTROPHILS # (AUTO) 3.1 K/uL (1.8-7.7); PLATELET COUNT (AUTO) 140 K/uL (140-450); RED CELL DISTRIBUTION WIDTH 17.2 % (11.6-13.7)
[2023-11-21 08:50] LABS: BASOPHILS % (AUTO) 0.4 % (0.0-2.0); EOSINOPHILS % (AUTO) 2.7 % (0.0-4.0); HEMATOCRIT 23.9 % (36-48); LYMPHOCYTES % (AUTO) 29.5 % (20.5-51.1); MEAN CORPUSCULAR HEMOGLOBIN 34 pg (27-31); MEAN CORPUSCULAR HGB CONC 34 g/dL (33-37); MEAN CORPUSCULAR VOLUME 101.6 fL (80-94); MONOCYTES # (AUTO) 0.7 K/uL (0.8-1.0); NEUTROPHILS % (AUTO) 55.4 % (42.2-75.2); RED BLOOD CELL COUNT(AUTO) 2.35 MIL/uL (4.20-5.40); WHITE BLOOD COUNT (AUTO) 5.6 K/uL (4.8-10.8)
[2023-11-21 09:03] LABS: ALANINE AMINOTRANSFERASE 15 U/L (12-78); ALBUMIN 2.6 g/dL (3.4-5.0); ALKALINE PHOSPHATASE 56 U/L (50-136); ANION GAP 13.7 (8-16); ASPARTATE AMINOTRANSFERASE 22 U/L (15-37); CALCIUM 11.3 mg/dL (8.5-10.1); CARBON DIOXIDE 29.4 mmol/L (21-32); CHLORIDE 96 mmol/L (98-107); GLUCOSE 85 mg/dL (74-106); PHOSPHORUS 4.4 mg/dL (2.5-4.9); POTASSIUM 4.1 mmol/L (3.5-5.1); SODIUM SERUM 135 mmol/L (136-145); TOTAL BILIRUBIN 0.7 mg/dL (0.0-1.0); TOTAL PROTEIN, SERUM 9.9 g/dL (6.4-8.2); UREA NITROGEN, BLOOD 38 mg/dL (7-18)
[2023-11-21 09:07] LABS: CREATININE 10.4 mg/dL (0.6-1.3)
[2023-11-21] MEDS ORDERED: LEVO250T89 PO (11:59)
[2023-11-21 14:45] VITALS: BP 142/83; PULSE 96; RESP 18; TEMP 96.8
== END 2023-11-21 17:05 | DRG 70 ==
LOC: MED 14:16 → MTU 17:04
PROVIDERS: ADMIT Family Medicine; ATTEND Family Medicine
PROC: 5A1D70Z Performance of Urinary Filtration, Intermittent, Less than 6 Hours Per Day (ICD-10-PCS; 2023-11-17)
PROC: 5A1D70Z Performance of Urinary Filtration, Intermittent, Less than 6 Hours Per Day (ICD-10-PCS; principal; 2023-11-19)
DX: G93.41 Metabolic encephalopathy (principal); N18.6 End stage renal disease; N39.0 Urinary tract infection, site not specified; I12.0 Hypertensive chronic kidney disease with stage 5 chronic kidney disease or end stage renal disease; Z20.822 Contact with and (suspected) exposure to COVID-19; B96.20 Unspecified Escherichia coli [E. coli] as the cause of diseases classified elsewhere; F03.90 Unspecified dementia, unspecified severity, without behavioral disturbance, psychotic disturbance, mood disturbance, and anxiety; J45.909 Unspecified asthma, uncomplicated; E11.22 Type 2 diabetes mellitus with diabetic chronic kidney disease; Z99.2 Dependence on renal dialysis; D53.9 Nutritional anemia, unspecified; Z88.5 Allergy status to narcotic agent; Z88.0 Allergy status to penicillin; Z91.011 Allergy to milk products; Z79.82 Long term (current) use of aspirin; Z79.899 Other long term (current) drug therapy; Z86.73 Personal history of transient ischemic attack (TIA), and cerebral infarction without residual deficits
CPT/HCPCS: 36415; 70450; 71045; 76770; 80048; 80053; 81001; 83605; 83735; 83880; 84100; 84484; 85025; 87040; 87081; 87086; 90935; 92526; 93005; 96365; 97163-GP; 97530; 99285; J0885; J1644; J1956; J2185; Q0092